=== PATIENT | female | born 1945 | race Caucasian/White ===

== ENCOUNTER 2023-02-26 10:02 | Outpatient (OUT) | payer MEDICARE, SELFPAY ==
--- NOTE | 2023-02-26 10:16 | US_ITS ---
The [address] [address] Patient Name: MEERA XIONG MRN: [id number] date: 1945 Sex: F Assigned Patient Location: US Current Patient Location: US Accession/Order Number: [id number] Exam Date: 02/26/2023 10:16 Report Date: 02/26/2023 14:31 At the request of: LAURA KIMBALL Procedure: US abdomen complete EXAM: US abdomen complete HISTORY: Periumbilical abdominal pain R10.33 COMPARISON: None. TECHNIQUE: Ultrasound of the abdomen was performed. FINDINGS: Normal contour and echotexture of the liver. No discrete hepatic mass. No intrahepatic or extrahepatic biliary ductal dilatation. Common bile duct within normal limits. Patent and normal direction color flow of the portal vein. Gallbladder is not well-visualized. Normal visualized spleen. Normal visualized pancreas. Normal echogenicity of the right kidney, which measures 10.8. cm in length. No hydronephrosis. Cortical thinning. Simple cyst, 3.0 cm, interpolar region. Normal echogenicity of the left kidney, which measures 9.2 cm in length. No hydronephrosis. Cortical thinning. Simple cyst, 0.8 cm within the upper pole. No free fluid. Normal visualized aortic diameters. IMPRESSION: 1. Gallbladder is not well-visualized. 2. No definitive findings to explain the patient's periumbilical pain although the umbilicus was not focally interrogated. 3. Bilateral renal cortical thinning/atrophy. Electronically authenticated by: HILARIO OGLESBY Date: 02/26/2023 14:31
== END 2023-02-26 10:03 ==
LOC: US 10:06
PROVIDERS: PCP Family Medicine; Visit Provider Family Medicine
DX: R10.33 Periumbilical pain (principal); Z80.0 Family history of malignant neoplasm of digestive organs; N26.1 Atrophy of kidney (terminal)
CPT/HCPCS: 76700

== ENCOUNTER 2023-03-28 09:26 | Outpatient (OUT) | payer MEDICARE, SELFPAY ==
[2023-03-28 10:14] LABS: Hematocrit 38.9 % (36.0-48.0); Hemoglobin 12.9 g/dL (12.0-16.0); Mean Corpuscular HGB Conc 33.2 g/dL (29.9-35.2); Mean Corpuscular Hemoglobin 32.3 pg (26.7-34.0); Mean Corpuscular Volume 97.5 fL (81.0-99.0); Mean Platelet Volume 10.2 fL (9.5-13.5); Platelet Count 273 10^3/uL (150-450); Red Blood Count 3.99 10^6/uL (4.20-5.40); Red Cell Distribution Width 12.5 % (11.0-15.0); White Blood Count 6.8 10^3/uL (4.0-11.0)
[2023-03-28 11:35] LABS: Sodium 142 mmol/L (136-145)
[2023-03-28 11:36] LABS: Alanine Aminotransferase 29 U/L (14-59); Albumin Level 4.1 g/dL (3.4-5.0); Alkaline Phosphatase 78 U/L (46-116); Anion Gap 14.9; Aspartate Amino Transferase 20 U/L (15-37); BUN Creatinine Ratio 16.5; Bilirubin Total 0.6 mg/dL (0.2-1.0); Carbon Dioxide 27.4 mmol/L (21.0-32.0); Chloride 104 mmol/L (98-107); Estimated GFR (African America 52 (>=60); Estimated GFR (Non-African Ame 43 (>=60); Glucose 128 mg/dL (74-106); Potassium 4.3 mmol/L (3.5-5.1); Total Protein 8.1 g/dL (6.4-8.2)
[2023-03-28 11:37] LABS: Chol HDL Ratio 2.2; Cholesterol 134 mg/dL (<=200); HDL Cholesterol 60 mg/dL (40-60); Thyroid Stimulating Hormone 0.571 uIU/mL (0.358-3.740); Triglycerides 66 mg/dL (<=150); VLDL CHOLESTEROL 13.2 mg/dL
[2023-03-28 12:41] LABS: Microalbumin Urine Random <1.3 mg/dL (<=30.0)
[2023-03-28 13:54] LABS: Estimated Average Glucose 131 mg/dL; Glycohemoglobin A1C 6.2 % (4.5-6.2)
== END 2023-03-28 09:27 | disposition home or self-care (01) ==
PROVIDERS: PCP Family Medicine
DX: E11.9 Type 2 diabetes mellitus without complications (principal); R41.3 Other amnesia; I10 Essential (primary) hypertension; E03.9 Hypothyroidism, unspecified
CPT/HCPCS: 36415; 80053; 80061; 82043; 82306; 82607; 82746; 83036; 84443; 85027

== ENCOUNTER 2023-12-11 15:39 | Emergency (ER) | payer MEDICARE, SELFPAY ==
[2023-12-11 15:46] VITALS: BP 146/59; PULSE 98; TEMP 37; O2SAT 100
--- NOTE | 2023-12-11 15:49 | XR_ITS ---
The [address] [address] Patient Name: MEERA XIONG MRN: [id number] date: 1945 Sex: F Assigned Patient Location: ER Current Patient Location: ER Accession/Order Number: [id number] Exam Date: 12/11/2023 15:58 Report Date: 12/11/2023 16:12 At the request of: ZAHRA PINA Procedure: XR elbow RT min 3V PROCEDURE: XR elbow RT min 3V HISTORY: fall ; acute right elbow pain COMPARISON: None. FINDINGS: BONES:No acute fracture or dislocation. Degenerative osteophyte projecting from coronoid process. Separate corticated ossifications adjacent the olecranon at insertion of the triceps tendon; heterotopic bone formation from remote injury versus remote fracture of large enthesophytes. SOFT TISSUES:No visible soft tissue swelling. EFFUSION:None visible. OTHER: Negative. XR/XR elbow RT min 3V IMPRESSION: 1. No appreciable acute abnormality. 2. Degenerative joint disease of the elbow. Electronically authenticated by: NUBIA CORREA Date: 12/11/2023 16:12
--- NOTE | 2023-12-11 15:49 | XR_ITS ---
The [address] [address] Patient Name: MEERA XIONG MRN: [id number] date: 1945 Sex: F Assigned Patient Location: ER Current Patient Location: ER Accession/Order Number: [id number] Exam Date: 12/11/2023 15:58 Report Date: 12/11/2023 16:18 At the request of: ZAHRA PINA Procedure: XR ribs RT min 3V w CXR1V EXAMINATION: XR ribs RT min 3V w CXR1V HISTORY: fall ; acute right rib pain COMPARISON: No relevant comparison available. FINDINGS: LUNGS: No significant pulmonary parenchymal abnormalities. PLEURA: No pneumothorax, effusion, or pleural thickening. MEDIASTINUM: No visible mass or adenopathy. CARDIAC: No cardiomegaly or cardiac silhouette abnormality. RIBS: Question of fractures of the lateral left fourth and 5th ribs. OTHER: Negative. XR/XR ribs RT min 3V w CXR1V IMPRESSION: 1. No acute cardiopulmonary process. 2. No appreciable right rib fractures. 3. Questionable fractures of the lateral left fourth and 5th ribs. (Patient history states right rib pain.) Electronically authenticated by: NUBIA CORREA Date: 12/11/2023 16:18
--- NOTE | 2023-12-11 15:50 | ED.GENADUL1 ---
HPI HPI - General Adult General Chief complaint: Upper Respiratory Infection Stated complaint: Hip Pain from Fall at home Time Seen by Provider: 12/11/23 15:47 Source: patient Mode of arrival: walk-in Limitations: no limitations History of Present Illness HPI narrative: 78-year-old female presents for pain to her right ribs and right elbow. 3 days ago she fell and landed on this area. She did not hit her head and her hip does not hurt at all. She has been able to ambulate. No abdominal pain. The pain is moderate and worse if she pushes on it. Related Data Home Medications ?Medication ?Instructions ?Recorded ?Confirmed amlodipine 10 mg tablet 10 mg PO DAILY 12/11/23 12/11/23 aspirin 81 mg chewable tablet 81 mg PO DAILY 12/11/23 12/11/23 (Juanita Chewable Low Dose Aspirin) cholecalciferol (vitamin D3) 25 25 mcg PO DAILY 12/11/23 12/11/23 mcg (1,000 unit) capsule (Vitamin D3) glimepiride 2 mg tablet 2 mg PO BID 12/11/23 12/11/23 liothyronine 5 mcg tablet 5 mcg PO .three times a week 12/11/23 12/11/23 lisinopril 40 mg tablet 40 mg PO DAILY 12/11/23 12/11/23 loratadine 10 mg tablet (Allergy 10 mg PO DAILY 12/11/23 12/11/23 Relief (loratadine)) lovastatin 40 mg tablet 40 mg PO DAILY 12/11/23 12/11/23 magnesium 250 mg tablet 250 mg PO DAILY 12/11/23 12/11/23 metformin 500 mg tablet 500 mg PO BID 12/11/23 12/11/23 Allergies Allergy/AdvReac Type Severity Reaction Status Date / Time No Known Drug Allergies Allergy Verified 12/11/23 15:46 Opioid HPI Opioid Management Most Recent Opioid Data: No Data to Display Review of Systems ROS Narrative A ten point review of systems is negative except as noted above. Exam Narrative Exam Narrative: Nurses note and vital signs reviewed and patient is not hypoxic. General: The patient appears well and in no apparent distress. Patient is resting comfortably on cart. Skin: Warm, dry, no pallor noted. There is no rash noted. Head: Normocephalic, atraumatic Eye: Normal conjunctiva, no drainage Ears, Nose, Mouth, and Throat: oral mucosa is moist. Nares patent. Cardiovascular: Regular Rate and Rhythm; she has some tenderness on the right anterior inferior rib region without crepitus bruise or abrasion Respiratory: Patient is in no distress, no accessory muscle use, lungs are clear to auscultation, no wheezing, rales or rhonchi Back: non-tender GI: Normal bowel sounds, no tenderness to palpation, no masses appreciated. No rebound, guarding, or rigidity noted. Musculoskeletal: Right elbow has some yellow bruising but has full range of motion, she is fully able to extend it. No break in the skin. Neurological: Awake and alert Psychiatric: Cooperative Constitutional Vital Signs, click to edit/add: Last Vital Signs Temp 98.6 F 12/11/23 15:46 Pulse 98 H 12/11/23 15:46 Resp 17 12/11/23 15:46 BP 146/59 H 12/11/23 15:46 Pulse Ox 100 12/11/23 15:46 O2 Del Method Room Air 12/11/23 15:46 Course Vital Signs Vital signs: Vital Signs Temperature 98.6 F 12/11/23 15:46 Pulse Rate 98 H 12/11/23 15:46 Respiratory Rate 17 12/11/23 15:46 Blood Pressure 146/59 H 12/11/23 15:46 Pulse Oximetry 100 12/11/23 15:46 Oxygen Delivery Method Room Air 12/11/23 15:46 Temperature 98.6 F 12/11/23 15:46 Pulse Rate 98 H 12/11/23 15:46 Respiratory Rate 17 12/11/23 15:46 Blood Pressure 146/59 H 12/11/23 15:46 Pulse Oximetry 100 12/11/23 15:46 Oxygen Delivery Method Room Air 12/11/23 15:46 Medical Decision Making MDM Narrative Medical decision making narrative: X-rays of elbow and ribs show no fracture. Findings are discussed with the patient and her family and she is discharged home. She is recommended Tylenol and ice. Treatment diagnosis and follow-up were discussed with the patient. The patient has no symptoms on the left side of her chest and the findings on the rib x-rays do not correlate with any symptoms on the left side. Differential Diagnosis Differential Diagnosis: Rib fracture, rib contusion, pneumothorax, elbow fracture, elbow contusion Imaging Data Rib x-rays: Radiologist's impression: ITS Impressions Elbow X-Ray 12/11/23 15:49 IMPRESSION: 1. No appreciable acute abnormality. 2. Degenerative joint disease of the elbow. Electronically authenticated by: NUBIA CORREA Date: 12/11/2023 16:12 Ribs X-Ray 12/11/23 15:49 IMPRESSION: 1. No acute cardiopulmonary process. 2. No appreciable right rib fractures. 3. Questionable fractures of the lateral left fourth and 5th ribs. (Patient history states right rib pain.) Electronically authenticated by: NUBIA CORREA Date: 12/11/2023 16:18 Discharge Plan Discharge Stand Alone Forms: Portal Instructions Chief Complaint: Upper Respiratory Infection Clinical Impression: Chest wall contusion Patient Disposition: Home, Self-Care Time of Disposition Decision: 16:31 Condition: Good Mode of Transportation: Private Vehicle Prescriptions / Home Meds: No Action amlodipine 10 mg tablet 10 mg PO DAILY liothyronine 5 mcg tablet 5 mcg PO .three times a week lovastatin 40 mg tablet 40 mg PO DAILY metformin 500 mg tablet 500 mg PO BID lisinopril 40 mg tablet 40 mg PO DAILY glimepiride 2 mg tablet 2 mg PO BID loratadine [Allergy Relief (loratadine)] 10 mg tablet 10 mg PO DAILY aspirin [Juanita Chewable Aspirin] 81 mg tablet,chewable 81 mg PO DAILY magnesium 250 mg tablet 250 mg PO DAILY cholecalciferol (vitamin D3) [Vitamin D3] 25 mcg (1,000 unit) capsule 25 mcg PO DAILY Print Language: Nepalese Instructions: Rib Contusion (ED) Referrals: Paty Dyer DO [Primary Care Provider] - 1 week
== END 2023-12-11 16:37 | disposition home or self-care (01) ==
PROVIDERS: Emergency Provider Emergency Medicine; PCP Family Medicine
DX: S20.219A Contusion of unspecified front wall of thorax, initial encounter (principal); W19.XXXA Unspecified fall, initial encounter; Z79.82 Long term (current) use of aspirin; Z79.899 Other long term (current) drug therapy; Z79.890 Hormone replacement therapy; Z79.84 Long term (current) use of oral hypoglycemic drugs
CPT/HCPCS: 71101; 73080; 99284

== ENCOUNTER 2024-02-08 08:40 | Outpatient (OUT) | payer MEDICARE, OTHER, SELFPAY ==
--- NOTE | 2024-02-08 08:45 | MM_ITS ---
Patient Name: MEERA XIONG MR#: [id number] : 1945 Exam Date: 02/08/2024 Ordering Doctor: Paty Dyer RADIOLOGY REPORT PROCEDURE: MM TOMOSYNTHESIS SCREENING BI COMPARISON: MG MAMM SCREEN 3D KARSTEN CAD, 02/06/2023. MG MAMM SCREEN 3D KARSTEN CAD, 02/02/2022. MG MAMM SCREEN 3D KARSTEN CAD, 01/31/2021. MG MAMM KARSTEN SCRN W CAD DIG, 09/12/2013. INDICATIONS: Screening Calculator Name NCI Breast Cancer Risk Assessment Tool 5 Year Breast Cancer Risk 1.80% Lifetime Breast Cancer Risk 3.00% Personal Breast Cancer No Personal Ovarian Cancer No Treatments None Family Cancers Aunt-maternal with breast cancer at age 83; Mother with pancreatic cancer at age 84. LOCATION: [facility] BREAST COMPOSITION: There are scattered areas of fibroglandular density. FINDINGS: DIAGNOSTIC CATEGORY 2--BENIGN FINDING: RIGHT BREAST: No significant suspicious finding. Scattered benign-appearing calcifications are present. Stable, chronic lower-outer quadrant lymph node. No significant change has occurred. LEFT BREAST: No significant suspicious finding. Scattered benign-appearing calcifications are present. No significant change has occurred. RECOMMENDATIONS: ROUTINE MAMMOGRAM AND CLINICAL EVALUATION IN 12 MONTHS. PLEASE NOTE: A NORMAL MAMMOGRAM DOES NOT EXCLUDE THE POSSIBILITY OF BREAST CANCER. A CLINICALLY SUSPICIOUS PALPABLE LUMP SHOULD BE BIOPSIED. Dictated by: Billy Pace M.D. on 02/08/2024 at 14:09 Approved by: Billy Pace M.D. on 02/08/2024 at 14:12
--- NOTE | 2024-02-08 08:46 | XR_ITS ---
[address] [address] Patient Name: MEERA XIONG MRN: [id number] date: 1945 Sex: F Assigned Patient Location: [facility] Current Patient Location: [facility] Accession/Order Number: [id number] Exam Date: 02/08/2024 09:30 Report Date: 02/08/2024 11:55 At the request of: FERNANDO KAPADIA Procedure: XR DEXA axial skeleton EXAMINATION: XR DEXA axial skeleton HISTORY: Postmenopausal Status COMPARISON: DEXA bone densitometry 02/02/2022 TECHNIQUE: Dual-energy X-ray absorptiometry (DXA) was performed. FINDINGS: SPINE ANALYSIS: Average bone mineral density is 1.663 g/cm2. T-score (standard deviation relative to young adult mean): 4.0 . +0.9% change is prior study. HIP ANALYSIS: Lowest bone mineral density is within the right femoral neck, 0.963 g/cm2. T-score (standard deviation relative to young adult mean): -0.5 . -4.6% change since prior study. XR/XR DEXA axial skeleton IMPRESSION: [employer] Classification: Normal - Low Fracture Risk FRAX: Cannot be calculated. Electronically authenticated by: NUBIA CORREA Date: 02/08/2024 11:55
== END 2024-02-08 08:41 | disposition home or self-care (01) ==
LOC: MAMMO 08:40
PROVIDERS: PCP Family Medicine; Visit Provider Family Medicine
DX: Z12.31 Encounter for screening mammogram for malignant neoplasm of breast (principal); Z78.0 Asymptomatic menopausal state; Z80.3 Family history of malignant neoplasm of breast; Z80.8 Family history of malignant neoplasm of other organs or systems
CPT/HCPCS: 77063; 77067; 77080

== ENCOUNTER 2024-05-21 16:11 | Emergency (ER) | payer MEDICARE, SELFPAY ==
[2024-05-21 16:19] VITALS: BP 145/59; PULSE 88; TEMP 36.5; O2SAT 100; BMI 22.9
--- NOTE | 2024-05-21 16:39 | CT_ITS ---
The [address] [address] Patient Name: MEERA XIONG MRN: [id number] date: 1945 Sex: F Assigned Patient Location: ER Current Patient Location: Accession/Order Number: [id number] Exam Date: 05/21/2024 17:50 Report Date: 05/21/2024 18:52 At the request of: AMILCAR SANCHEZ Procedure: CT abdomen pelvis w con EXAM: CT abdomen pelvis w con HISTORY: R abd pain COMPARISON: None. TECHNIQUE: Axial CT imaging was performed through the abdomen and pelvis with intravenous contrast. Multiplanar reformats were performed. Dose reduction techniques were achieved by using automated exposure control and/or adjustment of mA and/or kV according to patient size and/or use of iterative reconstruction technique. FINDINGS: Lung bases: There is a 0.2 cm right middle lobe pulmonary nodule. GI upper: Unremarkable. Liver: Hepatic steatosis. Normal size and contour. Gallbladder: Cholecystectomy. Biliary system: No intra or extrahepatic biliary ductal dilatation. Spleen: Normal size. Pancreas: Unremarkable. Adrenal glands: Normal adrenal glands. Kidneys/ureters: Normal contours. No hydronephrosis. There is a 0.3 cm right renal stone. There is a 3.4 cm right renal simple cyst Vessels: No aneurysm. Lymph Nodes: No lymphadenopathy. Small bowel: No wall thickening or dilatation. Colon: No wall thickening or dilatation. Moderate volume stool burden. Appendix: No findings of appendicitis. Peritoneal cavity: No free fluid or pneumoperitoneum. Lower : Unremarkable. Bones: No acute bony abnormality. Soft tissues: No acute finding. Additional findings: None. CT/CT abdomen pelvis w con IMPRESSION: a 0.3 cm right renal stone. Constipation. Electronically authenticated by: ELVIRA MALIK Date: 05/21/2024 18:52
--- NOTE | 2024-05-21 16:43 | ED_ITS ---
HPI HPI - General Adult General Chief complaint: Abdominal Pain Stated complaint: FLANK PAIN Time Seen by Provider: 05/21/24 16:22 Source: patient Mode of arrival: walk-in Limitations: no limitations History of Present Illness HPI narrative: Patient presents to ED complaining of right sided abdominal pain and flank pain. She said this was going on about a month but maybe a little bit more than a month. About a month ago she saw her doctor for this and they did a KUB and a urine test. They said her urine looked slightly infected but not enough to put her on antibiotics. They have not heard anything back about the KUB so they are assuming that they did not find anything abnormal. Patient continues to have pain with bending twisting sitting up. She has decreased appetite and planes of constipation. They have had her on some stool softeners but it does not seem to work. Patient's family reports a weight loss and the patient reports that food just does not taste good. No chest pain no vomiting no fevers. She denies any UTI symptoms. Related Data Home Medications ?Medication ?Instructions ?Recorded ?Confirmed amlodipine 10 mg tablet 10 mg PO DAILY 12/11/23 12/11/23 aspirin 81 mg chewable tablet 81 mg PO DAILY 12/11/23 12/11/23 (Juanita Chewable Low Dose Aspirin) cholecalciferol (vitamin D3) 25 25 mcg PO DAILY 12/11/23 12/11/23 mcg (1,000 unit) capsule (Vitamin D3) glimepiride 2 mg tablet 2 mg PO BID 12/11/23 12/11/23 liothyronine 5 mcg tablet 5 mcg PO .three times a week 12/11/23 12/11/23 lisinopril 40 mg tablet 40 mg PO DAILY 12/11/23 12/11/23 loratadine 10 mg tablet (Allergy 10 mg PO DAILY 12/11/23 12/11/23 Relief (loratadine)) lovastatin 40 mg tablet 40 mg PO DAILY 12/11/23 12/11/23 magnesium 250 mg tablet 250 mg PO DAILY 12/11/23 12/11/23 metformin 500 mg tablet 500 mg PO BID 12/11/23 12/11/23 Allergies Allergy/AdvReac Type Severity Reaction Status Date / Time No Known Drug Allergies Allergy Verified 05/21/24 16:23 Opioid HPI Opioid Management Most Recent Opioid Data: Last Pain Scale 10 05/21/24 16:48 Review of Systems ROS Status of ROS 10 or more systems reviewed and unremark able except as noted in history and below Exam Narrative Exam Narrative: Time Seen: [] Vital Signs: [Per nurse's notes.] General: [Alert] Skin: [Warm, dry, no rash.] Head: [Normocephalic, atraumatic.] Neck: [Supple, trachea midline.] Eye: [Pupils are equal, round and reactive to light, extraocular movements are intact, normal conjunctiva.] Ears, nose, mouth and throat: oral mucosa moist. Cardiovascular: [Regular rate and rhythm, no murmur.] Respiratory: [Lungs are clear to auscultation, respirations are non-labored, breath sounds are equal.] Chest wall: [No tenderness, no deformity.] Gastrointestinal: [Soft, Tenderness and mild firmness to the right side of the abdomen and right CVA tenderness non distended, normal bowel sounds.] MSK: 5 out of 5 muscle strength x 4 extremities no calf pain or edema Lymphatics: [No lymphadenopathy.] Psychiatric: [Cooperative, appropriate mood & affect.] Neurological: [Alert and oriented to person, place, time, and situation, no focal neurological deficit observed.] Constitutional Vital Signs, click to edit/add: Last Vital Signs Temp 97.7 F 05/21/24 16:19 Pulse 88 05/21/24 16:19 Resp 18 05/21/24 16:19 BP 145/59 H 05/21/24 16:19 Pulse Ox 99 05/21/24 16:50 O2 Del Method Room Air 05/21/24 16:50 Course Vital Signs Vital signs: Vital Signs Temperature 97.7 F 05/21/24 16:19 Pulse Rate 88 05/21/24 16:19 Respiratory Rate 18 05/21/24 16:19 Blood Pressure 145/59 H 05/21/24 16:19 Pulse Oximetry 100 05/21/24 16:19 Oxygen Delivery Method Room Air 05/21/24 16:19 Temperature 97.7 F 05/21/24 16:19 Pulse Rate 88 05/21/24 16:19 Respiratory Rate 18 05/21/24 16:19 Blood Pressure 145/59 H 05/21/24 16:19 Pulse Oximetry 99 05/21/24 16:50 Oxygen Delivery Method Room Air 05/21/24 16:50 Medical Decision Making MDM Narrative Medical decision making narrative: Patient CT scan shows constipation. A right renal stone but no obstructive uropathy. Patient's labs are nonacute. Patient was counseled on taking MiraLAX twice a day until she has regular bowel movements and also using fleets enema at home. Follow-up with family doctor. Return to ER if worsening symptoms. Patient and family are comfortable with care plan for home. Differential Diagnosis Differential Diagnosis: Kidney stone UTI constipation mass Lab Data Lab results reviewed: Yes I reviewed the patient's lab results Labs: Lab Results 05/21/24 05/21/24 Range/Units 16:56 16:59 WBC 8.5 (4.0-11.0) 10^3/uL RBC 3.91 L (4.20-5.40) 10^6/uL Hgb 12.7 (12.0-16.0) g/dL Hct 37.3 (36.0-48.0) % MCV 95.4 (81.0-99.0) fL MCH 32.5 (26.7-34.0) pg MCHC 34.0 (29.9-35.2) g/dL RDW 12.4 (11.0-15.0) % Plt Count 260 (150-450) 10^3/uL MPV 10.2 (9.5-13.5) fL Neut % (Auto) 48.9 (43.0-75.0) % Lymph % (Auto) 35.1 (20.5-60.0) % [place] % (Auto) 13.1 H (1.7-12.0) % Eos % (Auto) 1.8 (0.9-7.0) % Baso % (Auto) 0.7 (0.2-2.0) % Neut # (Auto) 4.1 (1.4-6.5) 10^3/uL Lymph # (Auto) 3.0 (1.2-3.8) 10^3/uL [place] # (Auto) 1.1 H (0.3-0.8) 10^3/uL Eos # (Auto) 0.2 (0.0-0.7) 10^3/uL Baso # (Auto) 0.1 (0.0-0.1) 10^3/uL Abs Immat Gran (auto) 0.03 (0.00-0.03) 10^3/uL Imm/Tot Granulo (auto) 0.4 (0.0-0.5) % Sodium 138 (136-145) mmol/L Potassium 4.5 (3.5-5.1) mmol/L Chloride 101 (98-107) mmol/L Carbon Dioxide 28.7 (21.0-32.0) mmol/L Anion Gap 12.8 BUN 19.0 H (7.0-18.0) mg/dL Creatinine 1.25 H (0.55-1.02) mg/dL Est GFR ( Amer) 50 L (>=60) Est GFR (Non-Af Amer) 41 L (>=60) BUN/Creatinine Ratio 15.2 Glucose 124 H (74-106) mg/dL Calcium 9.5 (8.5-10.1) mg/dL Total Bilirubin 0.4 (0.2-1.0) mg/dL AST 19 (15-37) U/L ALT 19 (14-59) U/L Alkaline Phosphatase 74 (46-116) U/L Total Protein 7.6 (6.4-8.2) g/dL Albumin 3.9 (3.4-5.0) g/dL Globulin 3.7 g/dL Albumin/Globulin Ratio 1.1 Urine Color Yellow (YELLOW) Urine Clarity Clear (CLEAR) Urine pH 6.0 (5.0-9.0) Ur Specific [place] 1.020 (1.005-1.025) Urine Protein Trace (NEG/TRACE) mg/dL Urine Glucose (UA) Negative (NEGATIVE) mg/dL Urine Ketones 15 A (NEGATIVE) mg/dL Urine Occult Blood Negative (NEGATIVE) Urine Nitrite Negative (NEGATIVE) Urine Bilirubin Negative (NEGATIVE) Urine Urobilinogen 1.0 (0.2-1.0) EU/dL Ur Leukocyte Esterase Negative (NEGATIVE) Imaging Data CT scan - abdomen: Radiologist's impression: ITS Impressions Abdomen/Pelvis CT 05/21/24 16:39 IMPRESSION: a 0.3 cm right renal stone. Constipation. Electronically authenticated by: ELVIRA MALIK Date: 05/21/2024 18:52 Discharge Plan Discharge Chief Complaint: Abdominal Pain Clinical Impression: Constipation Patient Disposition: Home, Self-Care Time of Disposition Decision: 18:59 Condition: Good Prescriptions / Home Meds: No Action amlodipine 10 mg tablet 10 mg PO DAILY liothyronine 5 mcg tablet 5 mcg PO .three times a week lovastatin 40 mg tablet 40 mg PO DAILY metformin 500 mg tablet 500 mg PO BID lisinopril 40 mg tablet 40 mg PO DAILY glimepiride 2 mg tablet 2 mg PO BID loratadine [Allergy Relief (loratadine)] 10 mg tablet 10 mg PO DAILY aspirin [Juanita Chewable Aspirin] 81 mg tablet,chewable 81 mg PO DAILY magnesium 250 mg tablet 250 mg PO DAILY cholecalciferol (vitamin D3) [Vitamin D3] 25 mcg (1,000 unit) capsule 25 mcg PO DAILY Print Language: Montenegrin Instructions: Constipation (ED) Referrals: Paty Dyer DO [Primary Care Provider] - 1 week
[2024-05-21 16:50] VITALS: O2SAT 99
[2024-05-21 17:05] LABS: Basophils Absolute Auto 0.1 10^3/uL (0.0-0.1); Basophils Percent Auto 0.7 % (0.2-2.0); Eosinophils Absolute Auto 0.2 10^3/uL (0.0-0.7); Eosinophils Percent Auto 1.8 % (0.9-7.0); Hematocrit 37.3 % (36.0-48.0); Hemoglobin 12.7 g/dL (12.0-16.0); Immature Granulocytes Abs Auto 0.03 10^3/uL (0.00-0.03); Immature Granulocytes Pct Auto 0.4 % (0.0-0.5); Lymphocytes Percent Auto 35.1 % (20.5-60.0); Mean Corpuscular Hemoglobin 32.5 pg (26.7-34.0); Mean Corpuscular Volume 95.4 fL (81.0-99.0); Mean Platelet Volume 10.2 fL (9.5-13.5); Monocytes Absolute Auto 1.1 10^3/uL (0.3-0.8); Monocytes Percent Auto 13.1 % (1.7-12.0); Neutrophils Absolute Auto 4.1 10^3/uL (1.4-6.5); Neutrophils Percent Auto 48.9 % (43.0-75.0); Platelet Count 260 10^3/uL (150-450); Red Blood Count 3.91 10^6/uL (4.20-5.40); Red Cell Distribution Width 12.4 % (11.0-15.0); White Blood Count 8.5 10^3/uL (4.0-11.0)
[2024-05-21 17:05] LABS: Bilirubin Urine NEGATIVE (NEGATIVE); Blood Urine NEGATIVE (NEGATIVE); Clarity Urine CLEAR (CLEAR); Color Urine YELLOW (YELLOW); Glucose Urine UA NEGATIVE (NEGATIVE); Ketones Urine 15 mg/dL (NEGATIVE); Leukocyte Esterase Urine NEGATIVE (NEGATIVE); Nitrite Urine NEGATIVE (NEGATIVE); Protein Urine TRACE mg/dL (NEG/TRACE)
[2024-05-21 17:06] LABS: Urine Microscopic Indicated NO
--- OUTSIDE RECORDS SUMMARY | 2024-05-21 17:13 | XMS_ITS | CCD ---
Author Organization [facility] Care Team Providers Care Discharge Rn Name Role Phone ANYALONG, DR JORDAN Mcnair Admitting Unavailable FURLONG, DR JORDAN Mcnair Attending Unavailable FURLONG, DR JORDAN Mcnair Consulting Unavailable FURLONG, DR JORDAN Mcnair Primary Care Unavailable FURLONG, DR JORDAN Mcnair Primary Care Unavailable NATAPRAWI, MARIN Admitting Unavailable ONECO, DR GUSTAVO Coleman Consulting Unavailable NATAPRAWIRA, MARIN Attending Unavailable NATAPRAWIRA, MARIN Consulting Unavailable FURLONG, DR JORDAN Mcnair Admitting Unavailable FURLONG, DR JORDAN Mcnair Attending Unavailable FURLONG, DR JORDAN Mcnair Consulting Unavailable FURLONG, DR JORDAN Mcnair Primary Care Unavailable LAURA ., DESHAUN Admitting Unavailable LAURA ., DESHAUN Attending Unavailable LAURA ., DESHAUN Consulting Unavailable FURLONG, DR JORDAN Mcnair Primary Care Unavailable BECKY CLIFTON Consulting Unavailable Dyer, Paty Unavailable MARIN RASHID Attending Unavailable Dyer, DO Paty A Primary Care Provider Dyer, DO Paty A Attending Provider Dyer, DO Paty A Primary Care Provider [phone] SAMANTHA Burns Attending Provider Henry Burns Attending Unavailable Henry Burns Admitting Unavailable Dyer, Paty A Primary Care Unavailable Dyer, Paty A Primary Care Unavailable Henry Burns Attending Unavailable Henry Burns Admitting Unavailable Dyer, Paty A Attending Unavailable Dyer, Paty A Primary Care Unavailable Dyer, Paty A Admitting Unavailable Dyer, Paty A Attending Unavailable Dyer, Paty A Primary Care Unavailable Dyer, Paty A Admitting Unavailable Dyer, Paty A Primary Care Unavailable Paty Dyer Admitting Unavailable Paty Dyer Attending Unavailable Medications Current Medications Medication Drug Class(es) Dates Sig (Normalized) Sig (Original) amLODIPine 10 mg oral tablet (20 sources) Dihydropyridine Calcium Channel Luís Start: 11-05-2023 End: 12-26-2023 take 10 mg by mouth once daily Amlodipine Active 10 MG PO Daily December 26, 2023 12:00am take 1 tablet by ollie every twenty-four hours amLODIPine Besylate 10 MG 1 tablet Orall y Once a day Active cholecalciferol 0.025 mg oral capsule (11 sources) Vitamin D Start: 11-05-2023 take 25 ug by mouth once daily Cholecalciferol (Vitamin D3) Active 25 MCG PO Daily November 05, 2023 1:00am take 1 capsule by mo [facility] every twenty-four hours Vitamin D3 25 MCG (1000 UT) 1 capsule Orally Once a day Not-Taking/PRN docusate sodium 100 mg oral capsule (20 sources) Start: 11-05-2023 End: 12-14-2023 take 100 mg by mouth once daily Docusate Sodium Active 100 MG PO Daily December 14, 2023 10:54am take 1 capsule by mo [facility] every twenty-four hours Stool Softener 100 MG 1 capsule as needed Orally Once a day Active levothyroxine sodium 0.075 mg oral tablet (14 sources) l-Thyroxine Start: 11-05-2023 take 1 tablet by mouth once daily in the morning Levothyroxine Active 1 TAB PO Daily November 05, 2023 1:00am FreeTextSi tablet in the morning on an empty stomach Orally Once a day; Note: Source Status: Refill; Refills: 3; Qty: 90 Tablet; Provider: Katherin Ortega take 1 tablet by ollie th once daily in the morning Levothyroxine Sodium 75 MCG 1 tablet in the morning on an empty stomach Orally Once a day for 90 days Active take 1 tablet by ollie th once daily in the morning Levothyroxine Sodium 75 MCG 1 tablet in the morning on an empty stomach Orally Once a day for 90 days Active liothyronine sodium 0.005 mg oral tablet (18 sources) l-Triiodothyronine Start: 11-05-2023 End: 03-26-2024 take 5 ug by mouth three times weekly Liothyronine Active 5 MCG PO 3 Times a week 39 90 March 26, 2024 7:54am take 1 tablet by ollie th three times weekly Liothyronine Sodium 5 MCG 1 tablet Orall y three times a week Active take 1 tablet by ollie th three times weekly Liothyronine Sodium 5 MCG 1 tablet Orall y three times a week Active lovastatin 40 mg oral tablet (14 sources) HMG-CoA Reductase Inhibitor Start: 11-05-2023 take 1 tablet by mouth once daily Lovastatin Active 1 TAB PO Daily November 05, 2023 1:00am FreeTextSi Tablet Orally Once a day; Note: Source Status: Taking; Provider: Katherin Ortega take 1 tablet by ollie th every twenty-four hours Lovastatin 40 MG 1 Tablet Orally Once a day Active meclizine hydrochloride 12.5 mg oral tablet (20 sources) Antiemetic Start: 11-05-2023 End: 12-26-2023 take 1 tablet by mouth three times daily as needed Meclizine Active 12.5 MG PO Three times daily December 26, 2023 8:51am 1 tablet as needed Orally three times a day take 1 tablet by mouth every eig ht hours Meclizine HCl 12.5 MG 1 tablet as needed Orally three times a day Active metFORMIN hydrochloride 500 mg oral tablet (20 sources) Biguanide Start: 12-26-2023 take 500 mg by mouth twice daily Metformin Active 500 MG PO Twice daily December 26, 2023 12:00am Start: 11-05-2023 End: 12-26-2023 take 0.5 tablet by mouth twice daily Metformin Discontinued 0.5 TAB PO Twice daily November 05, 2023 1:00am December 26, 2023 8:55am FreeTextSi/2 tablet Orally twice a day; Note: Source Status: Taking; Provider: Katherin Ortega take 0.5 tablet by m outh twice daily metFORMIN HCl 1000 MG 1/2 tablet Orally twice a day Active 24 hr mirabegron 25 mg extended release oral tablet (14 sources) beta3-Adrenergic Agonist Start: 11-05-2023 take 1 tablet by mouth once daily Mirabegron (Myrbetriq) 25 mg tablet extended release 24 hr Active 1 TAB PO Daily November 05, 2023 1:00am FreeTextSi tablet Orally Once a day; Note: Source Status: Refill; Refills: 3; Qty: 90 Tablet; Provider: Katherin Ortega take 1 tablet by ollie th every twenty-four hours Myrbetriq 25 MG 1 tablet Orally Once a day for 90 days Active klauibhucyzg-iurqlelm-gebypm (Centrum Silver) (9 sources) Start: 11-05-2023 epxphxsyhskt-cjxxekxk-uykmte (Centrum Silver) Active PO November 05, 2023 1:00am omega-3 fatty acids (Fish Oi l) (9 sources) Start: 11-05-2023 omega-3 fatty acids (Fish Oi l) Active PO November 05, 2023 1:00am Potassium (6 sources) Start: 12-26-2023 take 1 mg by mouth once daily Potassium Active MG PO Daily December 26, 2023 12:00am Completed/Discontinued Medications Medication Drug Class(es) Dates Sig (Normalized) Sig (Original) aspirin 81 mg delayed release oral tablet (14 sources) Platelet Aggregation Inhibitor, Nonsteroidal Anti-inflammatory Drug Start: 11-05-2023 End: 12-14-2023 take 81 mg by mouth once daily Aspirin Discontinued 81 MG PO Daily November 05, 2023 1:00am December 14, 2023 10:56am take 1 tablet by ollie th every twenty-four hours Aspirin 81 81 MG 1 tablet Orally Once a day Active take 1 tablet by mouth once luis angel y Aspirin 81 81 MG 1 tablet Orally Once a day Active cefTRIAXone (5 sources) Cephalosporin Antibacterial Start: 08-01-2016 Ro cephin 500 mg Jul, 250 mg Centrum Silver (5 sources) Centrum Silver Not-Taking/PRN Centrum Silver N ot-Taking Centrum Silver A ctive DHEA 50 MG (3 sources) DHEA 50 MG as di rected Orally Not-Taking DHEA 50 MG as di rected Orally Active Fish Oils (5 sources) Fish Oil Not-Colby ing/PRN Fish Oil Not-Colby ing Fish Oil Active hydroCHLOROthiazide 50 mg oral tablet (14 sources) Thiazide Diuretic Start: 11-05-2023 End: 12-14-2023 take 1 tablet by mouth once daily Hydrochlorothiazide Discontinued 1 TAB PO Daily November 05, 2023 1:00am December 14, 2023 1:40pm FreeTextSi Tablet Orally Once a day; Note: Source Status: Not-Taking\PRN; Provider: Manisha Newman ( ) take 1 tablet by ollie th every twenty-four hours hydroCHLOROthiazide 50 MG 1 Tablet Orall y Once a day Not-Taking/PRN lisinopril 20 mg oral tablet (20 sources) Angiotensin Converting Enzyme Inhibitor Start: 12-26-2023 End: 12-26-2023 take 20 mg by mouth once daily Lisinopril Discontinued 20 MG PO Daily December 26, 2023 12:00am December 26, 2023 9:19am Start: 11-05-2023 End: 12-26-2023 take 0.5 tablet by mouth once daily Lisinopril Discontinued 0.5 TAB PO Daily November 05, 2023 1:00am December 26, 2023 9:17am FreeTextSi/2 tablet Orally Once a day; Note: Source Status: Refill; Refills: 3; Qty: 45 tablet; Provider: Manisha Cooper take 0.5 tablet by m out once daily Lisinopril 40 MG 1/2 tablet Orally Once a day for 90 days Active losartan potassium 100 mg oral tablet (14 sources) Angiotensin 2 Receptor Luís Start: 11-05-2023 End: 12-14-2023 take 100 mg by mouth once daily Losartan Discontinued 100 MG PO Daily November 05, 2023 1:00am December 14, 2023 1:40pm take 1 tablet by ollie th every twenty-four hours Losartan Potassium 100 MG 1 tablet Orall y Once a day Not-Taking/PRN Potassium gluconate (14 sources) Start: 11-05-2023 End: 12-26-2023 potassium gluconate Disconti nued PO November 05, 2023 1:00am December 26, 2023 8:58am Start: 11-05-2023 potassium gluc brianna Active PO November 05, 2023 1:00am Potassium Glucon ate Not-Taking/PRN Potassium Glucon ate Not-Taking Potassium Glucon ate Active prasterone 50 mg oral capsul e (11 sources) Start: 11-05-2023 End: 12-14-2023 Prasterone (Dhea) Discontinu ed MG PO As Directed November 05, 2023 1:00am December 14, 2023 10:58am FreeTextSig: as directed Orally; Note: Source Status: Not-Taking\PRN; Provider: OTC DHEA 50 MG as di rected Orally Not-Taking/PRN Vitamin D3 25 MCG (1000 UT) (3 sources) take 1 capsule by mo uth once daily Vitamin D3 25 MCG (1000 UT) 1 capsule Orally Once a day Not-Taking take 1 capsule by mouth once pina ly Vitamin D3 25 MCG (1000 UT) 1 capsule Orally Once a day Active Problems Active Problems Problem Classification Problem Date Documented Da te Episodic/Chronic Abdominal pain (4 sources) Unspecified abdominal pain; Translations: [Abdominal pain, other specified site] Onset: 05-06-2024 05-05-2024 Episodic Chronic kidney disease (5 sources) Chronic kidney disease; Translations: [CHRONIC KIDNEY DISEASE STAGE 3A] Onset: 07-20-2022 Conditions associated with dizziness or vertigo (1 source) Dizziness and giddiness Episodic Diabetes mellitus with complications (5 sources) Type 2 diabetes mellitus with diabetic chronic kidney disease; Translations: [TYPE 2 DM W/DIABETIC CKD] Onset: 07-24-2022 Chronic Diabetes mellitus without complication (20 sources) Type 2 diabetes mellitus; Translations: [Type 2 diabetes mellitus without complications] Onset: 12-26-2023 Chronic Disorders of lipid metabolism (1 source) Mixed hyperlipidemia; Translations: [MIXED HYPERLIPIDEMIA] Onset: 11-13-2022 Chronic Essential hypertension (20 sources) Essential (primary) hypertension; Translations: [Essential hypertension] Onset: 11-13-2022 Chronic Headache; including migraine (3 sources) Headache; including migraine; Translations: [HEADACHE UNSPECIFIED] Onset: 07-15-2022 Other diseases of bladder and urethra (13 sources) Overactive bladder; Translations: [Overactive bladder] 11-05-2023 Chronic Other diseases of bladder and urethra (4 sources) Overactive bladder; Translations: [Overactive bladder] Onset: 12-14-2023 Chronic Other gastrointestinal disorders (12 sources) Constipation; Translations: [Constipation, unspecified] 11-05-2023 Episodic Other gastrointestinal disorders (1 source) Constipation, unspecified Episodic Other screening for suspected conditions (not mental disorders or infectious disease) (4 sources) Encounter for screening mammogram for malignant neoplasm of breast; Translations: [ENC SCR MAMMO MALIG NEOPLASM BREAST] Onset: 02-06-2023 Episodic Residual codes; unclassified (1 source) Family history of malignant neoplasm of breast; Translations: [FAMILY HX MALIG NEOPLASM OF BREAST] Onset: 02-07-2023 Episodic Residual codes; unclassified (1 source) Family history of malignant neoplasm of other organs or systems; Translations: [FAM HX MALIG NEOPLASM OTH ORGN/SYS] Onset: 02-07-2023 Episodic Residual codes; unclassified (14 sources) Memory impairment; Translations: [Other amnesia] 11-05-2023 Episodic Residual codes; unclassified (9 sources) Age-associated memory impairment; Translations: [Other amnesia] 11-05-2023 Episodic Thyroid disorders (20 sources) Hypothyroidism, unspecified; Translations: [Hypothyroidism] Onset: 07-24-2022 Chronic Past or Other Problems Problem Classification Problem Date Documented Da te Episodic/Chronic E Codes: Fall (1 source) Unspecified fall, initial encounter; Translations: [UNSPECIFIED FALL INITIAL ENCOUNTER] Onset: 07-18-2022 Episodic Nausea and vomiting (1 source) Nausea with vomiting, unspecified; Translations: [NAUSEA WITH VOMITING UNSPECIFIED] Onset: 07-24-2022 Episodic Other injuries and conditions due to external causes (1 source) Other specified injuries of head, initial encounter; Translations: [OTH SPEC INJURIES HEAD INITIAL ENC] Onset: 07-18-2022 Episodic Other non-traumatic joint disorders (1 source) Pain in left shoulder; Translations: [PAIN IN LEFT SHOULDER] Onset: 07-18-2022 Episodic Other non-traumatic joint disorders (1 source) Pain in right shoulder; Translations: [PAIN IN RIGHT SHOULDER] Onset: 07-18-2022 Episodic Residual codes; unclassified (12 sources) Other amnesia; Translations: [Memory loss] Onset: 11-23-2023 Episodic Spondylosis; intervertebral disc disorders; other back problems (1 source) Spinal stenosis, cervical region; Translations: [SPINAL STENOSIS CERVICAL REGION] Onset: 07-18-2022 Episodic Superficial injury; contusion (1 source) Contusion of scalp, initial encounter; Translations: [CONTUSION SCALP INITIAL ENCOUNTER] Onset: 07-18-2022 Episodic Results Test Name Value Interpretation Reference Range Facility Bacteria [Presence] in Urine by AutomatedOrdered By: Henry Burns on 05-05-2024 Bacteria Auto Ql (U) 1+ [HPF] High None Seen [facility] Bilirubin Test strip Ql (U)O rdered By: Henry Grant on 05-05-2024 Bilirubin Ql (U) Negative Negative [facility] Color of Urine by AutoOrdere d By: Henry Grant on 05-05-2024 Color (U) Yellow Normal Yellow [facility] Comment on above: Order Comment: Name Collection Type:: Voided Performed By: #### A DDONUAPLUS, CUU #### [place] [address] [place] Dipstick and Microscopicon 0 05-05-2024 Bacteria,Urine 1+ High None Seen [facility] Comment on above: Order Comment: Name Collection Type:: Voided Performed By: #### A DDONUAPLUS, CUU #### [place] [address] [place] Bilirubin,Urine Negative Normal Negative [facility] Comment on above: Order Comment: Name Collection Type:: Voided Performed By: #### A DDONUAPLUS, CUU #### [place] [address] [place] Budding Yeast,Urine 1+ High None Seen [facility] Comment on above: Order Comment: Name Collection Type:: Voided Result Comment: PERF ORMED BY: [place] [address] PATHOLOGIST ONLINE MEDIA DIRECTOR JOEY ANAND M.D. Performed By: #### A DDONUAPLUS, CUU #### [place] [address] [place] Glucose Ql (U) Normal Normal Normal [facility] Comment on above: Order Comment: Name Collection Type:: Voided Performed By: #### A DDONUAPLUS, CUU #### [place] [id number] [place] Hyaline Casts,Urine 50-100 High 0-8 [facility] Comment on above: Order Comment: Name Collection Type:: Voided Performed By: #### A DDONUAPLUS, CUU #### [place] [address] [place] Mucus,Urine Rare Normal [facility] Comment on above: Order Comment: Name Collection Type:: Voided Performed By: #### A DDONUAPLUS, CUU #### [place] [address] [place] Nitrite,Urine Negative Normal Negative [facility] Comment on above: Order Comment: Name Collection Type:: Voided Performed By: #### A DDONUAPLUS, CUU #### [address] Occult Blood,Urine Negative Normal Negative [facility] Comment on above: Order Comment: Name Collection Type:: Voided Result Comment: PERF ORMED BY: [place] [address] PATHOLOGIST ONLINE MEDIA DIRECTOR JOEY ANAND M.D. Performed By: #### A DDONUAPLUS, CUU #### [address] Protein,Urine Negative Normal Negative [facility] Comment on above: Order Comment: Name Collection Type:: Voided Performed By: #### A DDONUAPLUS, CUU #### [address] RBC,Urine 1-2 Normal 0-4 [facility] Comment on above: Order Comment: Name Collection Type:: Voided Performed By: #### A DDONUAPLUS, CUU #### [place] [address] [place] Specificy [place],Urine 1.015 Normal 1.001-1.030 [facility] Comment on above: Order Comment: Name Collection Type:: Voided Performed By: #### A DDONUAPLUS, CUU #### [address] Squamous Epithelial Cell,Urine 10-19 High 0-2 [facility] Comment on above: Order Comment: Name Collection Type:: Voided Performed By: #### A DDONUAPLUS, CUU #### [address] [place] [address] [place] Urobilinogen,Urine Normal Normal Normal [facility] Comment on above: Order Comment: Name Collection Type:: Voided Performed By: #### A DDONUAPLUS, CUU #### [facility] [address] [place] [address] [place] WBC,Urine 5-9 High 0-4 [facility] Comment on above: Order Comment: Name Collection Type:: Voided Performed By: #### A DDONUAPLUS, CUU #### [facility] [address] Epithelial cells.squamous [# /area] in Urine sediment by Automated countOrdered By: Henry Burns on 05-05-2024 Epithelial cells.squamous Auto (Urine sed) [#/Area] 10-19 [HPF] High 0-2 [facility] Erythrocytes [#/area] in Uri ne sediment by Automated countOrdered By: Henry Burns on 05-05-2024 RBC Auto (Urine sed) [#/Area] 1-2 [HPF] 0-4 [facility] Glucose [Mass/volume] in Uri ne by Test stripOrdered By: Henry Burns on 05-05-2024 Glucose Test strip (U) [Mass/Vol] Normal mg/dL Normal [facility] Hemoglobin Test strip Ql (U) Ordered By: Henry Burns on 05-05-2024 Hemoglobin Ql (U) Negative Negative [facility] Hyaline casts [#/area] in Ur ine sediment by Automated countOrdered By: Henry Burns on 05-05-2024 Hyaline casts Auto (Urine sed) [#/Area] 50-100 [LPF] High 0-8 [facility] Ketones [Presence] in Urine by Test stripOrdered By: Henry Burns on 05-05-2024 Ketones Ql (U) Negative Normal Negative [facility] Comment on above: Order Comment: Name Collection Type:: Voided Performed By: #### A DDONUAPLUS, CUU #### [facility] [address] [place] [id number] [facility] Leukocyte esterase [Presence ] in Urine by Test stripOrdered By: Henry Burns on 05-05-2024 Leukocyte esterase Test strip Ql (U) 1+ High Negative [facility] Comment on above: Order Comment: Name Collection Type:: Voided Performed By: #### A FRAN, CUU #### [facility] [address] [place] [address] Leukocytes [#/area] in Urine sediment by Automated countOrdered By: Henry Burns on 05-05-2024 WBC Auto (Urine sed) [#/Area] 5-9 [HPF] High 0-4 [facility] Mucus [Presence] in Urine by AutomatedOrdered By: Henry Burns on 05-05-2024 Mucus Auto Ql (U) Rare [LPF] [facility] Nitrite Test strip Ql (U)Ord ered By: Henry Burns on 05-05-2024 Nitrite Ql (U) Negative Negative [facility] Protein Test strip (U) [Mass /Vol]Ordered By: Henry Burns on 05-05-2024 Protein (U) [Mass/Vol] Negative Negative [facility] Specific gravity Test strip (U) [Rel density]Ordered By: Henry Burns on 05-05-2024 Specific gravity (U) [Rel density] 1.015 1.001-1.030 [facility] Urine Cultureon 05-05-2024 Bacteria identified Cx Nom (U) 20,000 colonies/ml mixed bacterial skin contaminants 2 Days PERFORMED BY: [place] [address] PATHOLOGIST ONLINE MEDIA DIRECTOR JOEY ANAND M.D. Normal [facility] Comment on above: Performed By: #### A FRAN, CUU #### [facility] [address] [place] [address] Urine appearanceOrdered By: Henry Burns on 05-05-2024 Appearance (U) Cloudy Critically abnormal Clear [facility] Comment on above: Order Comment: Name Collection Type:: Voided Performed By: #### A FRAN, CUU #### [facility] [address] [place] [address] Urobilinogen Test strip (U) [Mass/Vol]Ordered By: Henry Burns on 05-05-2024 Urobilinogen (U) [Mass/Vol] Normal mg/dL Normal [facility] XR KUBon 05-05-2024 XR KUB [facility] [place] [address] [place] [address] XRay Report Signed Patient: Nilsa Xiong MR#: [id number] : 1945 Acct:[id number] Age/Sex: 78 / F ADM Date: 05/05/24 [facility] 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 COMPARISON: None. FINDINGS: Post cholecystectomy clips. Vascular calcifications. No suspicious urinary tract calcifications are noted. No free air. No bowel obstruction. Osseous structures demonstrate degenerative change. XR/XR KUB IMPRESSION: NO SUSPICIOUS URINARY TRACT CALCIFICATIONS. Impression dictated by: Moisés Campos Jr., DMaxineOMaxine05/05/2024 3:45 PM Dictation Location: [place] [address] Transcribed By: [facility] 05/05/24 1545 Dictated By: Moisés Campos Jr, DO 05/05/24 1544 Signed By: 05/05/24 1545 Normal [facility] Yeast.budding [Presence] in Urine by Computer assisted methodOrdered By: Henry Burns on 05-05-2024 Yeast.budding Computer assisted Ql (U) 1+ [HPF] High None Seen [facility] pH of Urine by Test stripOrd ered By: Henry Burns on 05-05-2024 pH (U) 5.0 [pH] Normal 5.0-9.0 [facility] Comment on above: Order Comment: Name Collection Type:: Voided Performed By: #### A DDJASENUACHADD CUU #### [place] [address] [place] HbA1c HPLC (Bld) [Mass fract ion]on 04-18-2024 HbA1c (Bld) [Mass fraction] 6.4 % [facility] Creatinine [Mass/volume] in UrineOrdered By: Paty Dyer on 12-26-2023 Creatinine (U) [Mass/Vol] 121.0 mg/dL [facility] Comment on above: No reference range e stablished MicroAlb Creat Ratio,Uon Creatinine, Urine (Random) 121.0 mg/dL Normal [facility] Comment on above: Result Comment: No r eference range established Performed By: #### U RMACRERAT #### [address] Microalbumin/Creatinine Ratio Not performed Normal 0.0-30.0 [facility] Comment on above: Result Comment: PERF ORMED BY: [place] [address] PATHOLOGIST ONLINE MEDIA DIRECTOR JOEY ANAND M.D. Performed By: #### U RMACRERAT #### [address] Microalbumin [Mass/volume] i n UrineOrdered By: Paty Dyer on 12-26-2023 Albumin DL <= 20 mg/L (U) [Mass/Vol] mg/dL Normal 0.0-1.8 [facility] Comment on above: Performed By: #### U RMACRERAT #### [facility] [address] [place] [address] [place] Urine microalbumin/creatinin e mass ratioOrdered By: Ptay Dyer on 12-26-2023 Albumin/Creatinine DL <= 20 mg/L (U) [Mass ratio] TNP [facility] Comment on above: Test not performed A1C with Estimated Average G luon 12-14-2023 Glucose [Mass/Vol] 126 mg/dL Normal [facility] Comment on above: Result Comment: PERF ORMED BY: [place] [address] PATHOLOGIST ONLINE MEDIA DIRECTOR JOEY ANAND M.D. Performed By: #### A 1C WTH eA, CBCNO, CMP, TSH3 wRFLX #### [facility] [address] [place] [address] [place] Alanine aminotransferase [En zymatic activity/volume] in Serum or PlasmaOrdered By: Paty Dyer on 12-14-2023 ALT [Catalytic activity/Vol] 16 U/L Normal 7-52 [facility] Comment on above: Order Comment: NONFA STING. JKW Performed By: #### A 1C [facility] Jose Daniel, CBCNO, CMP, TSH3 wRFLX #### [facility] [address] [place] [address] [place] Albumin [Mass/volume] in Ser um or Plasma by Bromocresol green (BCG) dye binding methoOrdered By: Paty Dyer on 12-14-2023 Albumin BCG dye [Mass/Vol] 4.8 g/dL 3.5-5.7 [facility] Alkaline phosphatase [Enzyma tic activity/volume] in Serum or PlasmaOrdered By: Paty Dyer on 12-14-2023 ALP [Catalytic activity/Vol] 52 U/L Normal 34-104 [facility] Comment on above: Order Comment: NONFA STING. JKW Performed By: #### A 1C [facility] Jose Daniel, CBCNO, CMP, TSH3 wRFLX #### [place] [address] [place] Aspartate aminotransferase [ Enzymatic activity/volume] in Serum or PlasmaOrdered By: Paty Dyer on 12-14-2023 AST [Catalytic activity/Vol] 23 U/L Normal 13-39 [facility] Comment on above: Order Comment: NONFA STING. JKW Performed By: #### A 1C [facility] Jose Daniel, CBCNO, CMP, TSH3 wRFLX #### [facility] [address] [place] [address] [place] Bilirubin.total [Mass/volume ] in Serum or PlasmaOrdered By: Paty Dyer on 12-14-2023 Bilirubin [Mass/Vol] 0.6 mg/dL Normal 0.3-1.0 [facility] Comment on above: Order Comment: NONFA STING. JKW Performed By: #### A 1C [facility] Jose Daniel, CBCNO, CMP, TSH3 wRFLX #### [facility] [address] Calcium [Mass/volume] in Ser um or PlasmaOrdered By: Paty Dyer on 12-14-2023 Calcium [Mass/Vol] 10.0 mg/dL Normal 8.6-10.3 [facility] Comment on above: Order Comment: NONFA STING. JKW Performed By: #### A 1C WT eA, CBCNO, CMP, TSH3 wRFLX #### [facility] [address] Carbon dioxide, total [Moles /volume] in Serum or PlasmaOrdered By: Paty Dyer on 12-14-2023 CO2 [Moles/Vol] 25.3 mmol/L Normal 21.0-31.0 [facility] Comment on above: Order Comment: NONFA STING. JKW Performed By: #### A 1C [facility] eA, CBCNO, CMP, TSH3 wRFLX #### [facility] [address] [place] [address] [place] Chloride [Moles/volume] in S areli or PlasmaOrdered By: Paty Dyer on 12-14-2023 Chloride [Moles/Vol] 102 mmol/L Normal 98-107 [facility] Comment on above: Order Comment: NONFA STING. JKW Performed By: #### A 1C [facility] eA, CBCNO, CMP, TSH3 wRFLX #### [facility] [address] Comprehensive Metabolic Pane chaitanya 12-14-2023 Albumin [Mass/Vol] 4.8 g/dL Normal 3.5-5.7 [facility] Comment on above: Order Comment: NONFA STING. JKW Performed By: #### A 1C [facility] eA, CBCNO, CMP, TSH3 wRFLX #### [facility] [address] [place] [address] [place] GFR/1.73 sq M.predicted MDRD (S/P/Bld) [Vol rate/Area] 36.692 mL/min/{1.73_m2} Normal [facility] Comment on above: Order Comment: NONFA STING. JKW Performed By: #### A 1C [facility] eA, CBCNO, CMP, TSH3 wRFLX #### [facility] [address] [place] [address] [place] Creatinine [Mass/volume] in Serum or PlasmaOrdered By: Paty Dyer on 12-14-2023 Creatinine [Mass/Vol] 1.45 mg/dL High 0.60-1.20 [facility] Comment on above: Order Comment: NONFA STING. JKW Performed By: #### A 1C [facility] eA, CBCNO, CMP, TSH3 wRFLX #### [facility] [address] Erythrocyte distribution wid th [Ratio] by Automated countOrdered By: Paty Dyer on 12-14-2023 Erythrocyte distribution width (RBC) [Ratio] 12.2 % Normal 11.9-15.3 [facility] Comment on above: Performed By: #### A 1C [facility] eA, CBCNO, CMP, TSH3 wRFLX #### [facility] [address] Erythrocytes [#/volume] in B lood by Automated countOrdered By: Paty Dyer on 12-14-2023 RBC (Bld) [#/Vol] 3.80 10*6/uL Normal 3.60-5.00 [facility] Comment on above: Performed By: #### A 1C [facility] eA, CBCNO, CMP, TSH3 wRFLX #### [facility] [address] [place] [address] [place] Glucose [Mass/volume] in Ser um or PlasmaOrdered By: Paty Dyer on 12-14-2023 Glucose [Mass/Vol] 177 mg/dL High 70-100 [facility] Comment on above: ADA recommended refe rence rangeRandom Glucose Reference Range is dependent on time and content of last meal. Glucose of more than 200 mg/dL in a nonstressed, ambulatory subject supports the diagnosis of Diabetes Mellitus. Order Comment: NONFA STING. JKW Result Comment: Milfay om Glucose Reference Range is dependent on time and content of last meal. Glucose of more than 200 mg/dL in a nonstressed, ambulatory subject supports the diagnosis of Diabetes Mellitus. ADA recommended reference range Performed By: #### A 1C WTPurnima Sky, CBCMARYELLEN, CMP, TSH3 wRFLX #### [address] Glucose mean value [Mass/vol ume] in Blood Estimated from glycated hemoglobinOrdered By: Paty Dyer on 12-14-2023 Average glucose Estimated from glycated hemoglobin (Bld) [Mass/Vol] 126 mg/dL [facility] Hematocrit [Volume Fraction] of Blood by Automated countOrdered By: Paty Dyer on 12-14-2023 Hematocrit (Bld) [Volume fraction] 37.3 % Normal 34.0-46.4 [facility] Comment on above: Performed By: #### A 1C [facility] Jose Daniel, CBCMARYELLEN, CMP, TSH3 wRFLX #### [address] Hemoglobin A1c percentageOrd ered By: Paty Dyer on 12-14-2023 HbA1c (Bld) [Mass fraction] 6.0 % High 4.3-5.6 [facility] Comment on above: Increased risk for d iabetes: 5.7 - 6.4diabetes: >6.4glycemic control for adults with diabetes: <7.0 Result Comment: Incr eased risk for diabetes: 5.7 - 6.4 diabetes: >6.4 glycemic control for adults with diabetes: <7.0 Performed By: #### A 1C [facility] Jose Daniel, CBCNO, CMP, TSH3 wRFLX #### [address] Hemoglobin [Mass/volume] in BloodOrdered By: Paty Dyer on 12-14-2023 Hemoglobin (Bld) [Mass/Vol] 12.5 g/dL Normal 11.8-15.4 [facility] Comment on above: Performed By: #### A 1C [facility] Jose Daniel, CBCNO, CMP, TSH3 wRFLX #### [address] Hemogram CBC Without Diffon 12-14-2023 Mean Corpuscular HGB Conc 33.7 g/dL Normal 32.0-35.0 [facility] Comment on above: Performed By: #### A 1C [facility] Jose Daniel, CBCMARYELLEN, CMP, TSH3 wRFLX #### [facility] [address] [place] [address] WBC (Bld) [#/Vol] 9.1 10*3/uL Normal 3.8-11.6 [facility] Comment on above: Performed By: #### A 1C [facility] Jose Daniel, CBCMARYELLEN, CMP, TSH3 wRFLX #### [facility] [address] [place] [address] Leukocytes [#/volume] correc rosmery for nucleated erythrocytes in Blood by Automated counOrdered By: Paty Dyer on 12-14-2023 WBC corrected for nucl RBC Auto (Bld) [#/Vol] 9.1 10*3/uL 3.8-11.6 [facility] MCH [Entitic mass] by Automa rosmery countOrdered By: Paty Dyer on 12-14-2023 MCH (RBC) [Entitic mass] 33.0 pg Normal 24.7-34.3 [facility] Comment on above: Performed By: #### A 1C [facility] Jose Daniel, CBCMARYELLEN, CMP, TSH3 wRFLX #### [facility] [address] [place] [address] MCHC Auto (RBC) [Mass/Vol]Or dered By: Paty Dyer on 12-14-2023 MCHC (RBC) [Mass/Vol] 33.7 g/dL 32.0-35.0 [facility] MCV [Entitic volume] by Auto mated countOrdered By: Paty Dyer on 12-14-2023 MCV (RBC) [Entitic vol] 98.1 fL Normal 80-100 [facility] Comment on above: Performed By: #### A 1C [facility] Jose Daniel, CBCMARYELLEN, CMP, TSH3 wRFLX #### [address] No Panel InformationOrdered By: Paty Dyer on 12-14-2023 Estimated GFR (CKD-EPI) 36.692 mL/Min [facility] Creatinine Clearance (Chem N/A [facility] Platelet mean volume [Entiti c volume] in Blood by Automated countOrdered By: Paty Dyer on 12-14-2023 Platelet mean volume (Bld) [Entitic vol] 8.7 fL Normal 6.3-10.7 [facility] Comment on above: Result Comment: PERF ORMED BY: [place] [address] PATHOLOGIST ONLINE MEDIA DIRECTOR JOEY ANAND M.D. Performed By: #### A 1C [facility] eA, CBCNO, CMP, TSH3 wRFLX #### [facility] [address] [place] [address] [place] Platelets [#/volume] in Bloo d by Automated countOrdered By: Paty Dyer on 12-14-2023 Platelets (Bld) [#/Vol] 290 10*3/uL Normal 150-450 [facility] Comment on above: Performed By: #### A 1C [facility] eA, CBCNO, CMP, TSH3 wRFLX #### [facility] [address] [place] [address] [place] Potassium [Moles/volume] in Serum or PlasmaOrdered By: Paty Dyer on 12-14-2023 Potassium [Moles/Vol] 4.3 mmol/L Normal 3.5-5.1 [facility] Comment on above: Order Comment: NONFA STING. JKW Performed By: #### A 1C WT eA, CBCNO, CMP, TSH3 wRFLX #### [facility] [address] [place] [id number] [place] Protein [Mass/volume] in Ser um or PlasmaOrdered By: Paty Dyer on 12-14-2023 Protein [Mass/Vol] 7.3 g/dL Normal 6.4-8.9 [facility] Comment on above: Order Comment: NONFA STING. JKW Performed By: #### A 1C [facility] eA, CBCNO, CMP, TSH3 wRFLX #### [facility] [address] [place], [place] [id number] [place] Serum globulin measurement b y calculation (mass/volume)Ordered By: Paty Dyer on 12-14-2023 Globulin (S) [Mass/Vol] 2.5 g/dL Normal [facility] Comment on above: Order Comment: NONFA STING. JKW Performed By: #### A 1C [facility] Jose Daniel, CBCNO, CMP, TSH3 wRFLX #### [facility] [address] Serum or plasma albumin/glob ulin mass ratioOrdered By: Paty Dyer on 12-14-2023 Albumin/Globulin [Mass ratio] 1.9 {ratio} Normal [facility] Comment on above: Order Comment: NONFA STING. JKW Performed By: #### A 1C [facility] Jose Daniel, CBCMARYELLEN, CMP, TSH3 wRFLX #### [address] Serum or plasma anion gap de terminationOrdered By: Paty Dyer on 12-14-2023 Anion gap [Moles/Vol] 16.0 mmol/L High 6.0-15.0 [facility] Comment on above: Order Comment: NONFA STING. JKW Performed By: #### A 1C [facility] Jose Daniel, CBCMARYELLEN, CMP, TSH3 wRFLX #### [facility] [address] [place] [address] Sodium [Moles/volume] in Ser um or PlasmaOrdered By: Paty Dyer on 12-14-2023 Sodium [Moles/Vol] 139 mmol/L Normal 136-145 [facility] Comment on above: Order Comment: NONFA STING. JKW Performed By: #### A 1C [facility] Jose Daniel, CBCMARYELLEN, CMP, TSH3 wRFLX #### [facility] [address] Thyroid Stim Hormone w/Rflxo n 12-14-2023 Thyroid Stim Hormone w/Rflx 0.85 u[iU]/mL Normal 0.45-5.33 [facility] Comment on above: Order Comment: NONFA STING. JKW Result Comment: PERF ORMED BY: [place] [address] PATHOLOGIST ONLINE MEDIA DIRECTOR JOEY ANAND M.D. Performed By: #### A 1C [facility] eA, CBCNO, CMP, TSH3 wRFLX #### [address] Thyrotropin [Units/volume] i n Serum or PlasmaOrdered By: Paty Dyer on 12-14-2023 TSH Qn 0.85 m[IU]/L 0.45-5.33 [facility] Urea nitrogen [Mass/volume] in Serum or PlasmaOrdered By: Paty Dyer on 12-14-2023 Urea nitrogen [Mass/Vol] 21 mg/dL Normal 7-25 [facility] Comment on above: Order Comment: NONFA STING. JKW Performed By: #### A 1C [facility] eA, CBCNO, CMP, TSH3 wRFLX #### [address] A1C HEMOGLOBINon 08-14-2023 HbA1c (Bld) [Mass fraction] 6.2 % [employer] Other HbA1c (Bld) [Mass fraction]o n 08-14-2023 A1C HEMOGLOBIN [email or web address] Other MG MAMM SCREEN 3D KARSTEN CADon 02-06-2023 MG MAMM SCREEN 3D KARSTEN CAD Patient: NILSA XIONG Exam Date: 02/06/2023 : 1945 Gender:F Ordering : DR. MARIN RASHID D.O. Admission #: [id number] Family : Order #: [id number] CLICK HERE TO VIEW EXAM RADIOLOGY REPORT PROCEDURE: MAMMOGRAM SCREENING 3D BILATERAL CAD COMPARISON: MG MAMM SCREEN 3D KARSTEN CAD, 01/31/2021. MG MAMM SCREEN 3D KARSTEN CAD, 02/02/2022. INDICATIONS: Screening mammography Calculator Name NCI Breast Cancer Risk Assessment Tool 5 Year Breast Cancer Risk 1.80% Lifetime Breast Cancer Risk 3.30% Personal Breast Cancer No Personal Ovarian Cancer No Treatments None Family Cancers Aunt-maternal with breast cancer at age 83; Mother with pancreatic cancer at age 84. LOCATION: [facility] BREAST COMPOSITION: Scattered areas fibroglandular density. FINDINGS: DIAGNOSTIC CATEGORY 2--BENIGN FINDING. NO CHANGE FROM COMPARISON. Scattered benign-appearing nodules are present. Scattered benign-appearing calcifications are present. Scattered benign-appearing lymph nodes are present. RIGHT BREAST: No significant suspicious finding. LEFT BREAST: No significant suspicious finding. RECOMMENDATIONS: ROUTINE MAMMOGRAM AND CLINICAL EVALUATION IN 12 MONTHS. PLEASE NOTE: A NORMAL MAMMOGRAM DOES NOT EXCLUDE THE POSSIBILITY OF BREAST CANCER. A CLINICALLY SUSPICIOUS PALPABLE LUMP SHOULD BE BIOPSIED. Dictated by: Gustavo Connell MD on 02/06/2023 at 12:59 Approved by: Gustavo Connell MD on 02/06/2023 at 13:00 Normal [facility] GLYCOHEMOGLOBIN A1Con 2022 ADA RECOMMENDATION SEE BELOW Normal [facility] Comment on above: Result Comment: ADA RECOMMENDED LIMIT 4.0 - 6.0 ADA THERAPEUTIC TARGET < 7.0 ACTION SUGGESTED > 7.0 Performed By: #### V ITAD, FT4 #### [facility] [address] [place] [address] Dr. Demarcus Leija Glucose [Mass/Vol] 137 mg/dL Normal [facility] Comment on above: Performed By: #### V ITAD, FT4 #### [facility] [address] [place] [address] Dr. Demarcus Leija HbA1c (Bld) [Mass fraction] 6.4 % Critically high 4.5-6.2 [facility] Comment on above: Performed By: #### V ITAD, FT4 #### [facility] [address] [place] [address] Dr. Demarcus Leija LIPID PROFILEon 11-10-2022 CHOL-HDL RATIO NORM SEE BELOW Normal [facility] Comment on above: Result Comment: 3.3 - 4.4 LOW RISK 4.4 - 7.1 AVERAGE RISK 7.1 - 11.0 MODERATE RISK >11.0 HIGH RISK Performed By: #### C MP, LIPID #### [facility] [address] [place] [address] Dr. Demarcus Leija Cholesterol [Mass/Vol] 140 mg/dL Normal <=200 Th [facility] Comment on above: Performed By: #### C MP, LIPID #### [facility] [address] [place] [address] Dr. Demarcus Leija Cholesterol in HDL [Mass/Vol] 53 mg/dL Normal 40-60 [facility] Comment on above: Performed By: #### C MP, LIPID #### [facility] [address] [address] [address] Demarcus Leija Cholesterol in LDL [Mass/Vol] 72.8 mg/dL Normal [facility] Comment on above: Performed By: #### C MP, LIPID #### [facility] [address] [place] [address] [address] Demarcus Leija Cholesterol.total/Jennifer sterol in HDL [Mass ratio] 2.6 {ratio} Normal [facility] Comment on above: Performed By: #### C MP, LIPID #### [facility] [address] [address] [address] Demarcus Leija HDL NORMAL > or = 60 mg/dl - LOW CARDIOVASCULAR RISK <40 mg/dl - HIGH CARDIOVASCULAR RISK Normal [facility] Comment on above: Performed By: #### C MP, LIPID #### [facility] [address] [address] [address] Demarcus Leija LDL CALC NORMAL SEE BELOW Normal [facility] Comment on above: Result Comment: <100 mg/dl OPTIMAL 100 - 129 mg/dl NEAR OR ABOVE OPTIMAL 130 - 159 mg/dl BORDERLINE HIGH 160 - 189 mg/dl HIGH >190 mg/dl VERY HIGH Performed By: #### C MP, LIPID #### [facility] [address] [address] [address] Demarcus Leija Triglyceride [Mass/Vol] 71 mg/dL Normal <=150 T [facility] Comment on above: Performed By: #### C MP, LIPID #### [facility] [address] [address] [address] Demarcus Leija VLDL CALC 14.2 mg/dL Normal [facility] Comment on above: Performed By: #### C MP, LIPID #### [facility] [address] [place] [address] [address] Demarcus Leija MICROALB CREAT RATIO RANDOMo n 11-10-2022 mALB 1.3 mg/L Normal <=30.0 [facility] Comment on above: Performed By: #### M CRR #### [facility] [address] [address] [address] Demarcus RAMEYB CR RATIO 12.1 mg/g Normal 0.0-29.9 [facility] Comment on above: Performed By: #### M CRR #### [facility] [address] [address] [address] Demarcus Leija MALB CR RATIO RANGE SEE BELOW Normal [facility] Comment on above: Result Comment: NO M ICROALBUMINURIA 0-29 MG/G CLINICAL MICROALBUMINURIA 30-300 MG/G MACROALBUMINURIA >300 MG/G Performed By: #### M CRR #### [facility] [address] [place] [address] Dr. Demarcus Leija URINE CREAT 107.52 mg/dL Normal 20.00-300.00 [facility] Comment on above: Performed By: #### M CRR #### [facility] [address] [place] [address] Dr. Demarcus Leija PROF 14(COMP METB)on 023 Albumin [Mass/Vol] 4.1 g/dL Normal 3.4-5.0 [facility] Comment on above: Performed By: #### V IGLESIA, FT4 #### [facility] [address] [place] [address] Dr. Demarcus Leija Albumin/Globulin [Mass ratio] 1.2 {ratio} Normal [facility] Comment on above: Performed By: #### V IGLESIA, FT4 #### [facility] [address] [place] [address] Dr. Demarcus Leija ALP [Catalytic activity/Vol] 75 U/L Normal 46-116 [facility] Comment on above: Performed By: #### V IGLESIA, FT4 #### [facility] [address] [place] [address] Dr. Demarcus Leija ALT [Catalytic activity/Vol] 24 U/L Normal 14-59 [facility] Comment on above: Performed By: #### V IGLESIA, FT4 #### [facility] [address] [place] [address] [address] Demarcus Leija Anion gap [Moles/Vol] 14.1 mmol/L Normal Th [facility] Comment on above: Performed By: #### V ITAD, FT4 #### [facility] [address] [place] [address] [address] Demarcus Leija AST [Catalytic activity/Vol] 22 U/L Normal 15-37 [facility] Comment on above: Performed By: #### V ITAD, FT4 #### [facility] [address] [place] [address] [address] Demarcus Leija Bilirubin [Mass/Vol] 0.5 mg/dL Normal 0.2-1.0 [facility] Comment on above: Performed By: #### V ITAD, FT4 #### [facility] [address] [place] [address] Dr. Demarcus Leija Calcium [Mass/Vol] 9.7 mg/dL Normal 8.5-10.1 [facility] Comment on above: Performed By: #### V ITAD, FT4 #### [facility] [address] [address] [address] Demarucs Leija Chloride [Moles/Vol] 101 mmol/L Normal 98-107 [facility] Comment on above: Performed By: #### V ITAD, FT4 #### [facility] [address] [address] [address] Demarcus Leija CO2 [Moles/Vol] 27.3 mmol/L Normal 21.0-32.0 [facility] Comment on above: Performed By: #### V ITAD, FT4 #### [facility] [address] [address] [address] Demarcus Leija Creatinine [Mass/Vol] 1.08 mg/dL Critically high 0.55-1.02 [facility] Comment on above: Performed By: #### V ITAD, FT4 #### [facility] [address] [address] [address] Demarcus Leija EGFR-AF CHADIAN 59 mL/min/1.73m2 Critically low >=60 [facility] Comment on above: Performed By: #### V ITAD, FT4 #### [facility] [address] [address] [address] Demarcus Leija EGFR-NON AF CHADIAN 49 mL/min/1.73m2 Critically low >=60 [facility] Comment on above: Performed By: #### V ITAD, FT4 #### [facility] [address] [place] [address] Dr. Demarcus Leija Globulin (S) [Mass/Vol] 3.4 g/dL Normal [facility] Comment on above: Performed By: #### V ITAD, FT4 #### [facility] [address] [place] [address] Dr. Demarcus Leija Glucose [Mass/Vol] 189 mg/dL Critically high 74-106 [facility] Comment on above: Performed By: #### V ITAD, FT4 #### [facility] [address] [place] [address] Dr. Demarcus Leija Potassium [Moles/Vol] 4.4 mmol/L Normal 3.5-5.1 [facility] Comment on above: Performed By: #### V ITAD, FT4 #### [facility] [address] [place] [address] Dr. Demarcus Leija Protein [Mass/Vol] 7.5 g/dL Normal 6.4-8.2 [facility] Comment on above: Performed By: #### V ITAD, FT4 #### [facility] [address] [place] [address] Dr. Demarcus Leija Sodium [Moles/Vol] 138 mmol/L Normal 136-145 [facility] Comment on above: Performed By: #### V ITAD, FT4 #### [facility] [address] [place] [address] Dr. Demarcus Leija Urea nitrogen [Mass/Vol] 18.0 mg/dL Normal 7.0-18.0 [facility] Comment on above: Performed By: #### V ITAD, FT4 #### [facility] [address] [place] [address] Dr. Demarcus Leija Urea nitrogen/Creatinine [Mass ratio] 16.7 mg/mg Normal [facility] Comment on above: Performed By: #### V IGLESIA FT4 #### [facility] [address] [place] [address] Dr. Demarcus Leija PTH INTACTon 07-21-2022 PTH, Intact 14 pg/mL Critically low 15-65 [facility] Comment on above: Performed By: #### P THINT #### [facility] [address] [place] [address] Dr. Demarcus Leija AMYLASEon 07-20-2022 Amylase [Catalytic activity/Vol] 53 U/L Normal 25-115 [facility] Comment on above: Performed By: #### V MAURICIO PAREKH4 #### [facility] [address] [place] [address] Dr. Demarcus Leija CBC AUTO DIFFon 07-20-2022 BASO # 0.0 103/ul Normal 0.0-0.1 [facility] Comment on above: Performed By: #### C BC #### [facility] [address] [place] [address] Dr. Demarcus Leija Basophils/100 WBC (Bld) 0.7 % Normal 0.2-2.0 [facility] Comment on above: Performed By: #### C BC #### [facility] [address] [place] [address] Dr. Demarcus Leija EO # 0.1 103/ul Normal 0.0-0.7 [facility] Comment on above: Performed By: #### C BC #### [facility] [address] [place] [address] Dr. Demarcus Leija Eosinophils/100 WBC (Bld) 0.8 % Critically low 0.9-7.0 [facility] Comment on above: Performed By: #### C BC #### [facility] [address] [place] [address] Dr. Demarcus Leija Erythrocyte distribution width (RBC) [Ratio] 12.3 % Normal 11.0-15.0 [facility] Comment on above: Performed By: #### C BC #### [facility] [address] [place] [address] Dr. Demarcus Leija Hematocrit (Bld) [Volume fraction] 38.4 % Normal 36.0-48.0 [facility] Comment on above: Performed By: #### C BC #### [facility] [address] [place] [address] Dr. Demarcus Leija Hemoglobin (Bld) [Mass/Vol] 13.2 g/dL Normal 12.0-16.0 [facility] Comment on above: Performed By: #### C BC #### [facility] [address] [place] [address] Dr. Demarcus Leija IG # 0.01 10e3/ul Normal 0.00-0.03 [facility] Comment on above: Performed By: #### C BC #### [facility] [address] [place] [address] Dr. Demarcus Leija IG % 0.2 % Normal 0.0-0.5 [facility] Comment on above: Performed By: #### C BC #### [facility] [address] [place] [address] Dr. Demarcus Leija LYMPH # 2.1 103/ul Normal 1.2-3.8 [facility] Comment on above: Performed By: #### C BC #### [facility] [address] [place] [address] Dr. Demarcus Leija Lymphocytes/100 WBC (Bld) 36.0 % Normal 20.5-60.0 [facility] Comment on above: Performed By: #### C BC #### [facility] [address] [place] [address] Dr. Demarcus Leija MANUAL DIFF REQ NO Normal [facility] Comment on above: Performed By: #### C BC #### [facility] [address] [place] [address] Dr. Demarcus Leija MCH (RBC) [Entitic mass] 32.7 pg Normal 26.7-34.0 [facility] Comment on above: Performed By: #### C BC #### [facility] [address] [place] [address] Dr. Demarcus Leija MCHC (RBC) [Mass/Vol] 34.4 g/dL Normal 29.9-35.2 [facility] Comment on above: Performed By: #### C BC #### [facility] [address] [place] [address] Dr. Demarcus Leija MCV (RBC) [Entitic vol] 95.0 fL Normal 81.0-99.0 [facility] Comment on above: Performed By: #### C BC #### [facility] [address] [place] [address] Dr. Demarcus Leija MONO # 0.7 103/ul Normal 0.3-0.8 [facility] Comment on above: Performed By: #### C BC #### [facility] [address] [place] [address] Dr. Demarcus Leija Monocytes/100 WBC (Bld) 11.2 % Normal 1.7-12.0 [facility] Comment on above: Performed By: #### C BC #### [facility] [address] [place] [address] Dr. Demarcus Leija NEUT # 3.0 103/ul Normal 1.4-6.5 [facility] Comment on above: Performed By: #### C BC #### [facility] [address] [place] [address] Dr. Demarcus Leija Neutrophils/100 WBC (Bld) 51.1 % Normal 43.0-75.0 [facility] Comment on above: Performed By: #### C BC #### [facility] [address] [place] [address] Dr. Demarcus Leija Platelet mean volume (Bld) [Entitic vol] 10.3 fL Normal 9.5-13.5 [facility] Comment on above: Performed By: #### C BC #### [facility] [address] [place] [address] Dr. Demarcus Leija PLT 284 103/ul Normal 150-450 [facility] Comment on above: Performed By: #### C BC #### [facility] [address] [place] [address] Dr. Demarcus Leija RBC 4.04 106/ul Critically low 4.20-5.40 [facility] Comment on above: Performed By: #### C BC #### [facility] [address] [place] [address] Dr. Demarcus Leija WBC 5.9 103/ul Normal 4.0-11.0 [facility] Comment on above: Performed By: #### C BC #### [facility] [address] [place] [address] Dr. Demarcus Leija FREE T4on 07-20-2022 Free T4 [Mass/Vol] 1.43 ng/dL Normal 0.76-1.46 [facility] Comment on above: Performed By: #### V ITAD, FT4 #### [facility] [address] [place] [address] Dr. Demarcus Leija GLYCOHEMOGLOBIN A1Con 2021 ADA RECOMMENDATION SEE BELOW Normal [facility] Comment on above: Result Comment: ADA RECOMMENDED LIMIT 4.0 - 6.0 ADA THERAPEUTIC TARGET < 7.0 ACTION SUGGESTED > 7.0 Performed By: #### V ITAD, FT4 #### [facility] [address] [place] [address] Dr. Demarcus Leija Glucose [Mass/Vol] 114 mg/dL Normal [facility] Comment on above: Performed By: #### V ITAD, FT4 #### [facility] [address] [place] [address] Dr. Demarcus Leija HbA1c (Bld) [Mass fraction] 5.6 % Normal 4.5-6.2 [facility] Comment on above: Performed By: #### V ITAD, FT4 #### [facility] [address] [place] [address] Dr. Demarcus Leija LIPASEon 07-20-2022 Lipase [Catalytic activity/Vol] 109.0 U/L Normal 73.0-393.0 [facility] Comment on above: Performed By: #### V ITAD, FT4 #### [facility] [address] [place] [address] Dr. Demarcus Leija MAGNESIUMon 07-20-2022 Magnesium [Mass/Vol] 1.6 mg/dL Critically low 1.8-2.4 [facility] Comment on above: Performed By: #### V ITAD, FT4 #### [facility] [address] [address] [address] Demarcus Leija PHOSPHORUSon 07-20-2022 Phosphate [Mass/Vol] 4.5 mg/dL Normal 2.6-4.7 [facility] Comment on above: Performed By: #### V ITAD, FT4 #### [facility] [address] [place] [address] Dr. Demarcus Leija PROF CHEM 8 (BAS METB)on Anion gap [Moles/Vol] 14.0 mmol/L Normal [facility] Comment on above: Performed By: #### V ITAD, FT4 #### [facility] [address] [place] [address] Dr. Demarcus Leija Calcium [Mass/Vol] 9.9 mg/dL Normal 8.5-10.1 [facility] Comment on above: Performed By: #### V ITAD, FT4 #### [facility] [address] [address] [address] Demarcus Leija Chloride [Moles/Vol] 99 mmol/L Normal 98-107 [facility] Comment on above: Performed By: #### V ITAD, FT4 #### [facility] [address] [address] [address] Demarcus Leija CO2 [Moles/Vol] 26.5 mmol/L Normal 21.0-32.0 [facility] Comment on above: Performed By: #### V ITAD, FT4 #### [facility] [address] [address] [address] Demarcus Leija Creatinine [Mass/Vol] 1.06 mg/dL Critically high 0.55-1.02 [facility] Comment on above: Performed By: #### V ITAD, FT4 #### [facility] [address] [address] [address] Demarcus Leija EGFR-AF CHADIAN >60 Normal >=60 [facility] Comment on above: Performed By: #### V ITAD, FT4 #### [facility] [address] [place] [address] Dr. Demarcus Leija EGFR-NON AF CHADIAN 50 mL/min/1.73m2 Critically low >=60 [facility] Comment on above: Performed By: #### V ITAD, FT4 #### [facility] [address] [place] [address] Dr. Demarcus Leija Glucose [Mass/Vol] 128 mg/dL Critically high 74-106 [facility] Comment on above: Performed By: #### V ITAD, FT4 #### [facility] [address] [place] [address] Dr. Demarcus Leija Potassium [Moles/Vol] 4.5 mmol/L Normal 3.5-5.1 [facility] Comment on above: Performed By: #### V ITAD, FT4 #### [facility] [address] [place] [address] Dr. Demarcus Leija Sodium [Moles/Vol] 135 mmol/L Critically low 136-145 [facility] Comment on above: Performed By: #### V ITAD, FT4 #### [facility] [address] [place] [address] Dr. Demarcus Leija Urea nitrogen [Mass/Vol] 26.0 mg/dL Critically high 7.0-18.0 [facility] Comment on above: Performed By: #### V ITAD, FT4 #### [facility] [address] [place] [address] Dr. Demarcus Leija Urea nitrogen/Creatinine [Mass ratio] 24.5 mg/mg Normal [facility] Comment on above: Performed By: #### V ITAD, FT4 #### [facility] [address] [place] [address] Dr. Demarcus Leija TSHon 07-20-2022 TSH 0.748 uIU/mL Normal 0.358-3.740 [facility] Comment on above: Performed By: #### V ITAD, FT4 #### [facility] [address] [place] [address] Dr. Demarcus Leija URIC ACID SERUMon 07-20-2022 Urate [Mass/Vol] 4.9 mg/dL Normal 2.6-6.0 [facility] Comment on above: Performed By: #### V ITAD, FT4 #### [facility] [address] [address] [address] Demarcus Leija VITAMIN D 25 OHon 07-20-2022 VIT D 25-OH 67.4 ng/mL Normal [facility] Comment on above: Performed By: #### V ITAD, FT4 #### [facility] [address] [address] [address] Demarcus Leija VIT D RANGES SEE BELOW Normal [facility] Comment on above: Result Comment: <20 ng/mL Vit D deficient 20 - <30 ng/mL Vit D insufficient 30 - 100 ng/mL Vit D sufficient >100 ng/mL Potential Toxicity Performed By: #### V ITAD, FT4 #### [facility] [address] CSPINE WO CONon 2 CT CSPINE WO CON CT CERVICAL SPINE WITHOUT IV CONTRAST. INDICATION: Pain status post injury COMPARISON: There are no prior studies available for comparison. TECHNIQUE: CT of the cervical spine without contrast. Orthogonal sagittal and coronal multiplanar reformatted images were created. . FINDINGS: BONY ALIGNMENT: There is normal cervical lordosis. No spondylolisthesis. VERTEBRAL BODY: No acute fracture of the cervical spine. Mild to moderate multilevel degenerative spondylosis CENTRAL CANAL/NEURAL FORAMINA: There is severe C3-C4 and at least moderate C4-C5 central canal stenosis secondary to disc osteophyte complex.. There is moderate to severe bilateral C3-C4, severe left C4-C5 neural foraminal stenosis. SOFT TISSUE: No mass or inflammation. UPPER LUNGS: No acute findings. IMPRESSION: 1. No acute cervical spinal fracture. 2. Severe C3-C4 central canal stenosis. Electronically authenticated by: BECKY CLIFTON Date: 2022-07-15 14:42 Normal [facility] CT HEAD WO CONon 07-15-2022 CT HEAD WO CON CT HEAD WITHOUT CONTRAST. INDICATION: Pain status post fall COMPARISON: 03/26/2018 TECHNIQUE: Axial CT head images from the skull base to the vertex without IV contrast were acquired. Coronal and sagittal reformats were also obtained. FINDINGS: EXTRA-AXIAL SPACE: Age-appropriate ventricles. No acute extra-axial collection. No extra-axial mass. No midline shift. CEREBRUM: There are areas of periventricular and deep white matter low-attenuation, which is nonspecific but likely reflective of chronic microvascular ischemic disease.. No CT evidence of acute large territorial cortical infarct, hemorrhage or mass effect. CEREBELLUM: No focal abnormality. No CT evidence of acute infarct, hemorrhage or mass effect. BRAINSTEM: No focal abnormality. No CT evidence of acute infarct, hemorrhage or mass effect. EXTRACRANIAL STRUCTURES. The paranasal sinuses are clear. Mastoid air cells are clear. Orbits are unremarkable. No discrete pituitary mass. Intact calvarium. There is a left forehead scalp contusion. IMPRESSION: 1. No acute intracranial abnormality. 2. Left forehead scalp contusion. Electronically authenticated by: BECKY CLIFTON Date: 2022-07-15 14:36 Normal [facility] CT TSPINE WO CONon [address] [facility] CON CT THORACIC SPINE WITHOUT CONTRAST. HISTORY: UNSPECIFIED INJURY OF HEAD, INITIAL ENCOUNTER COMPARISON: None. TECHNIQUE: CT of the thoracic spine without contrast. Sagittal and coronal reformatted images created. FINDINGS: BONY ALIGNMENT: There is normal thoracic kyphosis. No spondylolisthesis. VERTEBRAL BODY: No acute fracture of the thoracic vertebral bodies. Mild multilevel degenerative spondylosis. CENTRAL CANAL/NEURAL FORAMINA: No high-grade central canal or neuroforaminal stenosis. SOFT TISSUE: No mass or inflammation. VISUALIZED THORAX: No acute findings. IMPRESSION: No acute osseous abnormality of the thoracic spine.. Electronically authenticated by: BECKY CLIFTON Date: 2022-07-15 14:44 Normal [facility] XR SHOULDER KARSTEN 2V or >on XR SHOULDER KARSTEN 2V or > X-RAY OF THE bilateral shoulder HISTORY: C/O: a pain COMPARISON: There are no previous studies available for comparison. TECHNIQUE: 3 views of the bilateral shoulders. FINDINGS: BONE DENSITY: Normal. JOINTS: No acute abnormality. Postoperative changes of the left clavicle. FRACTURE: No acute fracture. DISLOCATION: None. SOFT TISSUES: No radiopaque foreign body. IMPRESSION: No acute osseous or joint abnormality. Electronically authenticated by: BECKY CLIFTON Date: 2022-07-15 14:47 Normal [facility] COMPREHENSIVE METABOLIC PANE Chaitanya 01-26-2022 Albumin [Mass/Vol] 4.4 g/dL Normal 3.6-5.1 [facility] Comment on above: Performed By: #### 1 0231, 7600, 496 #### [facility] of [address], [address] [place] [address] Counter Roller: Keven Shukla MD Albumin/Globulin [Mass ratio] 1.9 {ratio} Normal 1.0-2.5 [facility] Comment on above: Performed By: #### 1 0231, 7600, 496 #### [facility] of [address] [address] Counter Roller: Keven Shukla MD ALP [Catalytic activity/Vol] 50 U/L Normal 37-153 [facility] Comment on above: Performed By: #### 1 0231, 7600, 496 #### [facility] of [place] [address] Counter Roller: Keven Shukla MD ALT [Catalytic activity/Vol] 20 U/L Normal 6-29 [facility] Comment on above: Performed By: #### 1 0231, 7600, 496 #### [facility] of [place] [address] Counter Roller: Kveen Shukla MD AST [Catalytic activity/Vol] 21 U/L Normal 10-35 [facility] Comment on above: Performed By: #### 1 0231, 7600, 496 #### [facility] of [place] [address] Counter Roller: Keven Shukla MD Bilirubin [Mass/Vol] 0.5 mg/dL Normal 0.2-1.2 [facility] Comment on above: Performed By: #### 1 0231, 7600, 496 #### [facility] [place] [address] Counter Roller: Keven Shukla MD Calcium [Mass/Vol] 10.3 mg/dL Normal 8.6-10.4 [facility] Comment on above: Performed By: #### 1 023, 0, 496 #### [facility] [address], [address] [place] [address] Counter Roller: Keven Shukla MD Chloride [Moles/Vol] 106 mmol/L Normal 98-110 [facility] Comment on above: Performed By: #### 1 023, 0, 496 #### [facility] [address], [address] [place] [address] Counter Roller: Keven Shukla MD CO2 [Moles/Vol] 24 mmol/L Normal 20-32 [facility] Comment on above: Performed By: #### 1 023, 7599, 496 #### [facility] [address], [address] [place] [address] Counter Roller: Keven Shukla MD Creatinine [Mass/Vol] 1.06 mg/dL High 0.60-0.[address] [facility] Comment on above: Result Comment: For patients >49 years of age, the reference limit for Creatinine is approximately 13% higher for people identified as -Paragu[place]. Performed By: #### 1 230, 7599, 496 #### [facility] [address], [address] [place] [address] Counter Roller: Keven Shukla MD eGFR NON-AFR. CHADIAN 51 mL/min/1.73m2 Low > OR = 60 [facility] Comment on above: Performed By: #### 1 230, 7599, 496 #### [facility] [place] [address] Counter Roller: Keven Shukla MD GFR/1.73 sq M.predicted among blacks MDRD (S/P/Bld) [Vol rate/Area] 59 mL/min/{1.73_m2} Low > OR = 60 [facility] Comment on above: Performed By: #### 1 023, 7599, 496 #### [facility] of [address], [address] [place] [address] Counter Roller: Keven Shukla MD Globulin (S) [Mass/Vol] 2.3 g/dL Normal 1.9-3.7 [facility] Comment on above: Performed By: #### 1 0231, 7600, 496 #### [facility] [address], [address] [place] [address] Counter Roller: Keven Shukla MD Glucose [Mass/Vol] 56 mg/dL Low 65-99 [facility] Comment on above: Result Comment: Fasting reference interval Performed By: #### 1 0231, 7600, 496 #### [facility] of [address], [address] [place] [address] Counter Roller: Keven Shukal MD Potassium [Moles/Vol] 4.4 mmol/L Normal 3.5-5.[address] [facility] Comment on above: Performed By: #### 1 0231, 7600, 496 #### [facility] [address], [address] [place] [address] Counter Roller: Keven Shukla MD Protein [Mass/Vol] 6.7 g/dL Normal 6.1-8.1 [facility] Comment on above: Performed By: #### 1 0231, 7600, 496 #### [facility] of [address], [address] [place] [address] Counter Roller: Keven Shukla MD Sodium [Moles/Vol] 142 mmol/L Normal 135-146 [facility] Comment on above: Performed By: #### 1 0231, 7600, 496 #### [facility] [address], [address] [place] [address] Counter Roller: Keven Shukla MD Urea nitrogen [Mass/Vol] 25 mg/dL Normal 7-25 [facility] Comment on above: Performed By: #### 1 0231, 7600, 496 #### [facility] of [place] [address] Counter Roller: Keven Shukla MD Urea nitrogen/Creatinine [Mass ratio] 24 mg/mg High 03-01 [facility] Comment on above: Performed By: #### 1 0231, 7600, 496 #### [facility] [address], [address] [place] [address] Counter Roller: Keven Shukla MD HEMOGLOBIN A1con 01-26-2022 HEMOGLOBIN A1c 5.7 % of total Hgb High <5.7 [facility] Comment on above: Result Comment: For someone without known diabetes, a hemoglobin A1c value between 5.7% and 6.4% is consistent with prediabetes and should be confirmed with a follow-up test. For someone with known diabetes, a value <7% indicates that their diabetes is well controlled. A1c targets should be individualized based on duration of diabetes, age, comorbid conditions, and other considerations. This assay result is consistent with an increased risk of diabetes. Currently, no consensus exists regarding use of hemoglobin A1c for diagnosis of diabetes for children. Performed By: #### 7 18, 6399, 622, 86636, 73520, 905, 20339, 79451 #### [facility] [address], [address] [place] [address] Counter Roller: Keven Shukla MD LIPID PANEL, STANDARDon 01-08 Cholesterol [Mass/Vol] 109 mg/dL Normal <200 [facility] Comment on above: Order Comment: FASTI NG:YES FASTING: YES Performed By: #### 1 0231, 7600, 496 #### [facility] [address], [address] [place] [address] Counter Roller: Keven Shukla MD Cholesterol in HDL [Mass/Vol] 36 mg/dL Low > OR = 50 [facility] Comment on above: Order Comment: FASTI NG:YES FASTING: YES Performed By: #### 1 0231, 7600, 496 #### [facility] [address], [address] [place] [address] Counter Roller: Keven Shukla MD Cholesterol in LDL [Mass/Vol] 55 mg/dL Normal [facility] Comment on above: Order Comment: FASTI NG:YES FASTING: YES Result Comment: Refe rence range: <100 Desirable range <100 mg/dL for primary prevention; <70 mg/dL for patients with CHD or diabetic patients with > or = 2 CHD risk factors. LDL-C is now calculated using the Jeramie calculation, which is a validated novel method providing better accuracy than the Friedewald equation in the estimation of LDL-C. Srinivas SS et al. TEJ. 2013;310(19): 1556-5040 (http://education.[employer]/faq/AHC101) Performed By: #### 1 0231, 7600, 496 #### [facility] [address], [address] [place] [address] Counter Roller: Keven Shukla MD Cholesterol.total/Jennifer sterol in HDL [Mass ratio] 3.0 {ratio} Normal <5.0 [facility] Comment on above: Order Comment: FASTI NG:YES FASTING: YES Performed By: #### 1 0231, 7600, 496 #### [facility] [address], [address] [place] [address] Counter Roller: Keven Shukla MD NON HDL CHOLESTEROL 73 mg/dL (calc) Normal <130 [facility] Comment on above: Order Comment: FASTI NG:YES FASTING: YES Result Comment: For patients with diabetes plus 1 major ASCVD risk factor, treating to a non-HDL-C goal of <100 mg/dL (LDL-C of <70 mg/dL) is considered a therapeutic option. Performed By: #### 1 0231, 7600, 496 #### [facility] [address], [address] [place] [address] Counter Roller: Keven Shukla MD Triglyceride [Mass/Vol] 94 mg/dL Normal <150 [facility] Comment on above: Order Comment: FASTI NG:YES FASTING: YES Performed By: #### 1 0231, 7600, 496 #### [facility] [address], [address] [place] [address] Counter Roller: Keven Shukla MD BASIC METABOLIC PANELon 11- Calcium [Mass/Vol] 10.2 mg/dL Normal 8.6-10.4 [facility] Comment on above: Performed By: #### 7 18, 6399, 622, 33090, 15917, 905, 76226, 46950 #### [facility] [address], [address] [place] [address] Counter Roller: Keven Shukla MD Chloride [Moles/Vol] 102 mmol/L Normal 98-110 [facility] Comment on above: Performed By: #### 7 18, 6399, 622, 38317, 36249, 905, 84449, 05587 #### [facility] [address], [address] [place] [address] Counter Roller: Keven Shukla MD CO2 [Moles/Vol] 27 mmol/L Normal 20-32 [facility] Comment on above: Performed By: #### 7 18, 6399, 622, 26167, 28848, 905, 13945, 77089 #### [facility] [address], [address] [place] [address] Counter Roller: Keven Shukla MD Creatinine [Mass/Vol] 1.02 mg/dL High 0.60-0.[address] [facility] Comment on above: Result Comment: For patients >49 years of age, the reference limit for Creatinine is approximately 13% higher for people identified as -[place]agu[place]. Performed By: #### 7 18, 6399, 622, 94622, 05631, 905, 25474, 58164 #### [facility] [address], [address] [place] [address] Counter Roller: Keven Shukla MD eGFR NON-AFR. CHADIAN 53 mL/min/1.73m2 Low > OR = 60 [facility] Comment on above: Performed By: #### 7 18, 6399, 622, 83173, 97045, 905, 11677, 76995 #### [facility] [address], [address] [place] [address] Counter Roller: Keven Shukla MD GFR/1.73 sq M.predicted among blacks MDRD (S/P/Bld) [Vol rate/Area] 61 mL/min/{1.73_m2} Normal > OR = 60 [facility] Comment on above: Performed By: #### 7 18, 6399, 622, 49686, 46916, 905, 38599, 58459 #### [facility] [place] [address] Counter Roller: Keven Shukla MD Glucose [Mass/Vol] 108 mg/dL High 65-99 [facility] Comment on above: Result Comment: Fasting reference interval For someone without known diabetes, a glucose value between 100 and 125 mg/dL is consistent with prediabetes and should be confirmed with a follow-up test. Performed By: #### 7 18, 6399, 622, 90483, 49625, 905, 05069, 49568 #### [facility] [place] [address] Counter Roller: Keven Shukla MD Potassium [Moles/Vol] 4.6 mmol/L Normal 3.5-5.[address] [facility] [address] [facility] Comment on above: Performed By: #### 7 18, 6399, 622, 90577, 28632, 905, 20542, 03749 #### [facility] [place] [address] Counter Roller: Keven Shukla MD Sodium [Moles/Vol] 139 mmol/L Normal 135-146 [facility] Comment on above: Performed By: #### 7 18, 6399, 622, 07073, 75120, 905, 97250, 23151 #### [facility] [place] [address] Counter Roller: Keven Shukla MD Urea nitrogen [Mass/Vol] 16 mg/dL Normal 7-25 [facility] Comment on above: Performed By: #### 7 18, 6399, 622, 10735, 25987, 905, 17100, 69690 #### [facility] [address] [place] [address] Counter Roller: Keven Shukla MD Urea nitrogen/Creatinine [Mass ratio] 16 mg/mg Normal 6-22 [facility] Comment on above: Performed By: #### 7 18, 6399, 622, 80626, 41706, 905, 58841, 29818 #### [facility] of [address], [address] [place] [address] Counter Roller: Keven Shukla MD CBC (INCLUDES DIFF/PLT)on Basophils (Bld) [#/Vol] 0.038 10*3/uL Normal 0-200 [facility] Comment on above: Performed By: #### 7 18, 6399, 622, 20123, 53245, 905, 53759, 09466 #### [facility] of [address], [address] [place] [address] Counter Roller: Keven Shukla MD Basophils/100 WBC (Bld) 0.5 % Normal [facility] Comment on above: Performed By: #### 7 18, 6399, 622, 74748, 79784, 905, 78589, 84354 #### [facility] of [place] [address] Counter Roller: Keven Shukla MD Eosinophils (Bld) [#/Vol] 0.106 10*3/uL Normal 15-500 [facility] Comment on above: Performed By: #### 7 18, 6399, 622, 02173, 79476, 905, 98450, 23002 #### [facility] of [address], [address] [place] [address] Counter Roller: Keven Shukla MD Eosinophils/100 WBC (Bld) 1.4 % Normal [facility] Comment on above: Performed By: #### 7 18, 6399, 622, 22773, 17056, 905, 04925, 88229 #### [facility] of [place] [address] Counter Roller: Keven Shukla MD Erythrocyte distribution width (RBC) [Ratio] 12.0 % Normal 11.0-15.0 [facility] Comment on above: Performed By: #### 7 18, 6399, 622, 19106, 13106, 905, 03507, 83433 #### [facility] of [place] [address] Counter Roller: Keven Shukla MD Hematocrit (Bld) [Volume fraction] 38.5 % Normal 35.0-45.0 [facility] Comment on above: Performed By: #### 7 18, 6399, 622, 18533, 55937, 905, 28051, 14640 #### [facility] of [place] [address] Counter Roller: Keven Shukla MD Hemoglobin (Bld) [Mass/Vol] 13.3 g/dL Normal 11.7-15.5 [facility] Comment on above: Performed By: #### 7 18, 6399, 622, 08983, 19505, 905, 97955, 24714 #### [facility] [place] [address] Counter Roller: Keven Shukla MD Lymphocytes (Bld) [#/Vol] 1.87 10*3/uL Normal 850-3900 [facility] Comment on above: Performed By: #### 7 18, 6399, 622, 47210, 10419, 905, 68010, 76279 #### [facility] [place] [address] Counter Roller: Keven Shukla MD Lymphocytes/100 WBC (Bld) 24.6 % Normal [facility] Comment on above: Performed By: #### 7 18, 6399, 622, 23171, 94648, 905, 46528, 74248 #### [facility] [place] [address] Counter Roller: Keven Shukla MD MCH (RBC) [Entitic mass] 33.7 pg High 27.0-33.0 [facility] Comment on above: Performed By: #### 7 18, 6399, 622, 13596, 93519, 905, 78876, 66454 #### [facility] [place] [address] Counter Roller: Keven Shukla MD MCHC (RBC) [Mass/Vol] 34.5 g/dL Normal 32.0-36.[address] [facility] Comment on above: Performed By: #### 7 18, 6399, 622, 17734, 52758, 905, 63709, 22585 #### [facility] [place] [address] Counter Roller: Keven Shukla MD MCV (RBC) [Entitic vol] 97.5 fL Normal 80.0-100.0 [facility] Comment on above: Performed By: #### 7 18, 6399, 622, 20691, 67278, 905, 61317, 21153 #### [facility] [place] [address] Counter Roller: Keven Shukla MD Monocytes (Bld) [#/Vol] 0.768 10*3/uL Normal 200-950 [facility] Comment on above: Performed By: #### 7 18, 6399, 622, 81134, 21769, 905, 06959, 93808 #### [facility] [place] [address] Counter Roller: Keven Shukla MD Monocytes/100 WBC (Bld) 10.1 % Normal [facility] Comment on above: Performed By: #### 7 18, 6399, 622, 46162, 45966, 905, 45416, 57721 #### [facility] [place] [address] Counter Roller: Keven Shukla MD Neutrophils (Bld) [#/Vol] 4.818 10*3/uL Normal 8451-6483 [facility] Comment on above: Performed By: #### 7 18, 6399, 622, 70196, 20043, 905, 70177, 13084 #### [facility] [place] [address] Counter Roller: Keven Shukla MD Neutrophils/100 WBC (Bld) 63.4 % Normal [facility] Comment on above: Performed By: #### 7 18, 6399, 622, 36129, 70795, 905, 86116, 93540 #### [facility] [place] [address] Counter Roller: Keven Shukla MD Platelet mean volume (Bld) [Entitic vol] 11.2 fL Normal 7.5-12.5 [facility] Comment on above: Performed By: #### 7 18, 6399, 622, 07282, 23843, 905, 71553, 85897 #### [facility] [place] [address] Counter Roller: Keven Shukla MD Platelets (Bld) [#/Vol] 285 10*3/uL Normal 140-400 [facility] Comment on above: Performed By: #### 7 18, 6399, 622, 60600, 48822, 905, 97301, 60928 #### [facility] [place] [address] Counter Roller: Keven Shukla MD RBC (Bld) [#/Vol] 3.95 10*6/uL Normal 3.80-5.10 [facility] Comment on above: Performed By: #### 7 18, 6399, 622, 38922, 96291, 905, 30028, 07739 #### [facility] [place] [address] Counter Roller: Keven Shukla MD WBC (Bld) [#/Vol] 7.6 10*3/uL Normal 3.8-10.8 [facility] Comment on above: Performed By: #### 7 18, 6399, 622, 42108, 42979, 905, 37779, 02718 #### [facility] [address], [address] [place] [address] Counter Roller: Keven Shukla MD MAGNESIUMon 07-26-2021 Magnesium [Mass/Vol] 1.4 mg/dL Low 1.5-2.5 [facility] Comment on above: Performed By: #### 7 18, 6399, 622, 00127, 76152, 905, 41925, 47822 #### [facility] [address], [address] [place] [address] Counter Roller: Keven Shukla MD PHOSPHATE ( PHOSPHORUS)on 07-26-2021 Phosphate [Mass/Vol] 4.2 mg/dL Normal 2.1-4.3 [facility] Comment on above: Performed By: #### 7 18, 6399, 622, 27772, 09017, 905, 82155, 11954 #### [facility] [address], [address] [place] [address] Counter Roller: Keven Shukla MD PTH, INTACT WITHOUT CALCIUMo n 07-26-2021 PARATHYROID HORMONE, INTACT 14 pg/mL Normal 14-64 [facility] Comment on above: Result Comment: Interpretive Guide Intact PTH Calcium ------- Normal Parathyroid Normal Normal Hypoparathyroidism Low or Low Normal Low Hyperparathyroidism Primary Normal or High High Secondary High Normal or Low Tertiary High High Non-Parathyroid Hypercalcemia Low or Low Normal High Performed By: #### 7 18, 6399, 622, 00934, 88237, 905, 97663, 75963 #### [facility] [address], [address] [place] [address] Counter Roller: Keven Shukla MD TSH+FREE T4on 07-26-2021 Free T4 [Mass/Vol] 1.4 ng/dL Normal 0.8-1.8 [facility] Comment on above: Order Comment: FASTI NG:UNKNOWN FASTING: UNKNOWN Performed By: #### 7 18, 6399, 622, 51985, 21450, 905, 07310, 99062 #### [facility] [address] [facility], [address] [place] [address] Counter Roller: Keven Shukla MD TSH Qn 1.43 m[IU]/L Normal 0.40-4.50 [facility] Comment on above: Order Comment: FASTI NG:UNKNOWN FASTING: UNKNOWN Performed By: #### 7 18, 6399, 622, 09113, 69184, 905, 19955, 29440 #### [facility] [address] [facility], [address] [place] [address] Counter Roller: Keven Shukla MD URIC ACIDon 07-26-2021 Urate [Mass/Vol] 4.5 mg/dL Normal 2.5-7.0 [facility] Comment on above: Result Comment: Ther apeutic target for gout patients: <6.0 mg/dL Performed By: #### 7 18, 6399, 622, 51453, 56278, 905, 52703, 42025 #### [facility] [address] [place] [address], [address] [place] [address] Counter Roller: Keven Shukla MD VITAMIN D,25-OH,TOTAL,IAon 1 09-25-2020 VITAMIN D,25-OH,TOTAL,IA 48 ng/mL Normal 30-100 [facility] Comment on above: Result Comment: Renee min D Status 25-OH Vitamin D: Deficiency: <20 ng/mL Insufficiency: 20 - 29 ng/mL Optimal: > or = 30 ng/mL For 25-OH Vitamin D testing on patients on D2-supplementation and patients for whom quantitation of D2 and D3 fractions is required, the QuestAssureD(TM) 25-OH VIT D, (D2,D3), LC/MS/MS is recommended: order code 42866 (patients >2yrs). See Note 1 Note 1 For additional information, please refer to [email or web address]/faq/NLL482 (This link is being provided for informational/ educational purposes only.) Performed By: #### 7 18, 6399, 622, 11656, 33765, 905, 79089, 24550 #### [facility] [address] [facility], [address] [place] [address] Counter Roller: Keven Shukla MD Vital Signs Date Time Vital Sign Value Performing Clinician Facility 05-05-2024 13:42-0400 Body height 160.02 cm [facility] 05-05-2024 13:42-0400 Body mass index (BMI) [Ratio] 21.6 kg/m2 [facility] 05-05-2024 13:42-0400 Body weight 55.33 kg [facility] 05-05-2024 13:42-0400 Diastolic blood pressure 78 mm[Hg] [facility] 05-05-2024 13:42-0400 Heart rate 72 /min [facility] 05-05-2024 13:42-0400 Systolic blood pressure 128 mm[Hg] [facility] 04-18-2024 11:06-0400 Body height 160.02 cm [facility] 04-18-2024 11:06-0400 Body mass index (BMI) [Ratio] 20.9 kg/m2 [facility] 04-18-2024 11:06-0400 Body weight 53.52 kg [facility] 04-18-2024 11:06-0400 Diastolic blood pressure 58 mm[Hg] [facility] 04-18-2024 11:06-0400 Heart rate 80 /min [facility] 04-18-2024 11:06-0400 Respiratory rate 18 /min [facility] 04-18-2024 11:06-0400 SaO2% (BldA) [Mass fraction] 98 % [facility] 04-18-2024 11:06-0400 Systolic blood pressure 126 mm[Hg] [facility] 12-26-2023 08:40-0400 Body height 160.02 cm DO Paty Dyer Work Phone: [facility] 12-26-2023 08:40-0400 Body mass index (BMI) [Ratio] 21.2 kg/m2 DO Paty Dyer Work Phone: [facility] 12-26-2023 08:40-0400 Body weight 54.43 kg DO Paty Dyer Work Phone: [facility] 12-26-2023 08:40-0400 Diastolic blood pressure 56 mm[Hg] DO Paty Dyer Work Phone: [facility] 12-26-2023 08:40-0400 Heart rate 83 /min DO Paty Dyer Work Phone: [facility] 12-26-2023 08:40-0400 Respiratory rate 18 /min DO Paty Dyer Work Phone: [facility] 12-26-2023 08:40-0400 SaO2% (BldA) [Mass fraction] 99 % DO Paty Dyer Work Phone: [facility] 12-26-2023 08:40-0400 Systolic blood pressure 128 mm[Hg] DO Paty Dyer Work Phone: [facility] 12-14-2023 10:45-0400 Body height 160.02 cm DO Paty Dyer Work Phone: [facility] 12-14-2023 10:45-0400 Body mass index (BMI) [Ratio] 20.8 kg/m2 DO Paty Dyer Work Phone: [facility] 12-14-2023 10:45-0400 Body weight 53.32 kg DO Paty Dyer Work Phone: [facility] 12-14-2023 10:45-0400 Diastolic blood pressure 70 mm[Hg] DO Paty Dyer Work Phone: [facility] 12-14-2023 10:45-0400 Heart rate 80 /min DO Paty Dyer Work Phone: [facility] 12-14-2023 10:45-0400 Respiratory rate 18 /min DO Paty Dyer Work Phone: [facility] 12-14-2023 10:45-0400 SaO2% (BldA) [Mass fraction] 99 % DO Paty Manisha Work Phone: [facility] 12-14-2023 10:45-0400 Systolic blood pressure 104 mm[Hg] DO Paty Manisha Work Phone: [facility] 11-05-2023 11:46-0500 Body height 160.02 cm DO Paty Manisha Work Phone: [facility] 11-05-2023 11:46-0500 Body mass index (BMI) [Ratio] 21.4 kg/m2 DO Paty Manisha Work Phone: [facility] 11-05-2023 11:46-0500 Body weight 55.05 kg DO Paty Manisha Work Phone: [facility] 11-05-2023 11:46-0500 Respiratory rate 18 /min DO Paty Dyer Work Phone: [facility] 08-14-2023 11:45-0500 Body height 160.02 cm Paty Dyer Other [employer] Other 08-14-2023 11:45-0500 Body mass index (BMI) [Ratio] 21.45 kg/m2 Patydamaris Dyer Other [employer] Other 08-14-2023 11:45-0500 Body weight 54.93 kg Patydamaris Dyer Other [employer] Other 08-14-2023 11:45-0500 Diastolic blood pressure 62 mm[Hg] Paty Manisha Other [employer] Other 08-14-2023 11:45-0500 Respiratory rate 18 /min Paty Dyer Other [employer] Other 08-14-2023 11:45-0500 SaO2% (BldA) [Mass fraction] 99 % Paty Dyer Other [employer] Other 08-14-2023 11:45-0500 Systolic blood pressure 118 mm[Hg] Paty Dyer Other [employer] Other 05-15-2023 10:30-0400 Body height 160.02 cm Paty Dyer Other [employer] Other 05-15-2023 10:30-0400 Body mass index (BMI) [Ratio] 21.01 kg/m2 Patydamaris Dyer Other [employer] Other 05-15-2023 10:30-0400 Body weight 53.8 kg Paty Dyer Other [employer] Other 05-15-2023 10:30-0400 Diastolic blood pressure 72 mm[Hg] Paty Dyer Other [employer] Other 05-15-2023 10:30-0400 Respiratory rate 18 /min Paty Dyer Other [employer] Other 05-15-2023 10:30-0400 SaO2% (BldA) [Mass fraction] 98 % Paty Dyer Other [employer] Other 05-15-2023 10:30-0400 Systolic blood pressure 118 mm[Hg] Paty Dyer Other [employer] Other 03-14-2023 11:00-0400 Body height 160.02 cm Paty Dyer Other [employer] Other 03-14-2023 11:00-0400 Body mass index (BMI) [Ratio] 20.42 kg/m2 Paty Dyer Other [employer] Other 03-14-2023 11:00-0400 Body weight 52.3 kg Paty Dyer Other [employer] Other 03-14-2023 11:00-0400 Diastolic blood pressure 58 mm[Hg] Paty Dyer Other [employer] Other 03-14-2023 11:00-0400 Respiratory rate 18 /min Paty Dyer Other [employer] Other 03-14-2023 11:00-0400 SaO2% (BldA) [Mass fraction] 98 % Paty Dyer Other [employer] Other 03-14-2023 11:00-0400 Systolic blood pressure 122 mm[Hg] Paty Dyer Other [employer] Other Encounters Encounter Date Encounter Type Care Provider Facility Start: 05-06-2024 End: 05-06-2024 ambulatory DO Paty Dyer Work Phone: [facility] Work Phone: Start: 05-06-2024 End: 05-06-2024 Patient encounter procedure DO Paty Dyer Work Phone: [facility] Start: 05-05-2024 End: 05-05-2024 ambulatory DO Paty A Dyer Work Phone: [facility] Work Phone: Start: 05-05-2024 End: 05-05-2024 Patient encounter procedure [facility] Work Phone: Start: 04-18-2024 End: 04-18-[address] [facility] Work Phone: Start: 04-18-2024 End: 04-18-2024 Patient encounter procedure [facility] Work Phone: Start: 12-26-2023 End: 12-26-2023 Patient encounter procedure DO Paty Dyer Work Phone: [facility] Work Phone: Start: 12-26-2023 End: 12-26-2023 ambulatory DO Paty A Dyer Work Phone: [facility] Work Phone: Start: 12-19-2023 Non-patient / Non-visit DO Paty Dyer Work Phone: [facility] Work Phone: Start: 12-14-2023 End: 12-14-2023 Patient encounter procedure DO Paty Dyer Work Phone: [facility] Start: 12-14-2023 End: 12-14-2023 ambulatory DO Paty A Dyer Work Phone: [facility] Work Phone: Start: 12-14-2023 End: 12-14-2023 ambulatory DO Paty A Dyer Work Phone: [facility] Work Phone: Start: 12-14-2023 End: 12-14-2023 Patient encounter procedure DO Paty Manisha Work Phone: [facility]ician [facility] [place] Work Phone: Start: 11-23-2023 End: 11-23-2023 Patient encounter procedure DO Paty Manisha Work Phone: [facility] [facility] Start: 11-23-2023 End: 11-23-2023 ambulatory DO Paty A Manisha Work Phone: [facility] Work Phone: Start: 11-05-2023 End: 11-05-2023 Patient encounter procedure DO Paty Manisha Work Phone: [facility] [place] Work Phone: Start: 10-22-2023 End: 10-22-2023 ambulatory Patydamaris Dyer Other [employer] Other Start: 10-22-2023 Telephone encounter Patydamaris Dyer [facility] [place] Start: 09-11-2023 End: 09-11-2023 ambulatory Paty Manisha Other [employer] Other Start: 09-11-2023 Telephone encounter Patyvanita Dyer [facility] Start: 09-05-2023 End: 09-05-2023 ambulatory MARIN PAREDESAWI Not Available Start: 08-14-2023 End: 08-14-2023 ambulatory Paty Manisha Other [employer] Other Start: 08-14-2023 Office outpatient visit 25 minutes Paty Dyer [facility] [place] Start: 05-15-2023 End: 05-15-2023 ambulatory Paty Dyer Other [employer] Other Start: 05-15-2023 Office outpatient visit 25 minutes Paty Dyer [facility] [place] Start: 03-14-2023 End: 03-14-2023 ambulatory Paty Dyer Other [facility] [employer] Other Start: 03-14-2023 Office outpatient ne w 45 minutes Paty Dyer [facility] Start: 02-06-2023 End: 02-07-[address] JORDAN PANDEY Facility: Start: 11-10-2022 End: 11-11-[address] JORDAN PANDEY Facility:[facility] Start: 07-20-2022 End: 07-21-[address] JORDAN PANDEY Facility:[facility] Start: 07-15-2022 End: 07-15-2022 ambulatory DESHAUN SANCHEZ . Facility: Procedures Date Procedure Procedure Detail Performing Clinician Start: 05-05-2024 Diagnostic radiograp hy of abdomen DO Paty Dyer Work Phone: Plan of Treatment Date Care Activity Detail Author Start: 05-05-2024 Bacteria identified in Urine by Culture [facility] Start: 12-26-2023 [facility] Start: 12-14-2023 [facility] Start: 11-05-2023 Patient referral [facility] Work Phone: Comprehensive metabo lic 2000 panel - Serum or Plasma [facility] Diagnostic radiograp hy of abdomen [facility] DXA Skeletal system. axial Views for bone density [facility] Glucose measurement estimated from glycated hemoglobin [facility] MG Breast - bilateral Screening [facility] Microalbumin [Mass/v olume] in Urine [facility] Microalbumin/Creatin ine [Mass Ratio] in Urine [facility] Patient referral [facility] Work Phone: [facility] Immunizations Immunization Date Immunization Notes Care Provider Fa cility 08-21-2023 RSV, preF3, adj, pf DO Shaye Dyer Work Phone: [facility] 06-17-2023 COVID-19 Vaccine Pfi zer - Documentation Purposes Only Paty Dyer Other [facility] 06-17-2023 Flu Shot - Documenta tion Purposes Only Paty Dyer Other [facility] 06-22-2022 influenza, seasonal, injectable Paty Dyer Other [facility] 06-22-2022 COVID-19 Pfizer (bivalent) Paty Dyer Other [facility] 06-22-2022 Fluzone QIV High-Dos e 65YR+ DO Paty Dyer Work Phone: [facility] 12-21-2021 COVID-19 Pfizer Paty Dyer Other [facility] 07-20-2021 COVID-19 Vaccine Mod marlo - Documentation Purposes Only Paty Dyer Other [facility] 06-20-2021 Fluzone QIV High-Dos e 65YR+ DO Paty Dyer Work Phone: [facility] 05-19-2021 zoster vaccine recombinant Paty Dyer Other [facility] 12-13-2020 zoster vaccine recombinant Paty Dyer Other [facility] 11-10-2020 COVID-19 Vaccine Mod marlo - Documentation Purposes Only Paty Dyer Other [facility] 10-13-2020 COVID-19 Vaccine Mod marlo - Documentation Purposes Only Paty Dyer Other [facility] 06-22-2020 Seasonal, quadrivale nt, recombinant, injectable influenza vaccine, preservative free DO Paty Dyer Work Phone: [facility] 07-09-2018 influenza, high dose seasonal, preservative-free DO Paty Dyer Work Phone: [facility] 06-11-2018 influenza, high dose seasonal, preservative-free DO Paty Dyer Work Phone: [facility] 08-13-2017 influenza, injectabl e, quadrivalent, contains preservative DO Paty Dyer Work Phone: [facility] 06-13-2016 influenza, seasonal, injectable, preservative free DO Paty [facility] Work Phone: [facility] Payers Date Payer Category Payer Self-pay [id number] 1960 Medicare [id number] 1960 Unknown [id number] 1945 Unknown [id number] 2.16.84 [id number] 1945 Unknown [id number] 2.16.84 [id number] 1944 Unknown [id number] 2.16.84 [id number] 1944 Unknown [id number] 2.16.84 [id number] 1944 Unknown [id number] [id number] Unknown [facility] [id number] Unknown [facility] [id number] Unknown [id number] 2.16.8 [id number] Unknown [id number] 2.16.8 [id number] Unknown [id number] 2.16.8 [id number] Unknown [id number] 2.16.8 [id number] Unknown [id number] 2.16.8 [id number] Social History Date Type Detail Facility Unknown if ever smoked [employer] Other Sex Assigned At Sex Assigned At Bir th [employer] Other Start: 10-22-2023 End: 12-14-2023 Tobacco smoking status NHIS Never smoked tobacco (finding) [facility] Start: 1945 Sex Assigned At Female F [facility] Clinical Notes 03-14-2023 to 09-11-2023 Note Date & Type Note Facility 09-11-2023 Evaluation note Encounter Date Diagnosis Assessment Notes Sep, Essential hypertension (ICD-10 - I10) [employer] Other 12-05-2023 Evaluation note* Encounter Date Diagnosis Assessment Notes Treatment Notes Treatment Clinical Notes Aug, Essential hypertension (ICD-10 - I10) Controlled on current dose of amlodipine and lisinopril, will continue Aug, Memory impairment (ICD-10 - R41.3) Referral to neuropsych for cognitive evaluation Aug, Type 2 diabetes mellitus (ICD-10 - E11.9) Well controlled on current dose of metformin, will continue Aug, Overactive bladder (ICD-10 - N32.81) Aug, Hypothyroidism (ICD-10 - E03.9) Recent TFTs in normal range 03/2023Aug, Constipation (ICD-10 - K59.00) Encouraged to increase water intake, she is compliant with daily stool softener. Will f/u if no improvement or worsening symptoms. [employer] Other 09-05-2023 Evaluation note* Encounter Date Diagnosis Assessment Notes Treatment Notes Treatment Clinical Notes May, Type 2 diabetes mellitus (ICD-10 - E11.9) Recent a1c 6.2% and blood sugars in good range overall. To continue current dose of metformin, will f/u in 3 months for recheck of a1c May, Essential hypertension (ICD-10 - I10) Well controlled on current antihypertensives, will continue May, Memory impairment (ICD-10 - R41.3) Recent check of TSH, B12, folate normal. Can consider cognitive eval if no improvement or worsening symptoms. [employer] Other 07-05-2023 Evaluation note* Encounter Date Diagnosis Assessment Notes Treatment Notes Treatment Clinical Notes Mar, Type 2 diabetes mellitus (ICD-10 - E11.9) Due for a1c, tolerating metformin without side effect Mar, Memory impairment (ICD-10 - R41.3) Will check lab work including vitamin levels and TSH. Consider cognitive evaluation, will discuss further at next appt Mar, Essential hypertension (ICD-10 - I10) Well controlled on current meds amlodipine and losartan, will continue Mar, Hypothyroidism (ICD-10 - E03.9) Due for TFTs Mar, Overactive bladder (ICD-10 - N32.81) Per patient Mybetriq working well to control symptoms Mar, Vertigo (ICD-10 - R42) [employer] Other evaluation noteNo [employer] Other evaluation note* Diagnosis Onset Date Resolution Status Age-related memory disorder acute [facility] Work Phone: Evaluation note* Diagnosis Onset Date Resolution Status Age-related memory disorder acute Essential hypertension acute Hypothyroidism acute Medicare annual wellness visit, subsequent acute Type 2 diabetes mellitus acu [facility] Work Phone: Evaluation note* Diagnosis Onset Date Resolution Status Age-related memory disorder acute Age-related memory disorder acute Essential hypertension acute Hypothyroidism acute Medicare annual wellness visit, subsequent acute Type 2 diabetes mellitus acu [facility] Work Phone: Evaluation note* Diagnosis Onset Date Resolution Status Age-related memory disorder acute Age-related memory disorder acute Essential hypertension acute Hypothyroidism acute Medicare annual wellness visit, subsequent acute Type 2 diabetes mellitus acu te Essential hypertension acute [facility] Work Phone: Evaluation noteNo assessment information available [facility] Work Phone: Evaluation note* Diagnosis Onset Date Resolution Status Essential hypertension acute Type 2 diabetes mellitus acu te Flank pain noneactive [facility] [employer] Work Phone: History general Narrative - Reported* Type Description Date Medical History type 2 diabetic Medical History hypertension Medical History hypothyroidism Surgical History T&A Surgical History Appendectomy Surgical History D&C Surgical History Cholecystectomy Surgical History Nephrolithiasis Surgical History left clavicle sx Hospitalization History see above Hospitalization History child [employer] Other Reason for referral (narrative)* Reason cognitive evaluation for memory change pt phone# [phone] Diagnosis 1 Memory impairment (R 41.3) Referral Organization [facility] Max Combs Referring Provider First Name Paty Referring Provider Last Name Manisha Referring Provider Specialty Family [facility] cine Referred Organization [facility] Referred Address [address] [place] [id number] Referred Provider Specialty Neuropsychia try Referral Priority Routine General Notes Alisha Cortez 01/2023 02:13:24 PM >referral received, please call [phone] to schedule appt [employer] Other Summary Purpose Family History No Family History Records Found Relationship Condition Age at Onset Recorded Date/T margy brother Heart disease Unknown Diabetes mellitus Unknown father Diabetes mellitus Unknown Unknown History of stroke Unknown family member Unknown Not Specified Unknown Malignant neoplasm Unknown sister Diabetes mellitus Unknown Relationship Condition Age at Onset Recorded Date/T margy brother Heart disease Unknown Diabetes mellitus Unknown father Diabetes mellitus Unknown Unknown History of stroke Unknown family member Unknown mother Unknown Malignant neoplasm Unknown sister Diabetes mellitus Unknown Advance Directives No Advanced Directives Records Found Advance Directive Response Recorded Date/ Time Advance Directives No October 5:32pm Chief Complaint and Reason for Visit Chief Complaint Discuss cognitive ev al results driving eval Reason for Visit Age-related memory d isorder Chief Complaint Discuss cognitive ev al results driving eval [id number] Reason for Visit Age-related memory d isorder Essential hypertension Hypothyroidism Medicare annual wellness visit, subsequent Type 2 diabetes mellitus Chief Complaint Discuss cognitive ev al results driving eval [id number] E11.9 Reason for Visit Age-related memory d isorder Age-related memory disorder Essential hypertension Hypothyroidism Medicare annual wellness visit, subsequent Type 2 diabetes mellitus Chief Complaint Discuss cognitive ev al results driving eval [id number] E11.9 Amb Documentation E11.9 go over medications Reason for Visit Age-related memory d isorder Age-related memory disorder Essential hypertension Hypothyroidism Medicare annual wellness visit, subsequent Type 2 diabetes mellitus Chief Complaint Discuss cognitive ev al results driving eval [id number] E11.9 Amb Documentation E11.9 go over medications Reason for Visit Age-related memory d isorder Age-related memory disorder Essential hypertension Hypothyroidism Medicare annual wellness visit, subsequent Type 2 diabetes mellitus Essential hypertension Chief Complaint 4 month follow up a1 c Chief Complaint 4 month follow up a1 c possible kidney infection Reason for Visit Essential hypertensi on Type 2 diabetes mellitus Flank pain Chief Complaint 4 month follow up a1 c possible kidney infection R10.9 Reason for Visit Essential hypertensi on Type 2 diabetes mellitus Flank pain Chief Complaint 4 month follow up a1 c possible kidney infection R10.9 R10.9 Reason for Visit Essential hypertensi on Type 2 diabetes mellitus Flank pain Additional Source Comments INFORMATION SOURCE (unrecogn ized section and content) DATE CREATED AUTHOR 01/28/2022 [facility] DATE CREATED AUTHOR AUTHOR'S ORGANIZ ATION 02/16/2023 [facility] DATE CREATED AUTHOR AUTHOR'S ORGANIZ ATION 09/07/2023 [facility] EPIC DATE CREATED AUTHOR AUTHOR'S ORGANIZ ATION 05/18/2024 [facility] REASON FOR VISIT (unrecogniz ed section and content) EST CARE2 month Follow up3 m [facility] Follow up, [id number] eval results Care Teams (unrecognized sec tion and content) Team Status: Active Member Role Status Dates Paty Dyer DO Primary Care Provider Active Team Status: Inactive Member Role Status Dates Jordan Pandey DO Primary Care Provider Active Start: November 05, 2023 End: November 05, 2023 Paty Dyer DO Attending Provider Active St art: November 05, 2023 End: November 05, 2023 Team Status: Inactive Member Role Status Dates Paty Dyer DO Primary Care Provide r, Attending Provider Active Start: November 23, 2023 End: November 23, 2023 Team Status: Inactive Member Role Status Dates Paty A Dyer , DO Primary Care Provide r, Attending Provider Active Start: December 14, 2023 End: December 14, 2023 Team Status: Active Member Role Status Dates Paty Dyer , DO Primary Care Provider Active Start: December 19, 2023 NATALI Jacobs Attending Provider Active S tart: December 19, 2023 Team Status: Active Member Role Status Dates Paty Dyer , DO Primary Care Provide r, Attending Provider Active Start: December 26, 2023 Team Status: Inactive Member Role Status Dates Paty Dyer , DO Primary Care Provide r, Attending Provider Active Start: December 26, 2023 End: December 26, 2023 Team Status: Inactive Member Role Status Dates Paty Dyer , DO Primary Care Provide r, Attending Provider Active Start: April 18, 2024 End: April 18, 2024 Team Status: Inactive Member Role Status Dates Paty Dyer , DO Primary Care Provider Active Start: May 05, 2024 End: May 05, 2024 Henry Burns APRN Attending Provider Active Start: May 05, 2024 End: May 05, 2024 Team Status: Inactive Member Role Status Dates Paty Dyer , DO Primary Care Provider Active Start: May 06, 2024 End: May 06, 2024 Henry Burns APRN Attending Provider Active Start: May 06, 2024 End: May 06, 2024 Goals (unrecognized section and content) Goals may be documented in a n alternate section FOR RECORDS PERTAINING TO PATIENTS WHO ARE OR HAVE BEEN ENROLLED IN A CHEMICAL DEPENDENCY/SUBSTANCEABUSE PROGRAM, SOME INFORMATION MAY BE OMITTED. This clinical summary was aggregated from multiple sources. Caution should be exercised in using it in the provision of clinical care. This summary normalizes information from multiple sources, and as a consequence, information in this document may materially change the coding, format and clinical context of patient data. In addition, data may be omitted in some cases. CLINICAL DECISIONS SHOULD BE BASED ON THE PRIMARY CLINICAL RECORDS. [employer] provides no warranty or guarantee of the accuracy or completeness of information in this document.
[2024-05-21 17:25] LABS: Alanine Aminotransferase 19 U/L (14-59); Albumin Globulin Ratio 1.1; Albumin Level 3.9 g/dL (3.4-5.0); Alkaline Phosphatase 74 U/L (46-116); Anion Gap 12.8; Aspartate Amino Transferase 19 U/L (15-37); BUN Creatinine Ratio 15.2; Bilirubin Total 0.4 mg/dL (0.2-1.0); Calcium 9.5 mg/dL (8.5-10.1); Carbon Dioxide 28.7 mmol/L (21.0-32.0); Chloride 101 mmol/L (98-107); Estimated GFR (African America 50 (>=60); Estimated GFR (Non-African Ame 41 (>=60); Globulin 3.7 g/dL; Glucose 124 mg/dL (74-106); Potassium 4.5 mmol/L (3.5-5.1); Sodium 138 mmol/L (136-145); Total Protein 7.6 g/dL (6.4-8.2)
== END 2024-05-21 19:40 | disposition home or self-care (01) ==
PROVIDERS: Emergency Provider Emergency Medicine; PCP Family Medicine
DX: K59.00 Constipation, unspecified (principal); N20.0 Calculus of kidney
CPT/HCPCS: 36415; 74177; 80053; 81003; 85025; 99285; Q9967

== ENCOUNTER 2025-02-09 12:29 | Outpatient (OUT) | payer MEDICARE, SELFPAY ==
--- NOTE | 2025-02-09 12:32 | MM_ITS ---
Patient Name: MEERA XIONG MR#: [id number] : 1945 Exam Date: 02/09/2025 Ordering Doctor: FERNANDO KAPADIA RADIOLOG[facility] REPORT PROCEDURE: MM TOMOSYNTHESIS SCREENING BI COMPARISON: MM TOMOSYNTHESIS SCREENING BI, 02/08/2024. MG MAMM SCREEN 3D KARSTEN CAD, 02/06/2023. MG MAMM SCREEN 3D KARSTEN CAD, 02/02/2022. MG MAMM KARSTEN SCRN W CAD DIG, 09/12/2013. INDICATIONS: Screening for malignant neoplasm Calculator Name NCI Breast Cancer Risk Assessment Tool 5 Year Breast Cancer Risk 1.70% Lifetime Breast Cancer Risk 2.70% Personal Breast Cancer No Personal Ovarian Cancer No Treatments None Family Cancers Aunt-maternal with breast cancer at age 83; Mother with pancreatic cancer at age 84. LOCATION: [facility] BREAST COMPOSITION: There are scattered areas of fibroglandular density. FINDINGS: DIAGNOSTIC CATEGORY 2--BENIGN FINDING: RIGHT BREAST: No significant suspicious finding. Benign-appearing calcifications are present. There is a similar focal asymmetry. LEFT BREAST: No significant suspicious finding. Benign-appearing calcifications are present. There is a biopsy clip on the left. RECOMMENDATIONS: ROUTINE MAMMOGRAM AND CLINICAL EVALUATION IN 12 MONTHS. PLEASE NOTE: A NORMAL MAMMOGRAM DOES NOT EXCLUDE THE POSSIBILITY OF BREAST CANCER. A CLINICALLY SUSPICIOUS PALPABLE LUMP SHOULD BE BIOPSIED. Dictated by: Vishal Scales MD on 02/09/2025 at 16:13 Approved by: Vishal Scales MD on 02/09/2025 at 16:16
--- OUTSIDE RECORDS SUMMARY | 2025-02-09 12:51 | XMS_ITS | CCD ---
Author Organization [facility] Care Team Providers Care Management Nurse Rn Name Role Phone JIGAR, DR JORDAN Mcnair Admitting Unavailable FURLONG, DR JORDAN Mcnair Attending Unavailable FURLONG, DR JORDAN Mcnair Consulting Unavailable FURLONG, DR JORDAN Mcnair Primary Care Unavailable FURLONG, DR JORDAN Mcnair Primary Care Unavailable NATAPRAWIRA, MARIN Admitting Unavailable [place], DR GUSTAVO Coleman Consulting Unavailable NATAPRAWIRA, MARIN [...] BECKY CLIFTON Consulting Unavailable Dyer, Paty Unavailable Dyer, DO Paty A Primary Care Provider [phone] Dyer, DO Apty A Attending Provider Dyer, DO Paty A Primary Care Provider [phone] SAMANTHA Burns Attending Provider Dyer, Paty A Admitting Unavailable Dyer, Paty A Primary Care Unavailable Dyer, Paty A Attending Unavailable Manisha, Paty A Primary Care Unavailable Henry Burns Admitting Unavailable Henry Burns Attending Unavailable Dyer, Paty A Primary Care Unavailable Henry Burns Admitting Unavailable Henry Burns Attending Unavailable Dyer, Paty A Admitting Unavailable Dyer, Paty A Primary Care Unavailable Dyer, Paty A Attending Unavailable Deyr, Paty A Attending Unavailable Dyer, Paty A Admitting Unavailable Dyer, Paty A Primary Care Unavailable Paty Dyer Admitting Unavailable Paty Dyer Primary Care Unavailable Paty Dyer Attending Unavailable Paty Dyer DO Primary Care Provider Henry Burns APRN Attending Provider Paty Dyer DO Attending Provider Paty Dyer MD Primary Care Provider ZEB LUZ Attending Unavailable Paty Dyer DO Primary Care Provider PATY DYER Primary Care Physician [phone] Sherry Roth Attending Unavailable PATY DYER Primary Care Unavailable Sherry Roth Attending Unavailable PATY DYER Primary Care Unavailable ZEB LUZ Unavailable Medications Current Medications Medication Drug Class(es) Dates Sig (Normalized) Sig (Original) amLODIPine 10 mg oral tablet (20 sources) Dihydropyridine Calcium Channel Luís Start: 02-03-2025 take 1 tablet by mouth once daily amLODIPine 10 mg Tab 10 mg = 1 tab(s), Oral, Daily, # 90 tab(s), Refills(s) 0 Start Date: 02/03/25 Status: Ordered Quantity: 90.0 Unit: tab(s) Repeat number: 1 Start: 07-12-2023 End: 12-26-2023 take 1 tablet by mouth once daily Amlodipine 10 mg tablet Discontinued 1 TAB PO Daily November 05, 2023 1:00am December 26, 2023 9:17am FreeTextSi tablet Orally Once a day; Note: Source Status: Taking; Provider: Jigar Ortega biotin 2.5 mg oral capsule (1 source) Start: 01-19-2025 take 1 capsule by mouth once daily Biotin 2,500 mcg capsule Active 2500 MCG PO Daily January 19, 2025 12:00am cinnamon bark 500 mg oral capsule (4 sources) Start: 02-03-2025 take 2 capsules by mouth twice daily cinnamon 500 mg oral capsule 1,000 mg = 2 cap(s), Oral, BID, # 100 cap(s), Refills(s) 0 Start Date: 02/03/25 Status: Ordered Quantity: 100.0 Unit: cap(s) Repeat number: 1 Start: 01-19-2025 cinnamon bark (Cinnamon) Active PO January 19, 2025 12:00am cinnamon 500 MG capsule as directed Orally Active clindamycin 10 mg/ml topical solution (3 sources) Lincosamide Antibacterial Start: 07-21-2024 Clindamycin Phosphate 1 % solution Active 1 APPLIC TOPICAL Daily as needed July 21, 2024 1:00am apply to itchy bumps multiple times per day, as needed docosahexaenoic acid 120 mg / eicosapentaenoic acid 180 mg oral capsule (2 sources) omega-3 (Fish Oil) 1000 MG capsule 1 capsule 1 (one) time each day at the same time Active docusate sodium 100 mg oral capsule (20 sources) Start: 02-03-2025 take 1 capsule by mouth twice daily as needed for constipation docusate sodium 100 mg Cap 100 mg = 1 cap(s), Oral, BID, PRN for constipation, # 20 cap(s), Refills(s) 0 Start Date: 02/03/25 Status: Ordered Quantity: 20.0 Unit: cap(s) Repeat number: 1 Start: 02-23-2023 End: 12-14-2023 take 1 capsule by mouth once daily as needed Docusate Sodium 100 mg capsule Discontinued 1 CAP PO Daily November 05, 2023 1:00am December 14, 2023 10:58am FreeTextSi capsule as needed Orally Once a day; Note: Source Status: Taking; Provider: OTC Fish Oils (6 sources) Start: 02-03-2025 [place]-3 Fish O il Oral, TID, Refills(s) 0 Start Date: 02/03/25 Status: Ordered Repeat number: 1 Fish Oil Not-[place] ing/PRN Fish Oil Not-Col[place] ing Fish Oil Active glimepiride 4 mg oral tablet (2 sources) Sulfonylurea glimepiride ([place] ryl) 4 MG tablet every 12 (twelve) hours Active levothyroxine sodium 0.075 mg oral tablet (20 sources) l-Thyroxine Start: 02-03-2025 take 1 tablet by mouth once daily Synthroid 75 mcg Tab 75 mcg = 1 tab(s), Oral, Daily, # 90 tab(s), Refills(s) 0 Start Date: 02/03/25 Status: Ordered Quantity: 90.0 Unit: tab(s) Repeat number: 1 Start: 07-30-2023 take 1 tablet by ollie th once daily in the morning Levothyroxine 75 mcg tablet Active 1 TAB PO Daily November 05, 2023 1:00am FreeTextSi tablet in the morning on an empty stomach Orally Once a day; Note: Source Status: Refill; Refills: 3; Qty: 90 Tablet; Provider: Jigar Ortega take 1 tablet by ollie th once daily in the morning Levothyroxine Sodium 75 MCG 1 tablet in the morning on an empty stomach Orally Once a day for 90 days Active liothyronine sodium 0.005 mg oral tablet (20 sources) l-Triiodothyronine Start: 02-03-2025 take 1 tablet by mouth once daily liothyronine 5 mcg Tab 5 mcg = 1 tab(s), Oral, Daily, # 90 tab(s), Refills(s) 0 Start Date: 02/03/25 Status: Ordered Quantity: 90.0 Unit: tab(s) Repeat number: 1 Start: 09-24-2024 take 1 tablet by ollie th three times weekly Liothyronine 5 mcg tablet Active 0 .ROUTE .COMPLEX 39 September 24, 2024 9:49am TAKE 1 TABLET BY MOUTH 3 TIMES A WEEK Start: 07-30-2023 End: 09-24-2024 take 1 tablet by mouth three times weekly Liothyronine 5 mcg tablet Discontinued 5 MCG PO 3 Times a week November 05, 2023 1:00am March 26, 2024 7:54am take 1 tablet by ollie th three times weekly Liothyronine Sodium 5 MCG 1 tablet Orally three times a week Active lovastatin 40 mg oral tablet (20 sources) HMG-CoA Reductase Inhibitor Start: 02-03-2025 take 1 tablet by mouth once daily lovastatin 40 mg Tab 40 mg = 1 tab(s), Oral, Daily, # 90 tab(s), Refills(s) 0 Start Date: 02/03/25 Status: Ordered Quantity: 90.0 Unit: tab(s) Repeat number: 1 Start: 07-12-2023 End: 09-19-2024 take 1 tablet by mouth once daily Lovastatin 40 mg tablet Discontinued 1 TAB PO Daily November 05, 2023 1:00am September 19, 2024 9:24am FreeTextSi Tablet Orally Once a day; Note: Source Status: Taking; Provider: Jigar Ortega Magnesium (1 source) Start: 01-19-2025 magnesium Acti ve PO January 19, 2025 12:00am meclizine hydrochloride 12.5 mg oral tablet (20 sources) Antiemetic Start: 02-03-2025 take 1 tablet by mouth three times daily as needed for dizziness meclizine 12.5 mg Tab 12.5 mg = 1 tab(s), Oral, TID, PRN for dizziness, # 60 tab(s), Refills(s) 0 Start Date: 02/03/25 Status: Ordered Quantity: 60.0 Unit: tab(s) Repeat number: 1 Start: 05-22-2024 Meclizine 12.5 mg tablet Active 0 .ROUTE .COMPLEX May 22, 2024 2:25pm TAKE 1 TABLET THREE TIMES A DAY NEEDED FOR DIZZINESS Start: 05-22-2024 Meclizine 12.5 mg tablet Active 0 .ROUTE .COMPLEX May 22, 2024 1:25pm TAKE 1 TABLET THREE TIMES A DAY NEEDED FOR DIZZINESS Start: 06-19-2023 End: 05-22-2024 take 1 tablet by mouth three times daily as needed Meclizine 12.5 mg tablet Discontinued 12.5 MG PO Three times daily as needed December 26, 2023 8:51am May 22, 2024 2:25pm 1 tablet as needed Orally three times a day metFORMIN hydrochloride 500 mg oral tablet (20 sources) Biguanide Start: 02-03-2025 take 1 tablet by mouth twice daily metformin 500 mg Tab 500 mg = 1 tab(s), Oral, BID, # 60 tab(s), Refills(s) 0 Start Date: 02/03/25 Status: Ordered Quantity: 60.0 Unit: tab(s) Repeat number: 1 Start: 11-05-2023 End: 12-26-2023 take 0.5 tablet by mouth twice daily Metformin 1,000 mg tablet Discontinued 0.5 TAB PO Twice daily November 05, 2023 1:00am December 26, 2023 8:55am FreeTextSi/2 tablet Orally twice a day; Note: Source Status: Taking; Provider: Jigar Ortega Start: 07-12-2023 End: 07-21-2024 take 1 tablet by mouth twice daily Metformin 500 mg tablet Discontinued 500 MG PO Twice daily December 26, 2023 12:00am July 21, 2024 4:51pm metFORMIN (Gluco phage) 1000 MG tablet every 12 (twelve) hours Active take 0.5 tablet by m outh twice daily metFORMIN HCl 1000 MG 1/2 tablet Orally twice a day Active 24 hr mirabegron 50 mg extended release oral tablet (20 sources) beta3-Adrenergic Agonist Start: 02-03-2025 End: 05-04-2025 take 1 tablet by mouth once daily Myrbetriq 50 mg oral tablet, extended release 50 mg = 1 tab(s), Oral, Daily, X 30 day(s), # 30 tab(s), Refills(s) 2, Pharmacy: [facility]/pharmacy #[id number], 160.9, cm, 02/03/25 13:47:00 EDT, Height/Length Dosing, 54.4, kg, 02/03/25 13:47:00 EDT, Weight Dosing Start Date: 02/03/25 Stop Date: 05/04/25 Status: Ordered Quantity: 30.0 Unit: tab(s) Repeat number: 3 Indications: Urge incontinence; Start: 06-25-2024 Mirabegron (My rbetriq) 25 mg tablet extended release 24 hr Active 0 .ROUTE .COMPLEX 90 June 25, 2024 1:27pm TAKE 1 TABLET DAILY Start: 11-05-2023 End: 06-25-2024 take 1 tablet by mouth once daily Mirabegron (Myrbetriq) 25 mg tablet extended release 24 hr Discontinued 1 TAB PO Daily November 05, 2023 1:00am June 25, 2024 1:27pm FreeTextSi tablet Orally Once a day; Note: Source Status: Refill; Refills: 3; Qty: 90 Tablet; Provider: Jigar Ortega Start: 02-23-2023 take 1 tablet by ollie th every twenty-four hours in the morning mirabegron (MYRBETRIQ) 25 mg tablet extended release 24 hr Indications: Urinary incontinence, unspecified type Take 1 tablet (25 mg total) by mouth in the morning. 90 tablet 1 02/23/2023 Active take 1 tablet by ollie th every twenty-four hours Myrbetriq 25 MG 1 tablet Orally Once a day for 90 days Active multivitamin with minerals (1 source) Start: 02-03-2025 multivitamin w ith minerals mL, Refill(s) 0 Start Date: 02/03/25 Status: Ordered Repeat number: 1 [id number] (Centrum Silver) (12 sources) Start: 11-05-2023 multivitamin-m inerals-lutein (Centrum Silver) Active PO November 05, 2023 12:00am Start: 11-05-2023 multivitamin-m inerals-lutein (Centrum Silver) Active PO November 05, 2023 1:00am omega-3 fatty acids (Fish Oi l) (12 sources) Start: 11-05-2023 omega-3 fatty acids (Fish Oil) Active PO November 05, 2023 12:00am Start: 11-05-2023 omega-3 fatty acids (Fish Oil) Active PO November 05, 2023 1:00am potassium 99 mg extended release oral tablet (11 sources) Start: 12-26-2023 take 1 mg by mouth once daily Potassium 99 mg tablet Active MG PO Daily December 26, 2023 12:00am Start: 12-26-2023 take 1 mg by mouth once daily Potassium Active MG PO Daily December 26, 2023 12:00am Potassium 99 MG tablet 1 (one) time each day at the same time Active potassium chloride 1.33 meq oral tablet (1 source) Start: 02-03-2025 take 1 tablet by mouth once daily potassium chloride 99 mg oral tablet 99 mg = 1 tab(s), Oral, Daily, # 100 tab(s), Refills(s) 0 Start Date: 02/03/25 Status: Ordered Quantity: 100.0 Unit: tab(s) Repeat number: 1 terbinafine 250 mg oral tablet (3 sources) Allylamine Antifungal terbinafine (LamISIL) 250 MG tablet 1 (one) time each day at the same time Active 24 hr verapamil hydrochloride 180 mg extended release oral capsule (2 sources) Calcium Channel Luís verapamil ER (Verelan) 180 MG 24 hr capsule 1 capsule 1 (one) time each day at the same time Active Completed/Discontinued Medications Medication Drug Class(es) Dates Sig (Normalized) Sig (Original) aspirin 81 mg delayed release oral tablet (18 sources) Platelet Aggregation Inhibitor, Nonsteroidal Anti-inflammatory Drug Start: 02-02-2023 End: 12-14-2023 take 1 tablet by mouth once daily Aspirin 81 mg tablet,delayed release (DR/EC) Discontinued 81 MG PO Daily November 05, 2023 1:00am December 14, 2023 10:56am take 1 tablet by mouth once luis angel y Aspirin 81 81 MG 1 tablet Orally Once a day Active cefTRIAXone (5 sources) Cephalosporin Antibacterial Start: 08-01-2016 Ro cephin 500 mg Jul, 250 mg Centrum Silver (5 sources) Centrum Silver Not-Taking/PRN Centrum Silver N ot-Taking Centrum Silver A ctive cholecalciferol 0.025 mg oral capsule (15 sources) Vitamin D Start: 11-05-2023 End: 01-19-2025 take 1 capsule by mouth once daily Cholecalciferol (Vitamin D3) 25 mcg (1,000 unit) capsule Discontinued 25 MCG PO Daily November 05, 2023 1:00am January 19, 2025 1:38pm Start: 02-02-2023 take 1 capsule by mo ut in the morning cholecalciferol, vitamin D3, 25 mcg (1,000 unit) capsule Take 1 capsule (1,000 Units total) by mouth in the morning. 90 capsule 3 02/02/2023 Active take 1 capsule by [facility] every twenty-four hours Vitamin D3 25 MCG (1000 UT) 1 capsule Orally Once a day Not-Taking/PRN DHEA 50 MG (3 sources) DHEA 50 MG as di rected Orally Not-Taking DHEA 50 MG as di rected Orally Active hydroCHLOROthiazide 50 mg oral tablet (19 sources) Thiazide Diuretic Start: 11-05-2023 End: 12-14-2023 take 1 tablet by mouth once daily Hydrochlorothiazide 50 mg tablet Discontinued 1 TAB PO Daily November 05, 2023 1:00am December 14, 2023 1:40pm FreeTextSi Tablet Orally Once a day; Note: Source Status: Not-TakingundefinedPRN; Provider: Manisha Newman ( ) lisinopril 20 mg oral tablet (20 sources) Angiotensin Converting Enzyme Inhibitor Start: 12-26-2023 End: 12-26-2023 take 1 tablet by mouth once daily Lisinopril 20 mg tablet Discontinued 20 MG PO Daily December 26, 2023 12:00am December 26, 2023 9:19am Start: 11-05-2023 End: 12-26-2023 take 0.5 tablet by mouth once daily Lisinopril 40 mg tablet Discontinued 0.5 TAB PO Daily November 05, 2023 1:00am December 26, 2023 9:17am FreeTextSi/2 tablet Orally Once a day; Note: Source Status: Refill; Refills: 3; Qty: 45 tablet; Provider: Manisha Cooper lisinopril 40 MG tablet 1 (one) time each day at the same time Active take 0.5 tablet by m outh once daily Lisinopril 40 MG 1/2 tablet Orally Once a day for 90 days Active losartan potassium 100 mg oral tablet (17 sources) Angiotensin 2 Receptor Luís Start: 11-05-2023 End: 12-14-2023 take 1 tablet by mouth once daily Losartan 100 mg tablet Discontinued 100 MG PO Daily November 05, 2023 1:00am December 14, 2023 1:40pm take 1 tablet by ollie th every twenty-four hours Losartan Potassium 100 MG 1 tablet Orall y Once a day Not-Taking/PRN Potassium gluconate (18 sources) Start: 11-05-2023 End: 12-26-2023 potassium gluconate Disconti nued PO November 05, 2023 12:00am December 26, 2023 7:58am Start: 11-05-2023 End: 12-26-2023 potassium gluconate Disconti nued PO November 05, 2023 1:00am December 26, 2023 8:58am Start: 11-05-2023 potassium gluc brianna Active PO November 05, 2023 1:00am potassium glucon ate 595 mg (99 mg) tablet extended release Active Potassium Glucon ate Not-Taking/PRN Potassium Glucon ate Not-Taking Potassium Glucon ate Active prasterone 50 mg oral capsule (17 sources) Start: 11-05-2023 End: 12-14-2023 Prasterone (Dhea) 50 mg caps ule Discontinued MG PO As Directed November 05, 2023 1:00am December 14, 2023 10:58am FreeTextSig: as directed Orally; Note: Source Status: Not-TakingundefinedPRN; Provider: OTC Start: 11-05-2023 End: 12-14-2023 Prasterone (Dhea) Discontinu ed MG PO As Directed November 05, 2023 1:00am December 14, 2023 10:58am FreeTextSig: as directed Orally; Note: Source Status: Not-Taking\PRN; Provider: OTC dehydroepiandros terone (DHEA) 50 MG tablet Orally Active DHEA 50 MG as di rected Orally [...] Date Documented Da te Episodic/Chronic Abdominal pain (6 sources) Unspecified abdominal pain; Translations: [Abdominal pain, other specified site] Onset: 05-05-2024 05-05-2024 Episodic Chronic kidney disease (1 source) Chronic kidney disease stage 3; Translations: [Stage 3 chronic kidney disease] Onset: 07-17-2022 07-17-2022 Chronic Chronic kidney disease (5 sources) Chronic kidney disease; Translations: [CHRONIC KIDNEY DISEASE STAGE 3A] Onset: 07-20-2022 Diabetes mellitus with complications (6 sources) Type 2 diabetes mellitus with diabetic chronic kidney disease; Translations: [Type 2 diabetes mellitus] Onset: 07-17-2022 Chronic Diabetes mellitus without complication (20 sources) Type 2 diabetes mellitus; Translations: [Type 2 diabetes mellitus without complications] Onset: 12-26-2023 Chronic Disorders of lipid metabolism (3 sources) Mixed hyperlipidemia; Translations: [Mixed hyperlipidemia] Onset: 06-07-2017 11-09-2022 Chronic Essential hypertension (20 sources) Essential (primary) hypertension; Translations: [Essential hypertension] Onset: 07-17-2022 Chronic Genitourinary symptoms and ill-defined conditions (8 sources) Urge incontinence of urine; Translations: [Urge incontinence] Onset: 10-25-2021 07-17-2022 Chronic Genitourinary symptoms and ill-defined conditions (2 sources) Urgent desire to urinate; Translations: [Urgency of urination] Onset: 02-03-2025 Episodic Headache; including migraine (3 sources) Headache; including migraine; Translations: [HEADACHE UNSPECIFIED] Onset: 07-15-2022 Menopausal disorders (1 source) Atrophic vaginitis; Translations: [Postmenopausal atrophic vaginitis] Onset: 03-16-2016 07-17-2022 Chronic Osteoporosis (2 sources) Postmenopausal osteoporosis; Translations: [Age-related osteoporosis without current pathological fracture] 01-09-2025 Chronic Other diseases of bladder and urethra (16 sources) Overactive bladder; Translations: [Overactive bladder] 11-05-2023 Chronic Other diseases of bladder and urethra (4 sources) Overactive bladder; Translations: [Overactive bladder] Onset: 12-14-2023 Chronic Other gastrointestinal disorders (17 sources) Constipation; Translations: [Constipation, unspecified] Onset: 02-23-2023 11-05-2023 Episodic Other gastrointestinal disorders (3 sources) Constipation, unspecified; Translations: [Constipation, unspecified] Onset: 02-03-2025 Episodic Other screening for suspected conditions (not mental disorders or infectious disease) (6 sources) Encounter for screening mammogram for malignant neoplasm of breast; Translations: [Patient encounter status] Onset: 02-06-2023 Episodic Other skin disorders (4 sources) Eruption; Translations: [Rash and other nonspecific skin eruption] 01-12-2025 Episodic Prolapse of female genital organs (6 sources) Cystocele; Translations: [Cystocele, unspecified] Onset: 10-25-2021 07-17-2022 Chronic Residual codes; unclassified (1 source) Family history of malignant neoplasm of breast; Translations: [FAMILY HX MALIG NEOPLASM OF BREAST] Onset: 02-07-2023 Episodic Residual codes; unclassified (1 source) Family history of malignant neoplasm of other organs or systems; Translations: [FAM HX MALIG NEOPLASM OTH ORGN/SYS] Onset: 02-07-2023 Episodic Residual codes; unclassified (17 sources) Memory impairment; Translations: [Other amnesia] 11-05-2023 Episodic Residual codes; unclassified (12 sources) Age-associated memory impairment; Translations: [Other amnesia] 11-05-2023 Episodic Residual codes; unclassified (2 sources) Postmenopausal state; Translations: [Asymptomatic menopausal state] 01-09-2025 Episodic Spondylosis; intervertebral disc disorders; other back problems (1 source) Degeneration of cervical intervertebral disc; Translations: [Other cervical disc degeneration, unspecified cervical region] Onset: 03-21-2018 07-17-2022 Chronic Thyroid disorders (20 sources) Hypothyroidism, unspecified; Translations: [Hypothyroidism] Onset: 07-17-2022 Chronic Past or Other Problems Problem Classification Problem Date Documented Da te Episodic/Chronic Conditions associated with dizziness or vertigo (2 sources) Dizziness and giddiness; Translations: [Benign paroxysmal positional vertigo] Onset: 11-16-2022 Episodic E Codes: Fall (1 source) Unspecified fall, initial encounter; Translations: [UNSPECIFIED FALL INITIAL ENCOUNTER] Onset: 07-18-2022 Episodic Fluid and electrolyte disorders (1 source) Hypokalemia; Translations: [Hypokalemia] Onset: 07-17-2022 07-17-2022 Episodic Mood disorders (1 source) Mood disorders Onset: 02-23-2023 02-23-2023 Nausea and vomiting (1 source) Nausea with vomiting, unspecified; Translations: [NAUSEA WITH VOMITING UNSPECIFIED] Onset: 07-24-2022 Episodic Other injuries and conditions due to external causes (1 source) Other specified injuries of head, initial encounter; Translations: [OTH SPEC INJURIES HEAD INITIAL ENC] Onset: 07-18-2022 Episodic Other lower respiratory disease (1 source) Chronic cough; Translations: [Chronic cough] Onset: 02-14-2018 07-17-2022 Episodic Other non-traumatic joint disorders (1 source) [...] Test Name Value Interpretation Reference Range Facility Ambulatory Visit Summaryon 0 02-03-2025 Ambulatory Visit Summary Ambulatory Visit Summary NILSA XIONG :1945 Visit Date:02/03/2025 Ambulatory Visit Instructions Your Diagnosis Urge incontinence Cystocele, midline Your Care Team Attending Physician - Sherry Roth PA-C Primary Care Physician - PATY DYER DO Referring Physician - ZEB LUZ MD This Is Your Medications List amlodipine (amLODIPine 10 mg Tab) cinnamon (cinnamon 500 mg oral capsule) docusate (docusate sodium 100 mg Cap) levothyroxine (Synthroid 75 mcg Tab) liothyronine (liothyronine 5 mcg Tab) lovastatin (lovastatin 40 mg Tab) lovastatin (lovastatin 40 mg Tab) meclizine (meclizine 12.5 mg Tab) metformin (metformin 500 mg Tab) multivitamin with minerals omega-3 polyunsaturated fatty acids ([place]-3 Fish Oil) potassium chloride (potassium chloride 99 mg oral tablet) Discharge Vitals Temperature (Oral) 36.5 ???C Heart Rate (Peripheral) 86 Respiratory Rate 16 Blood Pressure 136/54 Height 160.9 cm Height 63 in Weight 54.4 kg Weight 119.931 lb BMI 21.01 What to do next Scheduled Follow-Up Appointments Sunday 12:30 PM EDT With: Sherry Roth PA-C Where: [facility] [address] [id number]- Medications What How Much When Instructions Unchanged amlodipine (amLODIPine 10 mg Tab) 1 Tablets By Mouth Every day Unchanged cinnamon (cinnamon 500 mg oral capsule) 2 Capsules By Mouth 2 times a day Unchanged docusate (docusate sodium 100 mg Cap) 1 Capsules By Mouth 2 times a day as needed for for constipation Unchanged levothyroxine (Synthroid 75 mcg Tab) 1 Tablets By Mouth Every day Unchanged liothyronine (liothyronine 5 mcg Tab) 1 Tablets By Mouth Every day Unchanged lovastatin (lovastatin 40 mg Tab) 1 Tablets By Mouth Every day Unchanged lovastatin (lovastatin 40 mg Tab) 1 Tablets By Mouth Every day Unchanged meclizine (meclizine 12.5 mg Tab) 1 Tablets By Mouth 3 times a day as needed for for dizziness Unchanged metformin (metformin 500 mg Tab) 1 Tablets By Mouth 2 times a day Unchanged multivitamin with minerals Unchanged omega-3 polyunsaturated fatty acids ([place]-3 Fish Oil) By Mouth 3 times a day Unchanged potassium chloride (potassium chloride 99 mg oral tablet) 1 Tablets By Mouth Every day Allergies No Known Allergies Problems Ongoing - Any problem that you are currently receiving treatment for. Cystocele, midline Urge incontinence Patient Survey You may receive a survey via text or e-mail asking about your office visit. Please share your experience with us by completing your survey. We appreciate your feedback and thank you for choosing us for your care. Education Materials Urinary Incontinence Urinary incontinence refers to a condition in which a person is unable to control where and when to pass urine. A person with this condition will urinate involuntarily. This means that the person urinates when he or she does not mean to. What are the causes? This condition may be caused by: ??? Medicines. ??? Infections. ??? Constipation. ??? Overactive bladder muscles. ??? Weak bladder muscles. ??? Weak pelvic floor muscles. These muscles provide support for the bladder, intestine, and, in women, the uterus. ??? Enlarged prostate in men. The prostate is a gland near the bladder. When it gets too big, it can pinch the urethra. With the urethra blocked, the bladder can weaken and lose the ability to empty properly. ??? Surgery. ??? Emotional factors, such as anxiety, stress, or post-traumatic stress disorder (PTSD). ??? Spinal cord injury, nerve injury, or other neurological conditions. ??? Pelvic organ prolapse. This happens in women when organs move out of place and into the vagina. This movement can prevent the bladder and urethra from working properly. What increases the risk? The following factors may make you more likely to develop this condition: ??? Age. The older you are, the higher the risk. ??? Obesity. ??? Being physically inactive. ??? and childbirth. ??? Menopause. ??? Diseases that affect the nerves or spinal cord. ??? Long-term, or chronic, coughing. This can increase pressure on the bladder and pelvic floor muscles. What are the signs or symptoms? Symptoms may vary depending on the type of urinary incontinence you have. They include: ??? A sudden urge to urinate, and passing urine involuntarily before you can get to a bathroom (urge incontinence). ??? Suddenly passing urine when doing activities that force urine to pass, such as coughing, laughing, exercising, or sneezing (stress incontinence). ??? Needing to urinate often but urinating only a small amount, or constantly dribbling urine (overflow incontinence). ??? Urinating because you cannot get to the bathroom in time due to a physical d (more content not included)... Normal [facility] Alanine aminotransferase [En zymatic activity/volume] in Serum or PlasmaOrdered By: Paty Dyer on 07-21-2024 ALT [Catalytic activity/Vol] Alanine aminotransferase [Enzymatic activity/volume] in Serum or Plasma 7-52 [facility] Albumin [Mass/volume] in Ser um or Plasma by Bromocresol green (BCG) dye binding methoOrdered By: Paty Dyer 07-21-2024 Albumin BCG dye [Mass/Vol] Albumin [Mass/volume] in Serum or Plasma by Bromocresol green (BCG) dye binding metho 3.5-5.7 [facility] Alkaline phosphatase [Enzyma tic activity/volume] in Serum or PlasmaOrdered By: Paty Dyer 07-21-2024 ALP [Catalytic activity/Vol] Alkaline phosphatase [Enzymatic activity/volume] in Serum or Plasma 34-104 [facility] Aspartate aminotransferase [ Enzymatic activity/volume] in Serum or PlasmaOrdered By: Paty Dyer 07-21-2024 AST [Catalytic activity/Vol] Aspartate aminotransferase [Enzymatic activity/volume] in Serum or Plasma 13-39 [facility] Bilirubin.total [Mass/volume ] in Serum or PlasmaOrdered By: Paty Dyer 07-21-2024 Bilirubin [Mass/Vol] Bilirubin.total [Mass/volume] in Serum or Plasma 0.3-1.0 [facility] Calcium [Mass/volume] in Ser um or PlasmaOrdered By: Paty Dyer 07-21-2024 Calcium [Mass/Vol] Calcium [Mass/volume] in Serum or Plasma 8.6-10.3 [facility] Carbon dioxide, total [Moles /volume] in Serum or PlasmaOrdered By: Paty Dyer on 07-21-2024 CO2 [Moles/Vol] Carbon dioxide, total [Moles/volume] in Serum or Plasma 21.0-31.0 [facility] Chloride [Moles/volume] in S areli or PlasmaOrdered By: Paty Dyer on 07-21-2024 Chloride [Moles/Vol] Chloride [Moles/volume] in Serum or Plasma 98-107 [facility] Comprehensive Metabolic Pane chaitanya 07-21-2024 Albumin [Mass/Vol] 4.5 g/dL Normal 3.5-5.7 [facility] Comment on above: Performed By: #### T SH3 wRFLX, CMP #### [address] Albumin/Globulin [Mass ratio] 1.7 {ratio} Normal [facility] Comment on above: Performed By: #### T SH3 wRFLX, CMP #### [address] ALP [Catalytic activity/Vol] 56 U/L Normal 34-104 [facility] Comment on above: Performed By: #### T SH3 wRFLX, CMP #### [address] ALT [Catalytic activity/Vol] 10 U/L Normal 7-52 [facility] Comment on above: Performed By: #### T SH3 wRFLX, CMP #### [address] Anion gap [Moles/Vol] 12.0 mmol/L Normal 6.0-15.0 [facility] Comment on above: Performed By: #### T SH3 wRFLX, CMP #### [address] AST [Catalytic activity/Vol] 19 U/L Normal 13-39 [facility] Comment on above: Performed By: #### T SH3 wRFLX, CMP #### [place] [address] [place] Bilirubin [Mass/Vol] 0.7 mg/dL Normal 0.3-1.0 [facility] Comment on above: Performed By: #### T SH3 wRFLX, CMP #### [address] Calcium [Mass/Vol] 10.2 mg/dL Normal 8.6-10.3 [facility] Comment on above: Performed By: #### T SH3 wRFLX, CMP #### [address] Chloride [Moles/Vol] 103 mmol/L Normal 98-107 [facility] Comment on above: Performed By: #### T SH3 wRFLX, CMP #### [address] CO2 [Moles/Vol] 30.0 mmol/L Normal 21.0-31.0 [facility] Comment on above: Performed By: #### T SH3 wRFLX, CMP #### [address] Creatinine [Mass/Vol] 1.10 mg/dL Normal 0.60-1.20 [facility] Comment on above: Performed By: #### T SH3 wRFLX, CMP #### [address] GFR/1.73 sq M.predicted MDRD (S/P/Bld) [Vol rate/Area] 50.796 mL/min/{1.73_m2} Normal [facility] Comment on above: Performed By: #### T SH3 wRFLX, CMP #### [address] Globulin (S) [Mass/Vol] 2.7 g/dL Normal [facility] Comment on above: Performed By: #### T SH3 wRFLX, CMP #### [address] Glucose [Mass/Vol] 128 mg/dL High 70-100 [facility] Comment on above: Result Comment: [place] Glucose Reference Range is dependent on time and content of last meal. Glucose of more than 200 mg/dL in a nonstressed, ambulatory subject supports the diagnosis of Diabetes Mellitus. ADA recommended reference range Performed By: #### T SH3 wRFLX, CMP #### [facility] [address] Potassium [Moles/Vol] 4.0 mmol/L Normal 3.5-5.1 [facility] Comment on above: Performed By: #### T SH3 wRFLX, CMP #### [facility] [address] Protein [Mass/Vol] 7.2 g/dL Normal 6.4-8.9 [facility] Comment on above: Performed By: #### T SH3 wRFLX, CMP #### [address] Sodium [Moles/Vol] 141 mmol/L Normal 136-145 [facility] Comment on above: Performed By: #### T SH3 wRFLX, CMP #### [address] Urea nitrogen [Mass/Vol] 12 mg/dL Normal 7-25 [facility] Comment on above: Performed By: #### T SH3 wRFLX, CMP #### [address] Creatinine [Mass/volume] in Serum or PlasmaOrdered By: Paty Dyer on 07-21-2024 Creatinine [Mass/Vol] Creatinine [Mass/volume] in Serum or Plasma 0.60-1.20 [facility] Globulin Calc (S) [Mass/Vol] Ordered By: Paty Dyer on 07-21-2024 Globulin (S) [Mass/Vol] Serum globulin measurement by calculation (mass/volume) [facility] Glucose [Mass/volume] in Ser um or PlasmaOrdered By: Paty Dyer on 07-21-2024 Glucose [Mass/Vol] Glucose [Mass/volume] in Serum or Plasma High 70-100 [facility] Comment on above: ADA recommended refe rence rangeRandom Glucose Reference Range is dependent on time and content of last meal. Glucose of more than 200 mg/dL in a nonstressed, ambulatory subject supports the diagnosis of Diabetes Mellitus. HbA1c HPLC (Bld) [Mass fract ion]on 07-21-2024 HbA1c (Bld) [Mass fraction] Hemoglobin A1c/Hemoglobin.tota l in Blood by HPLC [facility] No Panel InformationOrdered By: Paty Dyer on 07-21-2024 Estimated GFR (CKD-EPI) 50.796 mL/Min [facility] Creatinine Clearance (Chem N/A [facility] Potassium [Moles/volume] in Serum or PlasmaOrdered By: Paty Dyer on 07-21-2024 Potassium [Moles/Vol] Potassium [Moles/volume] in Serum or Plasma 3.5-5.1 [facility] Protein [Mass/volume] in Ser um or PlasmaOrdered By: Paty Dyer on 07-21-2024 Protein [Mass/Vol] Protein [Mass/volume] in Serum or Plasma 6.4-8.9 [facility] Serum or plasma albumin/glob ulin mass ratioOrdered By: Paty Dyer on 07-21-2024 Albumin/Globulin [Mass ratio] Serum or plasma albumin/globulin mass ratio [facility] Serum or plasma anion gap de terminationOrdered By: Paty Dyer on 07-21-2024 Anion gap [Moles/Vol] Serum or plasma anion gap determination 6.0-15.0 [facility] Sodium [Moles/volume] in Ser um or PlasmaOrdered By: Paty yDer on 07-21-2024 Sodium [Moles/Vol] Sodium [Moles/volume] in Serum or Plasma 136-145 [facility] Thyroid Stim Hormone w/Rflxo n 07-21-2024 Thyroid Stim Hormone w/Rflx 0.77 u[iU]/mL Normal 0.45-5.33 [facility] Comment on above: Result Comment: PERF ORMED BY: [place] [address] PATHOLOGIST REAMING MACHINE OPERATOR FOR PLASTIC JOEY ANAND M.D. Performed By: #### T SH3 wRFLX, CMP #### [address] Thyrotropin [Units/volume] i n Serum or PlasmaOrdered By: Paty Dyer on 07-21-2024 TSH Qn Thyrotropin [Units/volume] in Serum or Plasma 0.45-5.33 [facility] Urea nitrogen [Mass/volume] in Serum or PlasmaOrdered By: Paty Dyer on 07-21-2024 Urea nitrogen [Mass/Vol] Urea nitrogen [Mass/volume] in Serum or Plasma 7-25 [facility] Appearance of UrineOrdered B y: Henry Burns on 05-05-2024 Appearance (U) Urine appearance Abnormal Clear [facility] Bacteria [Presence] in Urine by AutomatedOrdered By: Henry Burns on 05-05-2024 Bacteria Auto Ql (U) 1+ [HPF] High None Seen [facility] Bacteria Auto Ql (U) Bacteria [Presence] in Urine by Automated High None Seen [facility] Bilirubin Test strip Ql (U)O rdered By: Henry Burns on 05-05-2024 Bilirubin Ql (U) Negative Negative [facility] Bilirubin Ql (U) Bilirubin.total [Presence] in Urine by Test strip Negative [facility] Color Auto (U)Ordered By: Evon Burns on 05-05-2024 Color (U) Color of Urine by Auto Yellow [facility] Color of Urine by AutoOrdere d By: Henry Burns on 05-05-2024 Color (U) Yellow Normal Yellow [facility] Comment on above: Order Comment: Name Collection Type:: Voided Performed By: #### C UU, ADDONUAPLUS #### [facility] [address] [place] [address] [place] Dipstick and Microscopicon 0 05-05-2024 Bacteria,Urine 1+ High None Seen [facility] Comment on above: Order Comment: Name Collection Type:: Voided Performed By: #### C UU, ADDONUAPLUS #### [facility] [address] [place] [address] [place] Bilirubin,Urine Negative Normal Negative [facility] Comment on above: Order Comment: Name Collection Type:: Voided Performed By: #### C UU, ADDONUAPLUS #### [address] [place] Yeast,Urine 1+ High None Seen [facility] Comment on above: Order Comment: Name Collection Type:: Voided Result Comment: PERF ORMED BY: [place] [address] PATHOLOGIST REAMING MACHINE OPERATOR FOR PLASTIC JOEY NAAND M.D. Performed By: #### C UU, ADDONUAPLUS #### [address] Glucose Ql (U) Normal Normal Normal [facility] Comment on above: Order Comment: Name Collection Type:: Voided Performed By: #### C UU, ADDONUAPLUS #### [place] [address] [place] Hyaline Casts,Urine 50-100 High 0-8 [facility] Comment on above: Order Comment: Name Collection Type:: Voided Performed By: #### C UU, ADDONUAPLUS #### [place] [address] [place] Mucus,Urine Rare Normal [facility] Comment on above: Order Comment: Name Collection Type:: Voided Performed By: #### C UU, ADDONUAPLUS #### [place] [address] [place] Nitrite,Urine Negative Normal Negative [facility] Comment on above: Order Comment: Name Collection Type:: Voided Performed By: #### C UU, ADDONUAPLUS #### [place] [address] [place] Occult Blood,Urine Negative Normal Negative [facility] Comment on above: Order Comment: Name Collection Type:: Voided Result Comment: PERF ORMED BY: [place] [address] PATHOLOGIST REAMING MACHINE OPERATOR FOR P[employer]IC JOEY ANAND M.D. Performed By: #### C UU, ADDONUAPLUS #### [place] [address] [place] Protein,Urine Negative Normal Negative [facility] Comment on above: Order Comment: Name Collection Type:: Voided Performed By: #### C UU, ADDONUAPLUS #### [address] RBC,Urine 1-2 Normal 0-4 [facility] Comment on above: Order Comment: Name Collection Type:: Voided Performed By: #### C UU, ADDONUAPLUS #### [address] Specificy [place],Urine 1.015 Normal 1.001-1.030 [facility] Comment on above: Order Comment: Name Collection Type:: Voided Performed By: #### C UU, ADDONUAPLUS #### [address] Squamous Epithelial Cell,Urine 10-19 High 0-2 [facility] Comment on above: Order Comment: Name Collection Type:: Voided Performed By: #### C UU, ADDONUAPLUS #### [address] Urobilinogen,Urine Normal Normal Normal [facility] Comment on above: Order Comment: Name Collection Type:: Voided Performed By: #### C UU, ADDONUAPLUS #### [address] WBC,Urine 5-9 High 0-4 [facility] Comment on above: Order Comment: Name Collection Type:: Voided Performed By: #### C UU, ADDONUAPLUS #### [address] Epithelial cells.squamous [# /area] in Urine sediment by Automated countOrdered By: Henry Burns on 05-05-2024 Epithelial cells.squamous Auto (Urine sed) [#/Area] 10-19 [HPF] High 0-2 [facility] Epithelial cells.squamous Auto (Urine sed) [#/Area] Epithelial cells.squamous [#/area] in Urine sediment by Automated count High 0-2 [facility] Erythrocytes [#/area] in Uri ne sediment by Automated countOrdered By: Henry Burns on 05-05-2024 RBC Auto (Urine sed) [#/Area] 1-2 [HPF] 0-4 [facility] RBC Auto (Urine sed) [#/Area] Erythrocytes [#/area] in Urine sediment by Automated count 0-4 [facility] Glucose [Mass/volume] in Uri ne by Test stripOrdered By: Henry Burns on 05-05-2024 Glucose Test strip (U) [Mass/Vol] Normal mg/dL Normal [facility] Glucose Test strip (U) [Mass/Vol] Glucose [Mass/volume] in Urine by Test strip Normal [facility] Hemoglobin Test strip Ql (U) Ordered By: Henry Burns on 05-05-2024 Hemoglobin Ql (U) Negative Negative [facility] Hemoglobin Ql (U) Hemoglobin [Presence] in Urine by Test strip Negative [facility] Hyaline casts [#/area] in Ur ine sediment by Automated countOrdered By: Henry Burns on 05-05-2024 Hyaline casts Auto (Urine sed) [#/Area] 50-100 [LPF] High 0-8 [facility] Hyaline casts Auto (Urine sed) [#/Area] Hyaline casts [#/area] in Urine sediment by Automated count High 0-8 [facility] Ketones Test strip Ql (U)Ord ered By: Henry Burns on 05-05-2024 Ketones Ql (U) Ketones [Presence] in Urine by Test strip Negative [facility] Ketones [Presence] in Urine by Test stripOrdered By: Henry Burns on 05-05-2024 Ketones Ql (U) Negative Normal Negative [facility] Comment on above: Order Comment: Name Collection Type:: Voided Performed By: #### C UU, ADDONUAPLUS #### [facility] [address] [place] [address] Leukocyte esterase [Presence ] in Urine by Test stripOrdered By: Henry Burns on 05-05-2024 Leukocyte esterase Test strip Ql (U) 1+ High Negative [facility] Comment on above: Order Comment: Name Collection Type:: Voided Performed By: #### C UU, ADDONUAPLUS #### [facility] [address] [place] [address] [place] Leukocyte esterase Test strip Ql (U) Leukocyte esterase [Presence] in Urine by Test strip High Negative [facility] Leukocytes [#/area] in Urine sediment by Automated countOrdered By: Henry Burns on 05-05-2024 WBC Auto (Urine sed) [#/Area] 5-9 [HPF] High 0-4 [facility] WBC Auto (Urine sed) [#/Area] Leukocytes [#/area] in Urine sediment by Automated count High 0-4 [facility] Mucus [Presence] in Urine by AutomatedOrdered By: Henry Burns on 05-05-2024 Mucus Auto Ql (U) Rare [LPF] [facility] Mucus Auto Ql (U) Mucus [Presence] in Urine by Automated [facility] Nitrite Test strip Ql (U)Ord ered By: Henry Burns on 05-05-2024 Nitrite Ql (U) Negative Negative [facility] Nitrite Ql (U) Nitrite [Presence] in Urine by Test strip Negative [facility] Protein Test strip (U) [Mass /Vol]Ordered By: Henry Burns on 05-05-2024 Protein (U) [Mass/Vol] Negative Negative [facility] Protein (U) [Mass/Vol] Protein [Mass/volume] in Urine by Test strip Negative [facility] Specific gravity Test strip (U) [Rel density]Ordered By: Henry Burns on 05-05-2024 Specific gravity (U) [Rel density] 1.015 1.001-1.030 [facility] Specific gravity (U) [Rel density] Specific gravity of Urine by Test strip 1.001-1.030 [facility] Urine Cultureon 05-05-2024 Bacteria identified Cx Nom (U) 20,000 colonies/ml mixed bacterial skin contaminants 2 Days PERFORMED BY: [facility] [address] [place] [address] PATHOLOGIST REAMING MACHINE OPERATOR FOR PLASTIC JOEY ANAND M.D. Normal [facility] Comment on above: Performed By: #### C UU, ADDONUAPLUS #### [facility] [address] Urine appearanceOrdered By: Henry Burns on 05-05-2024 Appearance (U) Cloudy Critically abnormal Clear [facility] Comment on above: Order Comment: Name Collection Type:: Voided Performed By: #### C UU, ADDJASENUAPLUS #### [address] Urine cultureOrdered By: Trey Burns on 05-05-2024 Bacteria identified Cx Nom (U) Urine culture [facility] Urobilinogen Test strip (U) [Mass/Vol]Ordered By: Henry Burns on 05-05-2024 Urobilinogen (U) [Mass/Vol] Normal mg/dL Normal [facility] Urobilinogen (U) [Mass/Vol] Urobilinogen [Mass/volume] in Urine by Test strip Normal [facility] XR KUBon 05-05-2024 XR KUB [facility] [place] [address] [place] [address] XRay Report Signed Patient: Nilsa Xiong MR#: [id number] : 1945 Acct:[id number] Age/Sex: 78 / F ADM Date: 05/05/24 Loc: [facility] Room: Type: [facility] Attending Dr: Henry Burns STATISTICAL TYPIST Copies to: Henry Burns APRN Ordering Provider: [...] CALCIFICATIONS. Impression dictated by: Moisés Campos Jr., D.OMaxine05/05/2024 3:45 PM Dictation Location: [place] [address] Transcribed By: [facility] 05/05/24 1545 Dictated By: Moisés Campos Jr, DO 05/05/24 1544 Signed By: 05/05/24 1545 Normal [facility] Yeast.budding [Presence] in Urine by Computer assisted methodOrdered By: Henry Burns on 05-05-2024 Yeast.budding Computer assisted Ql (U) 1+ [HPF] High None Seen [facility] Yeast.budding Computer assisted Ql (U) Yeast.budding [Presence] in Urine by Computer assisted method High None Seen [facility] pH Test strip (U)Ordered By: Henry Burns on 05-05-2024 pH (U) pH of Urine by Test strip 5.0-9.0 [facility] pH of Urine by Test stripOrd ered By: Henry Burns on 05-05-2024 pH (U) 5.0 [pH] Normal 5.0-9.0 [facility] Comment on above: Order Comment: Name Collection Type:: Voided Performed By: #### C UU, ADDONUAPLUS #### [facility] [address] [place] [address] HbA1c HPLC (Bld) [Mass fract ion]on 04-18-2024 HbA1c (Bld) [Mass fraction] 6.4 % [facility] Creatinine [Mass/volume] in UrineOrdered By: Paty Dyer on 12-26-2023 Creatinine (U) [Mass/Vol] 121.0 mg/dL [facility] Comment on above: No reference range e stablished MicroAlb Creat Ratio,Uon Creatinine, Urine (Random) 121.0 mg/dL Normal [facility] Comment on above: Result Comment: No r eference range established Performed By: #### U RMACRERAT #### [facility] [address] [place] [address] Microalbumin/Creatinine Ratio Not performed Normal 0.0-30.0 [facility] Comment on above: Result Comment: PERF ORMED BY: [place] [address] PATHOLOGIST REAMING MACHINE OPERATOR FOR PLASTIC JOEY ANAND M.D. Performed By: #### U RMACRERAT #### [address] Microalbumin [Mass/volume] i n UrineOrdered By: Paty Dyer on 12-26-2023 Albumin DL <= 20 mg/L (U) [Mass/Vol] mg/dL Normal 0.0-1.8 [facility] Comment on above: Performed By: #### U RMACRERAT #### [address] Urine microalbumin/creatinin e mass ratioOrdered By: Paty Dyer on 12-26-2023 Albumin/Creatinine DL <= 20 mg/L (U) [Mass ratio] TNP [facility] Comment on above: Test not performed A1C with Estimated Average G chrisn 12-14-2023 Glucose [Mass/Vol] 126 mg/dL Normal [facility] Comment on above: Result Comment: PERF ORMED BY: [place] [address] PATHOLOGIST REAMING MACHINE OPERATOR FOR PLASTIC JOEY ANAND M.D. Performed By: #### T SH3 wRFLX, A1C WT Jose Daniel, CBCNO, CMP #### [place] [address] [place] Alanine aminotransferase [En zymatic activity/volume] in Serum or PlasmaOrdered By: Paty Dyer on 12-14-2023 ALT [Catalytic activity/Vol] 16 U/L Normal 7-52 [facility] Comment on above: Order Comment: NONFA STING. JKW Performed By: #### T SH3 wRFLX, A1C WT Jose Daniel, CBCNO, CMP #### [place] [address] [place] Albumin [Mass/volume] in Ser um or Plasma by Bromocresol green (BCG) dye binding methoOrdered By: Paty Dyre on 12-14-2023 Albumin BCG dye [Mass/Vol] 4.8 g/dL 3.5-5.7 [facility] Alkaline phosphatase [Enzyma tic activity/volume] in Serum or PlasmaOrdered By: Paty Dyer on 12-14-2023 ALP [Catalytic activity/Vol] 52 U/L Normal 34-104 [facility] Comment on above: Order Comment: NONFA STING. JKW Performed By: #### T SH3 wRFLX, A1C WT eA, CBCNO, CMP #### [address] [place] [address] [place] Aspartate aminotransferase [ Enzymatic activity/volume] in Serum or PlasmaOrdered By: Paty Dyer on 12-14-2023 AST [Catalytic activity/Vol] 23 U/L Normal 13-39 [facility] Comment on above: Order Comment: NONFA STING. JKW Performed By: #### T SH3 wRFLX, A1C [facility] eA, CBCNO, CMP #### [facility] [address] Bilirubin.total [Mass/volume ] in Serum or PlasmaOrdered By: Paty Dyer on 12-14-2023 Bilirubin [Mass/Vol] 0.6 mg/dL Normal 0.3-1.0 [facility] Comment on above: Order Comment: NONFA STING. JKW Performed By: #### T SH3 wRFLX, A1C [facility] eA, CBCNO, CMP #### [facility] [address] [place] [address] [place] Calcium [Mass/volume] in Ser um or PlasmaOrdered By: Paty Dyer on 12-14-2023 Calcium [Mass/Vol] 10.0 mg/dL Normal 8.6-10.3 [facility] Comment on above: Order Comment: NONFA STING. JKW Performed By: #### T SH3 wRFLX, A1C [facility] eA, CBCNO, CMP #### [place] [address] [place] Carbon dioxide, total [Moles /volume] in Serum or PlasmaOrdered By: Paty Dyer on 12-14-2023 CO2 [Moles/Vol] 25.3 mmol/L Normal 21.0-31.0 [facility] Comment on above: Order Comment: NONFA STING. JKW Performed By: #### T SH3 wRFLX, A1C [facility] eA, CBCNO, CMP #### [facility] [address] [place] [address] [place] Chloride [Moles/volume] in S areli or PlasmaOrdered By: Paty Dyer on 12-14-2023 Chloride [Moles/Vol] 102 mmol/L Normal 98-107 [facility] Comment on above: Order Comment: NONFA STING. JKW Performed By: #### T SH3 wRFLX, A1C WT eA, CBCNO, CMP #### [facility] [address] Comprehensive Metabolic Pane chaitanya 12-14-2023 Albumin [Mass/Vol] 4.8 g/dL Normal 3.5-5.7 [facility] Comment on above: Order Comment: NONFA STING. JKW Performed By: #### T SH3 wRFLX, A1C WT eA, CBCNO, CMP #### [address] GFR/1.73 sq M.predicted MDRD (S/P/Bld) [Vol rate/Area] 36.692 mL/min/{1.73_m2} Normal [facility] Comment on above: Order Comment: NONFA STING. JKW Performed By: #### T SH3 wRFLX, A1C WT Jose Daniel, CBCNO, CMP #### [address] Creatinine [Mass/volume] in Serum or PlasmaOrdered By: Paty Dyer on 12-14-2023 Creatinine [Mass/Vol] 1.45 mg/dL High 0.60-1.20 [facility] Comment on above: Order Comment: NONFA STING. JKW Performed By: #### T SH3 wRFLX, A1C WT Jose Daniel, CBCNO, CMP #### [address] Erythrocyte distribution wid th [Ratio] by Automated countOrdered By: Paty Dyer on 12-14-2023 Erythrocyte distribution width (RBC) [Ratio] 12.2 % Normal 11.9-15.3 [facility] Comment on above: Performed By: #### T SH3 wRFLX, A1C WT eA, CBCNO, CMP #### [address] Erythrocytes [#/volume] in B lood by Automated countOrdered By: Paty Dyer on 12-14-2023 RBC (Bld) [#/Vol] 3.80 10*6/uL Normal 3.60-5.00 [facility] Comment on above: Performed By: #### T SH3 wRFLX, A1C WT Jose Daniel, BLAYNE, CMP #### [facility] [address] Glucose [Mass/volume] in Ser um or PlasmaOrdered By: Paty Dyer on 12-14-2023 Glucose [Mass/Vol] 177 mg/dL High 70-100 [facility] Comment on above: ADA recommended refe rence rangeRandom Glucose Reference Range is dependent on time and content of last meal. Glucose of more than 200 mg/dL in a nonstressed, ambulatory subject supports the diagnosis of Diabetes Mellitus. Order Comment: NONFA STING. JKW Result Comment: [place] om Glucose Reference Range is dependent on time and content of last meal. Glucose of more than 200 mg/dL in a nonstressed, ambulatory subject supports the diagnosis of Diabetes Mellitus. ADA recommended reference range Performed By: #### T SH3 wRFLX, A1C WT Jose Daniel CBCMARYELLEN, CMP #### [facility] [address] [place] [id number] [facility] Glucose mean value [Mass/vol ume] in Blood Estimated from glycated hemoglobinOrdered By: Paty Dyer on 12-14-2023 Average glucose Estimated from glycated hemoglobin (Bld) [Mass/Vol] 126 mg/dL [facility] Hematocrit [Volume Fraction] of Blood by Automated countOrdered By: Paty Dyer on 12-14-2023 Hematocrit (Bld) [Volume fraction] 37.3 % Normal 34.0-46.4 [facility] Comment on above: Performed By: #### T SH3 wRFLX, A1C WTH BLAYNE Sky, CMP #### [facility] [address] Hemoglobin A1c percentageOrd ered By: Paty Dyer on 12-14-2023 HbA1c (Bld) [Mass fraction] 6.0 % High 4.3-5.6 [facility] Comment on above: Increased risk for d iabetes: 5.7 - 6.4diabetes: >6.4glycemic control for adults with diabetes: <7.0 Result Comment: Incr eased risk for diabetes: 5.7 - 6.4 diabetes: >6.4 glycemic control for adults with diabetes: <7.0 Performed By: #### T SH3 wRFLX, A1C WTH eA, CBCNO, CMP #### [address] Hemoglobin [Mass/volume] in BloodOrdered By: Paty Dyer on 12-14-2023 Hemoglobin (Bld) [Mass/Vol] 12.5 g/dL Normal 11.8-15.4 [facility] Comment on above: Performed By: #### T SH3 wRFLX, A1C WTH eA, CBCNO, CMP #### [address] Hemogram CBC Without Diffon 12-14-2023 Mean Corpuscular HGB Conc 33.7 g/dL Normal 32.0-35.0 [facility] Comment on above: Performed By: #### T SH3 wRFLX, A1C WTH eA, CBCNO, CMP #### [address] WBC (Bld) [#/Vol] 9.1 10*3/uL Normal 3.8-11.6 [facility] Comment on above: Performed By: #### T SH3 wRFLX, A1C WTH eA, CBCNO, CMP #### [address] Leukocytes [#/volume] correc rosmery for nucleated erythrocytes in Blood by Automated counOrdered By: Paty Dyer on 12-14-2023 WBC corrected for nucl RBC Auto (Bld) [#/Vol] 9.1 10*3/uL 3.8-11.6 [facility] MCH [Entitic mass] by Automa rosmery countOrdered By: Paty Dyer on 12-14-2023 MCH (RBC) [Entitic mass] 33.0 pg Normal 24.7-34.3 [facility] Comment on above: Performed By: #### T SH3 wRFLX, A1C WTH eA, CBCNO, CMP #### [place] [address] [place] MCHC Auto (RBC) [Mass/Vol]Or dered By: Paty Dyer on 12-14-2023 MCHC (RBC) [Mass/Vol] 33.7 g/dL 32.0-35.0 [facility] MCV [Entitic volume] by Auto mated countOrdered By: Ptay Dyer on 12-14-2023 MCV (RBC) [Entitic vol] 98.1 fL Normal 80-100 [facility] Comment on above: Performed By: #### T SH3 wRFLX, A1C [facility] eA, CBCNO, CMP #### [facility] [address] No Panel InformationOrdered By: Paty Dyer on 12-14-2023 Estimated GFR (CKD-EPI) 36.692 mL/Min [facility] Creatinine Clearance (Chem N/A [facility] Platelet mean volume [Entiti c volume] in Blood by Automated countOrdered By: Paty Dyer on 12-14-2023 Platelet mean volume (Bld) [Entitic vol] 8.7 fL Normal 6.3-10.7 [facility] Comment on above: Result Comment: PERF ORMED BY: [place] [address] PATHOLOGIST REAMING MACHINE OPERATOR FOR PLASTIC JOEY ANAND M.D. Performed By: #### T SH3 wRFLX, A1C [facility] Jose Daniel, CBCNO, CMP #### [facility] [address] Platelets [#/volume] in Bloo d by Automated countOrdered By: Paty Dyer on 12-14-2023 Platelets (Bld) [#/Vol] 290 10*3/uL Normal 150-450 [facility] Comment on above: Performed By: #### T SH3 NohemyFLX, A1C WT eA, CBCNO, CMP #### [facility] [address] [place] [address] [place] Potassium [Moles/volume] in Serum or PlasmaOrdered By: Paty Dyer on 12-14-2023 Potassium [Moles/Vol] 4.3 mmol/L Normal 3.5-5.1 [facility] Comment on above: Order Comment: NONFA STING. JKW Performed By: #### T SH3 wRFLX, A1C WT eA, CBCNO, CMP #### [facility] [address] Protein [Mass/volume] in Ser um or PlasmaOrdered By: Paty Dyer on 12-14-2023 Protein [Mass/Vol] 7.3 g/dL Normal 6.4-8.9 [facility] Comment on above: Order Comment: NONFA STING. JKW Performed By: #### T SH3 wRFLX, A1C WT eA, CBCNO, CMP #### [facility] [address] Serum globulin measurement b y calculation (mass/volume)Ordered By: Paty Dyer on 12-14-2023 Globulin (S) [Mass/Vol] 2.5 g/dL Normal [facility] Comment on above: Order Comment: NONFA STING. JKW Performed By: #### T SH3 wRFLX, A1C WT eA, CBCNO, CMP #### [facility] [address] [place] [address] Serum or plasma albumin/glob ulin mass ratioOrdered By: Paty Dyer on 12-14-2023 Albumin/Globulin [Mass ratio] 1.9 {ratio} [facility] Comment on above: Order Comment: NONFA STING. JKW Performed By: #### T SH3 wRFLX, A1C WT eA, CBCNO, CMP #### [facility] [address] Serum or plasma anion gap de terminationOrdered By: Paty Dyer on 12-14-2023 Anion gap [Moles/Vol] 16.0 mmol/L High 6.0-15.0 [facility] Comment on above: Order Comment: NONFA STING. JKW Performed By: #### T SH3 wRFLX, A1C WTH eA, CBCNO, CMP #### [facility] [address] [place] [address] [place] Sodium [Moles/volume] in Ser um or PlasmaOrdered By: Paty Dyer on 12-14-2023 Sodium [Moles/Vol] 139 mmol/L Normal 136-145 [facility] Comment on above: Order Comment: NONFA STING. JKW Performed By: #### T SH3 [place], A1C WT BLAYNE Sky, CMP #### [facility] [address] Thyroid Stim Hormone w/Rflxo n 12-14-2023 Thyroid Stim Hormone w/Rflx 0.85 u[iU]/mL Normal 0.45-5.33 [facility] Comment on above: Order Comment: NONFA STING. JKW Result Comment: PERF ORMED BY: [place] [address] PATHOLOGIST REAMING MACHINE OPERATOR FOR PLASTIC JOEY ANAND M.D. Performed By: #### T SH3 [place], A1C WT Jose Daniel CBCMARYELLEN, CMP #### [address] Thyrotropin [Units/volume] i n Serum or PlasmaOrdered By: Paty Dyer on 12-14-2023 TSH Qn 0.85 m[IU]/L 0.45-5.33 [facility] Urea nitrogen [Mass/volume] in Serum or PlasmaOrdered By: Paty Dyer on 12-14-2023 Urea nitrogen [Mass/Vol] 21 mg/dL Normal 7-25 [facility] Comment on above: Order Comment: NONFA STING. JKW Performed By: #### T SH3 wRSHELIA, A1C WT Jose Daniel, CBCMARYELLEN, CMP #### [facility] [address] A1C HEMOGLOBINon 08-14-2023 HbA1c (Bld) [Mass fraction] 6.2 % [facility] Other HbA1c (Bld) [Mass fraction]o n 08-14-2023 A1C HEMOGLOBIN [employer] Other MG MAMM SCREEN 3D KARSTEN CADon 02-06-2023 MG MAMM SCREEN 3D KARSTEN CAD Patient: NILSA XIONGMaxine Exam Date: 02/06/2023 : 1945 Gender:F Ordering : DR. MARIN RASHID D.O. Admission #: [id number] Family : Order #: [id number] CLICK HERE TO VIEW EXAM RADIOLOGY REPORT [...] pancreatic cancer at age 83. LOCATION: [facility] BREAST COMPOSITION: Scattered areas fibroglandular density. FINDINGS: [...] Connell MD on 02/06/2023 at 13:00 Normal [facility] GLYCOHEMOGLOBIN A1Con 2022 ADA RECOMMENDATION SEE BELOW Normal [facility] Comment on above: Result Comment: ADA RECOMMENDED LIMIT 4.0 - 6.0 ADA THERAPEUTIC TARGET < 7.0 ACTION SUGGESTED > 7.0 Performed By: #### V ITCHARLINE, FT4 #### [facility] [address] [address] [address] Demarcus Leija Glucose [Mass/Vol] 137 mg/dL Normal [facility] Comment on above: Performed By: #### V IGLESIA, FT4 #### [facility] [address] [address] [address] Demarcus Leija HbA1c (Bld) [Mass fraction] 6.4 % Critically high 4.5-6.2 [facility] Comment on above: Performed By: #### V ITAD, FT4 #### [facility] [address] [address] [address] Demarcus Leija LIPID PROFILEon 11-10-2022 CHOL-HDL RATIO NORM SEE BELOW Normal [facility] Comment on above: Result Comment: 3.3 - 4.4 LOW RISK 4.4 - 7.1 AVERAGE RISK 7.1 - 11.0 MODERATE RISK >11.0 HIGH RISK Performed By: #### C MP, LIPID #### [facility] [address] [address] [address] Demarcus Leija Cholesterol [Mass/Vol] 140 mg/dL Normal <=200 [facility] Comment on above: Performed By: #### C MP, LIPID #### [facility] [address] [address] [address] Demarcus Leija Cholesterol in HDL [Mass/Vol] 53 mg/dL Normal 40-60 [facility] Comment on above: Performed By: #### C MP, LIPID #### [facility] [address] [address] [address] Demarcus Leija Cholesterol in LDL [Mass/Vol] 72.8 mg/dL Normal [facility] Comment on above: Performed By: #### C MP, LIPID #### [facility] [address] [address] [address] Demarcus Leija Cholesterol.total/Jennifer sterol in HDL [Mass ratio] 2.6 {ratio} Normal [facility] Comment on above: Performed By: #### C MP, LIPID #### [facility] [address] [address] [address] Demarcus Leija HDL NORMAL > or = 60 mg/dl - LOW CARDIOVASCULAR RISK <40 mg/dl - HIGH CARDIOVASCULAR RISK Normal [facility] Comment on above: Performed By: #### C MP, LIPID #### [facility] [address] [address] [address] Demarcus Leija LDL CALC NORMAL SEE BELOW Normal [facility] Comment on above: Result Comment: <100 mg/dl OPTIMAL 100 - 129 mg/dl NEAR OR ABOVE OPTIMAL 130 - 159 mg/dl BORDERLINE HIGH 160 - 189 mg/dl HIGH >190 mg/dl VERY HIGH Performed By: #### C MP, LIPID #### [facility] [address] [address] [address] Demarcus Leija Triglyceride [Mass/Vol] 71 mg/dL Normal <=150 [facility] Comment on above: Performed By: #### C MP, LIPID #### [facility] [address] [address] [address] Demarcus Leija VLDL CALC 14.2 mg/dL Normal [facility] Comment on above: Performed By: #### C MP, LIPID #### [facility] [address] [address] [address] Demarcus Leija MICROALB CREAT RATIO RANDOMo n 11-10-2022 mALB 1.3 mg/L Normal <=30.0 [facility] Comment on above: Performed By: #### M CRR #### [facility] [address] [place] [address] Dr. Demarcus MATAMOROS CR RATIO 12.1 mg/g Normal 0.0-29.9 [facility] Comment on above: Performed By: #### M CRR #### [facility] [address] [place] [address] Dr. Demarcus Leija MALB CR RATIO RANGE SEE BELOW Normal [facility] Comment on above: Result Comment: NO M ICROALBUMINURIA 0-29 MG/G CLINICAL MICROALBUMINURIA 30-300 MG/G MACROALBUMINURIA >300 MG/G Performed By: #### M CRR #### [facility] [address] [address] [address] Demarcus Leija URINE CREAT 107.52 mg/dL Normal 20.00-300.00 [facility] Comment on above: Performed By: #### M CRR #### [facility] [address] [place] [address] Dr. Demarcus Leija PROF 14(COMP METB)on 023 Albumin [Mass/Vol] 4.1 g/dL Normal 3.4-5.0 [facility] Comment on above: Performed By: #### V ITCHARLINE, FT4 #### [facility] [address] [address] [address] Demarcus Leija Albumin/Globulin [Mass ratio] 1.2 {ratio} Normal [facility] Comment on above: Performed By: #### V IGLESIA, FT4 #### [facility] [address] [address] [address] Demarcus Leija ALP [Catalytic activity/Vol] 75 U/L Normal 46-116 [facility] Comment on above: Performed By: #### V IGLESIA, FT4 #### [facility] [address] [place] [address] Dr. Demarcus Leija ALT [Catalytic activity/Vol] 24 U/L Normal 14-59 [facility] Comment on above: Performed By: #### V IGLESIA, FT4 #### [facility] [address] [place] [address] Dr. Demarcus Leija Anion gap [Moles/Vol] 14.1 mmol/L Normal [facility] Comment on above: Performed By: #### [place] PAREKH, FT4 #### [facility] [address] [place] [address] Dr. Demarcus Leija AST [Catalytic activity/Vol] 22 U/L Normal 15-37 [facility] Comment on above: Performed By: #### V IGLESIA, FT4 #### [facility] [address] [place] [address] Dr. Demarcus Leija Bilirubin [Mass/Vol] 0.5 mg/dL Normal 0.2-1.0 [facility] Comment on above: Performed By: #### V IGLESIA, FT4 #### [facility] [address] [place] [address] Dr. Demarcus Leija Calcium [Mass/Vol] 9.7 mg/dL Normal 8.5-10.1 [facility] Comment on above: Performed By: #### V IGLESIA, FT4 #### [facility] [address] [place] [address] Dr. Demarcus Leija Chloride [Moles/Vol] 101 mmol/L Normal 98-107 [facility] Comment on above: Performed By: #### V ITAD, FT4 #### [facility] [address] [address] [address] Demarcus Leija CO2 [Moles/Vol] 27.3 mmol/L Normal 21.0-32.0 [facility] Comment on above: Performed By: #### V ITAD, FT4 #### [facility] [address] [address] [address] Demarcus Leija Creatinine [Mass/Vol] 1.08 mg/dL Critically high 0.55-1.02 [facility] Comment on above: Performed By: #### V ITAD, FT4 #### [facility] [address] [address] [address] Demarcus Leija EGFR-AF BOTSWANAN 59 mL/min/1.73m2 Critically low >=60 [facility] Comment on above: Performed By: #### V ITAD, FT4 #### [facility] [address] [place] [address] Dr. Demarcus Leija EGFR-NON AF BOTSWANAN 49 mL/min/1.73m2 Critically low >=60 [facility] Comment on above: Performed By: #### V ITAD, FT4 #### [facility] [address] [address] [address] Demarcus Leija Globulin (S) [Mass/Vol] 3.4 g/dL Normal [facility] Comment on above: Performed By: #### V ITAD, FT4 #### [facility] [address] [address] [address] Demarcus Lejia Glucose [Mass/Vol] 189 mg/dL Critically high 74-106 [facility] Comment on above: Performed By: #### V ITAD, FT4 #### [facility] [address] [address] [address] Demarcus Leija Potassium [Moles/Vol] 4.4 mmol/L Normal 3.5-5.1 [facility] Comment on above: Performed By: #### V ITAD, FT4 #### [facility] [address] [address] [address] Demarcus Leija Protein [Mass/Vol] 7.5 g/dL Normal 6.4-8.2 [facility] Comment on above: Performed By: #### V ITAD, FT4 #### [facility] [address] [place] [address] Dr. Demarcus Leija Sodium [Moles/Vol] 138 mmol/L Normal 136-145 [facility] Comment on above: Performed By: #### V ITAD, FT4 #### [facility] [address] [place] [address] Dr. Demarcus Leija Urea nitrogen [Mass/Vol] 18.0 mg/dL Normal 7.0-18.0 [facility] Comment on above: Performed By: #### V ITCHARLINE, FT4 #### [facility] [address] [place] [address] Dr. Demarcus Leija Urea nitrogen/Creatinine [Mass ratio] 16.7 mg/mg Normal [facility] Comment on above: Performed By: #### V ITAD, FT4 #### [facility] [address] [place] [address] Dr. Demarcus Leija PTH INTACTon 07-21-2022 PTH, Intact 14 pg/mL Critically low 15-65 [facility] Comment on above: Performed By: #### P THINT #### [facility] [address] [place] [address] Dr. Demarcus Leija AMYLASEon 07-20-2022 Amylase [Catalytic activity/Vol] 53 U/L Normal 25-115 [facility] Comment on above: Performed By: #### V ITAD, FT4 #### [facility] [address] [place] [address] Dr. Demarcus Leija CBC AUTO DIFFon 07-20-2022 BASO # 0.0 103/ul Normal 0.0-0.1 [facility] Comment on above: Performed By: #### C BC #### [facility] [address] [place] [address] Dr. Demarcus Leija Basophils/100 WBC (Bld) 0.7 % Normal 0.2-2.0 [facility] Comment on above: Performed By: #### C BC #### [facility] [address] [place] [address] Dr. Demarcus Leija EO # 0.1 103/ul Normal 0.0-0.7 [facility] Comment on above: Performed By: #### C BC #### [facility] [address] [place] [address] Dr. Demarcus Leija Eosinophils/100 WBC (Bld) 0.8 % Critically low 0.9-7.0 [facility] Comment on above: Performed By: #### C BC #### [facility] [address] [place] [address] Dr. Demarcus Leija Erythrocyte distribution width (RBC) [Ratio] 12.3 % Normal 11.0-15.0 [facility] Comment on above: Performed By: #### C BC #### [facility] [address] [place] [address] Dr. Demarcus Leija Hematocrit (Bld) [Volume fraction] 38.4 % Normal 36.0-48.0 [facility] Comment on above: Performed By: #### C BC #### [facility] [address] [place] [address] Dr. Demarcus Leija Hemoglobin (Bld) [Mass/Vol] 13.2 g/dL Normal 12.0-16.0 [facility] Comment on above: Performed By: #### C BC #### [facility] [address] [place] [address] Dr. Demarcus Leija IG # 0.01 10e3/ul Normal 0.00-0.03 [facility] Comment on above: Performed By: #### C BC #### [facility] [address] [place] [address] Dr. Demarcus Leija IG % 0.2 % Normal 0.0-0.5 [facility] Comment on above: Performed By: #### C BC #### [facility] [address] [place] [address] Dr. Demarcus Leija LYMPH # 2.1 103/ul Normal 1.2-3.8 [facility] Comment on above: Performed By: #### C BC #### [facility] [address] [place] [address] Dr. Demarcus Leija Lymphocytes/100 WBC (Bld) 36.0 % Normal 20.5-60.0 [facility] Comment on above: Performed By: #### C BC #### [facility] [address] [place] [address] Dr. Demarcus Leija MANUAL DIFF REQ NO Normal [facility] Comment on above: Performed By: #### C BC #### [facility] [address] [place] [address] Dr. Demarcus Leija MCH (RBC) [Entitic mass] 32.7 pg Normal 26.7-34.0 [facility] Comment on above: Performed By: #### C BC #### [facility] [address] [place] [address] Dr. Demarcus Leija MCHC (RBC) [Mass/Vol] 34.4 g/dL Normal 29.9-35.2 [facility] Comment on above: Performed By: #### C BC #### [facility] [address] [place] [address] Dr. Demarcus Leija MCV (RBC) [Entitic vol] 95.0 fL Normal 81.0-99.0 [facility] Comment on above: Performed By: #### C BC #### [facility] [address] [place] [address] Dr. Demarcus Leija MONO # 0.7 103/ul Normal 0.3-0.8 [facility] Comment on above: Performed By: #### C BC #### [facility] [address] [place] [address] Dr. Demarcus Leija Monocytes/100 WBC (Bld) 11.2 % Normal 1.7-12.0 [facility] Comment on above: Performed By: #### C BC #### [facility] [address] [place] [address] Dr. Demarcus Leija NEUT # 3.0 103/ul Normal 1.4-6.5 [facility] Comment on above: Performed By: #### C BC #### [facility] [address] [place] [address] Dr. Demarcus Leija Neutrophils/100 WBC (Bld) 51.1 % Normal 43.0-75.0 [facility] Comment on above: Performed By: #### C BC #### [facility] [address] [place] [address] Dr. Demarcus Leija Platelet mean volume (Bld) [Entitic vol] 10.3 fL Normal 9.5-13.5 [facility] Comment on above: Performed By: #### C BC #### [facility] [address] [place] [address] Dr. Demarcus Leija PLT 284 103/ul Normal 150-450 [facility] Comment on above: Performed By: #### C BC #### [facility] [address] [place] [address] Dr. Demarcus Leija RBC 4.04 106/ul Critically low 4.20-5.40 [facility] Comment on above: Performed By: #### C BC #### [facility] [address] [place] [address] Dr. Demarcus Leija WBC 5.9 103/ul Normal 4.0-11.0 [facility] Comment on above: Performed By: #### C BC #### [facility] [address] [place] [address] Dr. Demarcus Leija FREE T4on 07-20-2022 Free T4 [Mass/Vol] 1.43 ng/dL Normal 0.76-1.46 [facility] Comment on above: Performed By: #### V IGLESIA, FT4 #### [facility] [address] [place] [address] Dr. Demarcus Leija GLYCOHEMOGLOBIN A1Con 2021 ADA RECOMMENDATION SEE BELOW Normal [facility] Comment on above: Result Comment: ADA RECOMMENDED LIMIT 4.0 - 6.0 ADA THERAPEUTIC TARGET < 7.0 ACTION SUGGESTED > 7.0 Performed By: #### V IGLESIA, FT4 #### [facility] [address] [place] [address] Dr. Demarcus Leija Glucose [Mass/Vol] 114 mg/dL Normal [facility] Comment on above: Performed By: #### V IGLESIA, FT4 #### [facility] [address] [place] [address] Dr. Demarcus Leija HbA1c (Bld) [Mass fraction] 5.6 % Normal 4.5-6.2 [facility] Comment on above: Performed By: #### V ITAD, FT4 #### [facility] [address] [place] [address] Dr. Demarcus Leija LIPASEon 07-20-2022 Lipase [Catalytic activity/Vol] 109.0 U/L Normal 73.0-393.0 [facility] Comment on above: Performed By: #### V ITAD, FT4 #### [facility] [address] [place] [address] Dr. Demarcus Leija MAGNESIUMon 07-20-2022 Magnesium [Mass/Vol] 1.6 mg/dL Critically low 1.8-2.4 [facility] Comment on above: Performed By: #### V ITAD, FT4 #### [facility] [address] [place] [address] Dr. Demarcus Leija PHOSPHORUSon 07-20-2022 Phosphate [Mass/Vol] 4.5 mg/dL Normal 2.6-4.7 [facility] Comment on above: Performed By: #### V ITAD, FT4 #### [facility] [address] [place] [address] Dr. Demarcus Leija PROF CHEM 8 (BAS METB)on Anion gap [Moles/Vol] 14.0 mmol/L Normal [facility] Comment on above: Performed By: #### V ITAD, FT4 #### [facility] [address] [place] [address] Dr. Demarcus Leija Calcium [Mass/Vol] 9.9 mg/dL Normal 8.5-10.1 [facility] Comment on above: Performed By: #### V ITAD, FT4 #### [facility] [address] [place] [address] Dr. Demarcus Leija Chloride [Moles/Vol] 99 mmol/L Normal 98-107 [facility] Comment on above: Performed By: #### V ITAD, FT4 #### [facility] [address] [address] [address] Demarcus Leija CO2 [Moles/Vol] 26.5 mmol/L Normal 21.0-32.0 [facility] Comment on above: Performed By: #### V ITAD, FT4 #### [facility] [address] [address] [address] Demarcus Leija Creatinine [Mass/Vol] 1.06 mg/dL Critically high 0.55-1.02 [facility] Comment on above: Performed By: #### V ITAD, FT4 #### [facility] [address] [address] [address] Demarcus Leija EGFR-AF BOTSWANAN >60 Normal >=60 [facility] Comment on above: Performed By: #### V ITAD, FT4 #### [facility] [address] [place] [address] Dr. Demarcus Leija EGFR-NON AF BOTSWANAN 50 mL/min/1.73m2 Critically low >=60 [facility] Comment on above: Performed By: #### V ITAD, FT4 #### [facility] [address] [address] [address] Demarcus Leija Glucose [Mass/Vol] 128 mg/dL Critically high 74-106 T [facility] Comment on above: Performed By: #### V ITAD, FT4 #### [facility] [address] [address] [address] Demarcus Leija Potassium [Moles/Vol] 4.5 mmol/L Normal 3.5-5.1 [facility] Comment on above: Performed By: #### V ITAD, FT4 #### [facility] [address] [address] [address] Demarcus Leija Sodium [Moles/Vol] 135 mmol/L Critically low 136-145 Th [facility] Comment on above: Performed By: #### V ITAD, FT4 #### [facility] [address] [address] [address] Demarcus Leija Urea nitrogen [Mass/Vol] 26.0 mg/dL Critically high 7.0-18.0 [facility] Comment on above: Performed By: #### V ITAD, FT4 #### [facility] [address] [place] [address] Dr. Demarcus Leija Urea nitrogen/Creatinine [Mass ratio] 24.5 mg/mg Normal [facility] Comment on above: Performed By: #### V ITAD, FT4 #### [facility] [address] [place] [address] Dr. Demarcus Leija TSHon 07-20-2022 TSH 0.748 uIU/mL Normal 0.358-3.740 [facility] Comment on above: Performed By: #### V ITAD, FT4 #### [facility] [address] [place] [address] Dr. Demarcus Leija URIC ACID SERUMon 07-20-2022 Urate [Mass/Vol] 4.9 mg/dL Normal 2.6-6.0 [facility] Comment on above: Performed By: #### V ITAD, FT4 #### [facility] [address] [place] [address] Dr. Demarcus Leija VITAMIN D 25 OHon 07-20-2022 VIT D 25-OH 67.4 ng/mL Normal [facility] Comment on above: Performed By: #### V ITAD, FT4 #### [facility] [address] [place] [address] Dr. Demarcus Leija VIT D RANGES SEE BELOW Normal [facility] Comment on above: Result Comment: <20 ng/mL Vit D deficient 20 - <30 ng/mL Vit D insufficient 30 - 100 ng/mL Vit D sufficient >100 ng/mL Potential Toxicity Performed By: #### V ITAD, FT4 #### [facility] [address] [place] [address] CSPINE WO CONon [...] BECKY CLIFTON Date: 2022-07-15 14:42 Normal [facility] CT HEAD WO CONon 07-15-2022 CT HEAD [...] BECKY CLIFTON Date: 2022-07-15 14:36 Normal [facility] CT TSPINE WO CONon 2 CT TSPINE WO CON CT THORACIC SPINE WITHOUT CONTRAST. HISTORY: [...] BECKY CLIFTON Date: 2022-07-15 14:44 Normal [facility] XR SHOULDER KARSTEN 2V or >on XR [...] BECKY CLIFTON Date: 2022-07-15 14:47 Normal [facility] COMPREHENSIVE METABOLIC PANE Chaitanya 01-26-2022 Albumin [Mass/Vol] 4.4 g/dL Normal 3.6-5.1 [facility] Comment on above: Performed By: #### 1 0231, 7600, 496 #### [facility] [place] [address] [employer]: Keven Shukla MD Albumin/Globulin [Mass ratio] 1.9 {ratio} Normal 1.0-2.5 [facility] Comment on above: Performed By: #### 1 0231, 0, 496 #### [facility] [place] [address] [employer]worker: Keven Shukla MD ALP [Catalytic activity/Vol] 50 U/L Normal 37-153 [facility] Comment on above: Performed By: #### 1 0231, 7600, 496 #### [facility] [place] [address] [employer] Farmworker: Keven Shukla MD ALT [Catalytic activity/Vol] 20 U/L Normal 6-29 [facility] Comment on above: Performed By: #### 1 0231, 7600, 496 #### [facility] [place] [address] General [employer] Farmworker: Keven Shukla MD AST [Catalytic activity/Vol] 21 U/L Normal 10-35 [facility] Comment on above: Performed By: #### 1 0231, 7600, 496 #### [facility] [address], [address] [place] [address] General [employer] Farmworker: Keven Shukla MD Bilirubin [Mass/Vol] 0.5 mg/dL Normal 0.2-1.2 [facility] Comment on above: Performed By: #### 1 0231, 7600, 496 #### [facility] [place] [address] [employer] Farmworker: Keven Shukla MD Calcium [Mass/Vol] 10.3 mg/dL Normal 8.6-10.4 [facility] Comment on above: Performed By: #### 1 023, 0, 496 #### [facility] [place] [address] [employer] Farmworker: Keven Shukla MD Chloride [Moles/Vol] 106 mmol/L Normal 98-110 [facility] Comment on above: Performed By: #### 1 023, 0, 496 #### [facility] [place] [address] [employer] Farmworker: Keven Shukla MD CO2 [Moles/Vol] 24 mmol/L Normal 20-32 [facility] Comment on above: Performed By: #### 1 0231, 7600, 496 #### [facility] [place] [address] [employer] Farmworker: Keven Shukla MD Creatinine [Mass/Vol] 1.06 mg/dL High 0.60-0.[address] [facility] Comment on above: Result Comment: For patients >49 years of age, the reference limit for Creatinine is approximately 13% higher for people identified as -Albanian. Performed By: #### 1 0231, 7600, 496 #### [facility] [place] [address] [employer] Farmworker: Keven Shukla MD eGFR NON-AFR. BOTSWANAN 51 mL/min/1.73m2 Low > OR = 60 [facility] Comment on above: Performed By: #### 1 0231, 7600, 496 #### [facility] of [address], [address] [place] [address] General [employer] Farmworker: Keven Shukla MD GFR/1.73 sq M.predicted among blacks MDRD (S/P/Bld) [Vol rate/Area] 59 mL/min/{1.73_m2} Low > OR = 60 [facility] Comment on above: Performed By: #### 1 0231, 7600, 496 #### [facility] [place] [address] [employer]worker: Keven Shukla MD Globulin (S) [Mass/Vol] 2.3 g/dL Normal 1.9-3.7 [facility] Comment on above: Performed By: #### 1 0231, 7600, 496 #### [facility] [place] [address] [employer] Farmworker: Keven Shukla MD Glucose [Mass/Vol] 56 mg/dL Low 65-99 [facility] Comment on above: Result Comment: Fasting reference interval Performed By: #### 1 0231, 7600, 496 #### [facility] [place] [address] General [employer] Farmworker: Keven Shukla MD Potassium [Moles/Vol] 4.4 mmol/L Normal 3.5-5.[address] [facility] Comment on above: Performed By: #### 1 0231, 7600, 496 #### [facility] [place] [address] [employer] Farmworker: Keven Shukla MD Protein [Mass/Vol] 6.7 g/dL Normal 6.1-8.1 [facility] Comment on above: Performed By: #### 1 0231, 7600, 496 #### [facility] [address], [address] [place] [address] General [employer] Farmworker: Keven Shukla MD Sodium [Moles/Vol] 142 mmol/L Normal 135-146 [facility] Comment on above: Performed By: #### 1 0231, 7600, 496 #### [facility] [address], [address] [place] [address] General [employer] Farmworker: Keven Shukla MD Urea nitrogen [Mass/Vol] 25 mg/dL Normal 7-25 [facility] Comment on above: Performed By: #### 1 0231, 7600, 496 #### [facility] [address], [address] [place] [address] General [employer] Farmworker: Keven Shukla MD Urea nitrogen/Creatinine [Mass ratio] 24 mg/mg High 6-22 [facility] Comment on above: Performed By: #### 1 0231, 7600, 496 #### [facility] [address], [address] [place] [address] General [employer] Farmworker: Keven Shukla MD HEMOGLOBIN A1con 01-26-2022 HEMOGLOBIN [...] Performed By: #### 7 18, 6399, 622, 36910, 79921, 905, 72834, 62823 #### [facility] [address], [address] [place] [address] [employer] Farmworker: Keven Shukla MD LIPID PANEL, STANDARDon 01-08 Cholesterol [Mass/Vol] 109 mg/dL Normal <200 [facility] Comment on above: Order Comment: FASTI NG:YES FASTING: YES Performed By: #### 1 0231, 7600, 496 #### [facility] [address], [address] [place] [address] General [employer] Farmworker: Keven Shukla MD Cholesterol in HDL [Mass/Vol] 36 mg/dL Low > OR = 50 [facility] Comment on above: Order Comment: FASTI NG:YES FASTING: YES Performed By: #### 1 0231, 7600, 496 #### [facility] [address], [address] [place] [address] General [employer] Farmworker: Keven Shukla MD Cholesterol in LDL [Mass/Vol] [...] LDL-C. Srinivas SS et al. TEJ. 2013;310(19): 7399-8543 (http://education.Metacafe/faq/ASK260) Performed By: #### 1 0231, 7600, 496 #### [facility] [address], [address] [place] [address] General [employer] Farmworker: Keven Shukla MD Cholesterol.total/Jennifer sterol in HDL [Mass ratio] 3.0 {ratio} Normal <5.0 [facility] Comment on above: Order Comment: FASTI NG:YES FASTING: YES Performed By: #### 1 0231, 7600, 496 #### [facility] [place] [address] General [employer] Farmworker: Keven Shukla MD NON HDL CHOLESTEROL 73 mg/dL (calc) Normal <130 [facility] Comment on above: Order Comment: FASTI NG:YES FASTING: YES Result Comment: For patients with diabetes plus 1 major ASCVD risk factor, treating to a non-HDL-C goal of <100 mg/dL (LDL-C of <70 mg/dL) is considered a therapeutic option. Performed By: #### 1 0231, 7600, 496 #### [facility] [address], [address] [place] [address] General [employer] Farmworker: Keven Shukla MD Triglyceride [Mass/Vol] 94 mg/dL Normal <150 [facility] Comment on above: Order Comment: FASTI NG:YES FASTING: YES Performed By: #### 1 0231, 7600, 496 #### [facility] [place] [address] [employer] Farmworker: Keven Shukla MD BASIC METABOLIC PANELon 07-11 Calcium [Mass/Vol] 10.2 mg/dL Normal 8.6-10.4 [facility] Comment on above: Performed By: #### 7 18, 6399, 622, 17816, 13512, 905, 65895, 96998 #### [facility] [address], [address] [place] [address] General [employer] Farmworker: Keven Shukla MD Chloride [Moles/Vol] 102 mmol/L Normal 98-110 [facility] Comment on above: Performed By: #### 7 18, 6399, 622, 37314, 55705, 905, 75073, 69715 #### [facility] [place] [address] General Ii Farmworker: Keven Shukla MD CO2 [Moles/Vol] 27 mmol/L Normal 20-32 [facility] Comment on above: Performed By: #### 7 18, 6399, 622, 69836, 20467, 905, 81555, 74483 #### [facility] [place] [address] General I[employer] Farmworker: Keven Shukla MD Creatinine [Mass/Vol] 1.02 mg/dL High 0.60-0.[address] [facility] Comment on above: Result Comment: For patients >49 years of age, the reference limit for Creatinine is approximately 13% higher for people identified as -Albanian. Performed By: #### 7 18, 6399, 622, 80300, 84020, 905, 28794, 50548 #### [facility] [address], [address] [place] [address] General I[employer] Farmworker: Keven Shukla MD eGFR NON-AFR. BOTSWANAN 53 mL/min/1.73m2 Low > OR = 60 [facility] Comment on above: Performed By: #### 7 18, 6399, 622, 37550, 50902, 905, 03663, 98707 #### [facility] [address], [address] [place] [address] General Ii Farmworker: Keven Shukla MD GFR/1.73 sq M.predicted among blacks MDRD (S/P/Bld) [Vol rate/Area] 61 mL/min/{1.73_m2} Normal > OR = 60 [facility] Comment on above: Performed By: #### 7 18, 6399, 622, 61231, 16663, 905, 30579, 07309 #### [facility] [address], [address] [place] [address] General Ii Farmworker: Keven Shukla MD Glucose [Mass/Vol] 108 mg/dL High 65-99 [facility] Comment on above: Result Comment: Fasting reference interval For someone without known diabetes, a glucose value between 100 and 125 mg/dL is consistent with prediabetes and should be confirmed with a follow-up test. Performed By: #### 7 18, 6399, 622, 13196, 93115, 905, 72433, 27824 #### [facility] [address], [address] [place] [address] General Ii Farmworker: Keven Shukla MD Potassium [Moles/Vol] 4.6 mmol/L Normal 3.5-5.[address] [facility] Comment on above: Performed By: #### 7 18, 6399, 622, 11540, 15054, 905, 62523, 63622 #### [facility] [address], [address] [place] [address] General Ii Farmworker: Keven Shukla MD Sodium [Moles/Vol] 139 mmol/L Normal 135-146 [facility] Comment on above: Performed By: #### 7 18, 6399, 622, 98908, 85155, 905, 06967, 48077 #### [facility] of [address], [address] [place] [address] General Ii Farmworker: Keven Shukla MD Urea nitrogen [Mass/Vol] 16 mg/dL Normal 7-25 [facility] Comment on above: Performed By: #### 7 18, 6399, 622, 59982, 22691, 905, 72552, 84738 #### [facility] [place] [address] General Ii Farmworker: Keven Shukla MD Urea nitrogen/Creatinine [Mass ratio] 16 mg/mg Normal 6-22 [facility] Comment on above: Performed By: #### 7 18, 6399, 622, 30605, 09437, 905, 20985, 54783 #### [facility] [place] [address] General Ii Farmworker: Keven Shukla MD CBC (INCLUDES DIFF/PLT)on Basophils (Bld) [#/Vol] 0.038 10*3/uL Normal 0-200 [facility] Comment on above: Performed By: #### 7 18, 6399, 622, 97724, 82867, 905, 23346, 51314 #### [facility] [place] [address] General Ii Farmworker: Keven Shukla MD Basophils/100 WBC (Bld) 0.5 % Normal [facility] Comment on above: Performed By: #### 7 18, 6399, 622, 21931, 23677, 905, 47789, 15896 #### [facility] [place] [address] General Ii Farmworker: Keven Shukla MD Eosinophils (Bld) [#/Vol] 0.106 10*3/uL Normal 15-500 [facility] Comment on above: Performed By: #### 7 18, 6399, 622, 70457, 78718, 905, 08459, 87207 #### [facility] of [address], [address] [place] [address] General Ii Farmworker: Keven Shukla MD Eosinophils/100 WBC (Bld) 1.4 % Normal [facility] Comment on above: Performed By: #### 7 18, 6399, 622, 67979, 43813, 905, 79808, 29940 #### [facility] [place] [address] General Ii Farmworker: Keven Shukla MD Erythrocyte distribution width (RBC) [Ratio] 12.0 % Normal 11.0-15.0 [facility] Comment on above: Performed By: #### 7 18, 6399, 622, 28987, 89111, 905, 18172, 87433 #### [facility] [place] [address] General Ii Farmworker: Keven Shukla MD Hematocrit (Bld) [Volume fraction] 38.5 % Normal 35.0-45.0 [facility] Comment on above: Performed By: #### 7 18, 6399, 622, 40489, 65407, 905, 03857, 23904 #### [facility] [place] [address] General Ii Farmworker: Keven Shukla MD Hemoglobin (Bld) [Mass/Vol] 13.3 g/dL Normal 11.7-15.5 [facility] Comment on above: Performed By: #### 7 18, 6399, 622, 57411, 07145, 905, 53783, 58334 #### [facility] [place] [address] General Ii Farmworker: Keven Shukla MD Lymphocytes (Bld) [#/Vol] 1.87 10*3/uL Normal 850-3900 [facility] Comment on above: Performed By: #### 7 18, 6399, 622, 22948, 93050, 905, 03289, 46374 #### [facility] [place] [address] General Ii Farmworker: Kveen Shukla MD Lymphocytes/100 WBC (Bld) 24.6 % Normal [facility] Comment on above: Performed By: #### 7 18, 6399, 622, 54429, 95167, 905, 45323, 70843 #### [facility] [place] [address] General Ii Farmworker: Keven Shukla MD MCH (RBC) [Entitic mass] 33.7 pg High 27.0-33.0 [facility] Comment on above: Performed By: #### 7 18, 6399, 622, 62959, 49221, 905, 36599, 39835 #### [facility] [place] [address] General Ii Farmworker: Keven Shukla MD MCHC (RBC) [Mass/Vol] 34.5 g/dL Normal 32.0-36.[address] [facility] Comment on above: Performed By: #### 7 18, 6399, 622, 36975, 70342, 905, 17918, 95139 #### [facility] [place] [address] General Ii Farmworker: Keven Shukla MD MCV (RBC) [Entitic vol] 97.5 fL Normal 80.0-100.0 [facility] Comment on above: Performed By: #### 7 18, 6399, 622, 18927, 52496, 905, 28575, 14777 #### [facility] [place] [address] General Ii Farmworker: Keven Shukla MD Monocytes (Bld) [#/Vol] 0.768 10*3/uL Normal 200-950 [facility] Comment on above: Performed By: #### 7 18, 6399, 622, 09972, 86490, 905, 21309, 60773 #### [facility] of [address], [address] [place] [address] General Ii Farmworker: Keven Shukla MD Monocytes/100 WBC (Bld) 10.1 % Normal [facility] Comment on above: Performed By: #### 7 18, 6399, 622, 62004, 80647, 905, 54096, 30834 #### [facility] of [address], [address] [place] [address] General Ii Farmworker: Keven Shukla MD Neutrophils (Bld) [#/Vol] 4.818 10*3/uL Normal 3217-0685 [facility] Comment on above: Performed By: #### 7 18, 6399, 622, 08890, 04914, 905, 94263, 66599 #### [facility] [place] [address] General Ii Farmworker: Keven Shukla MD Neutrophils/100 WBC (Bld) 63.4 % Normal [facility] Comment on above: Performed By: #### 7 18, 6399, 622, 12616, 10788, 905, 91459, 54900 #### [facility] [place] [address] General Ii Farmworker: Keven Shukla MD Platelet mean volume (Bld) [Entitic vol] 11.2 fL Normal 7.5-12.5 [facility] Comment on above: Performed By: #### 7 18, 6399, 622, 11362, 14566, 905, 97686, 00465 #### [facility] [place] [address] General Ii Farmworker: Keven Shukla MD Platelets (Bld) [#/Vol] 285 10*3/uL Normal 140-400 [facility] Comment on above: Performed By: #### 7 18, 6399, 622, 22061, 15574, 905, 12358, 97472 #### [facility] [address] [place] [address] General Ii Farmworker: Keven Shukla MD RBC (Bld) [#/Vol] 3.95 10*6/uL Normal 3.80-5.10 [facility] Comment on above: Performed By: #### 7 18, 6399, 622, 97535, 82653, 905, 68775, 54425 #### [facility] [address], [address] [place] [address] General Ii Farmworker: Keven Shukla MD WBC (Bld) [#/Vol] 7.6 10*3/uL Normal 3.8-10.8 [facility] Comment on above: Performed By: #### 7 18, 6399, 622, 82959, 06338, 905, 98962, 55310 #### [facility] [place] [address] General Ii Farmworker: Keven Shukla MD MAGNESIUMon 07-26-2021 Magnesium [Mass/Vol] 1.4 mg/dL Low 1.5-2.5 [facility] Comment on above: Performed By: #### 7 18, 6399, 622, 03004, 66519, 905, 95220, 74725 #### [facility] [place] [address] General Ii Farmworker: Keven Shukla MD PHOSPHATE ( PHOSPHORUS)on 07-26-2021 Phosphate [Mass/Vol] 4.2 mg/dL Normal 2.1-4.3 [facility] Comment on above: Performed By: #### 7 18, 6399, 622, 68993, 81474, 905, 72471, 08981 #### [facility] [place] [address] General Ii Farmworker: Keven Shukla MD PTH, INTACT WITHOUT CALCIUMo [...] Performed By: #### 7 18, 6399, 622, 47359, 77111, 905, 90289, 84982 #### [facility] [address], [address] [place] [address] General Ii Farmworker: Keven Shukla MD TSH+FREE T4on 07-26-2021 Free T4 [Mass/Vol] 1.4 ng/dL Normal 0.8-1.8 [facility] Comment on above: Order Comment: FASTI NG:UNKNOWN FASTING: UNKNOWN Performed By: #### 7 18, 6399, 622, 63076, 77231, 905, 91266, 41139 #### [facility] [place] [address] General Ii Farmworker: Keven Shukla MD TSH Qn 1.43 m[IU]/L Normal 0.40-4.50 [facility] Comment on above: Order Comment: FASTI NG:UNKNOWN FASTING: UNKNOWN Performed By: #### 7 18, 6399, 622, 18066, 08012, 905, 31695, 69288 #### [facility] [place] [address] General Ii Farmworker: Keven Shukla MD URIC ACIDon 07-26-2021 Urate [Mass/Vol] 4.5 mg/dL Normal 2.5-7.0 [facility] Comment on above: Result Comment: Ther apeutic target for gout patients: <6.0 mg/dL Performed By: #### 7 18, 6399, 622, 11784, 20300, 905, 06861, 99559 #### [facility] [address], [address] [place] [address] General Ii Farmworker: Keven Shukla MD VITAMIN D,25-OH,TOTAL,IAon 1 09-25-2020 [...] D, (D2,D3), LC/MS/MS is recommended: order code 14138 (patients >2yrs). See Note 1 Note 1 For additional information, please refer to http://education.ESBATech.Wheeldo/faq/QXG391 (This link is being provided for informational/ educational purposes only.) Performed By: #### 7 18, 6399, 622, 36392, 04233, 905, 83699, 95444 #### [facility] [address], [address] [place] [address] General [employer] Farmworker: Keven Shukla MD Vital Signs Date Time Vital Sign Value Performing Clinician Facility 01-19-2025 13:06-0400 Body height 160.02 cm [facility] 01-19-2025 13:06-0400 Body mass index (BMI) [Ratio] 20.7 kg/m2 [facility] 01-19-2025 13:06-0400 Body weight 53.12 kg [facility] 01-19-2025 13:06-0400 Diastolic blood pressure 64 mm[Hg] [facility] 01-19-2025 13:06-0400 Heart rate 81 /min [facility] 01-19-2025 13:06-0400 Respiratory rate 18 /min [facility] 01-19-2025 13:06-0400 SaO2% (BldA) [Mass fraction] 99 % [facility] 01-19-2025 13:06-0400 Systolic blood pressure 132 mm[Hg] [facility] 01-12-2025 14:30-0400 Body mass index (BMI) [Ratio] 21.95 kg/m2 Zeb Luz MD Work Phone: [facility] 01-12-2025 14:30-0400 Body weight 54.43 kg Zeb Luz MD Work Phone: [facility] 01-12-2025 14:30-0400 Diastolic blood pressure 62 mm[Hg] Zeb Luz MD Work Phone: [facility] 01-12-2025 14:30-0400 Systolic blood pressure 112 mm[Hg] Zeb Luz MD Work Phone: [facility] 07-21-2024 13:07-0500 Body height 160.02 cm Paty Dyer DO Work Phone: [facility] 07-21-2024 13:07-0500 Body mass index (BMI) [Ratio] 20.9 kg/m2 Paty Dyer DO Work Phone: [facility] 07-21-2024 13:07-0500 Body weight 53.75 kg Paty Dyer DO Work Phone: [facility] 07-21-2024 13:07-0500 Diastolic blood pressure 64 mm[Hg] Paty Dyer DO Work Phone: [facility] 07-21-2024 13:07-0500 Heart rate 82 /min Paty Dyer DO Work Phone: [facility] 07-21-2024 13:07-0500 Respiratory rate 18 /min Paty Dyer DO Work Phone: [facility] 07-21-2024 13:07-0500 SaO2% (BldA) [Mass fraction] 98 % Paty Dyer DO Work Phone: [facility] 07-21-2024 13:07-0500 Systolic blood pressure 110 mm[Hg] Paty Dyer DO Work Phone: [facility] 05-05-2024 13:42-0400 Body height 160.02 cm [facility] 05-05-2024 13:42-0400 Body mass index (BMI) [Ratio] 21.6 kg/m2 [facility] 05-05-2024 13:42-0400 Body weight 55.33 kg [facility] 05-05-2024 13:42-0400 Diastolic blood pressure 78 mm[Hg] [facility] 05-05-2024 13:42-0400 Heart rate 72 /min [facility] 05-05-2024 13:42-0400 Systolic blood pressure 128 mm[Hg] [facility] 04-18-2024 11:06-0400 Body height 160.02 cm [facility] 04-18-2024 11:06-0400 Body mass index (BMI) [Ratio] 20.9 kg/m2 [facility] 04-18-2024 11:06-0400 Body weight 53.52 kg [facility] 04-18-2024 11:06-0400 Diastolic blood pressure 58 mm[Hg] [facility] 04-18-2024 11:06-0400 Heart rate 80 /min [facility] 04-18-2024 11:06-0400 Respiratory rate 18 /min [facility] 04-18-2024 11:06-0400 SaO2% (BldA) [Mass fraction] 98 % [facility] 04-18-2024 11:06-0400 Systolic blood pressure 126 mm[Hg] [facility] 12-26-2023 08:40-0400 Body height 160.02 cm DO Paty Dyer Work Phone: [facility] 12-26-2023 08:40-0400 Body mass index (BMI) [Ratio] 21.2 kg/m2 DO Paty Dyer Work Phone: [facility] 12-26-2023 08:40-0400 Body weight 54.43 kg DO Paty Brickfish Work Phone: [facility] 12-26-2023 08:40-0400 Diastolic blood pressure 56 mm[Hg] DO Paty Dyer Work Phone: [facility] 12-26-2023 08:40-0400 Heart rate 83 /min DO Paty Dyer Work Phone: [facility] 12-26-2023 08:40-0400 Respiratory rate 18 /min DO Paty Dyer Work Phone: [facility] 12-26-2023 08:40-0400 SaO2% (BldA) [Mass fraction] 99 % DO Paty Dyer Work Phone: [facility] 12-26-2023 08:40-0400 Systolic blood pressure 128 mm[Hg] DO Paty Dyer Work Phone: [facility] 12-14-2023 10:45-0400 Body height 160.02 cm DO Paty Dyer Work Phone: [facility] 12-14-2023 10:45-0400 Body mass index (BMI) [Ratio] 20.8 kg/m2 DO Paty Dyer Work Phone: [facility] 12-14-2023 10:45-0400 Body weight 53.32 kg DO Paty Dyer Work Phone: [facility] 12-14-2023 10:45-0400 Diastolic blood pressure 70 mm[Hg] DO Paty Dyer Work Phone: [facility] 12-14-2023 10:45-0400 Heart rate 80 /min DO Paty Dyer Work Phone: [facility] 12-14-2023 10:45-0400 Respiratory rate 18 /min DO Paty Dyer Work Phone: [facility] 12-14-2023 10:45-0400 SaO2% (BldA) [Mass fraction] 99 % DO Paty Dyer Work Phone: [facility] 12-14-2023 10:45-0400 Systolic blood pressure 104 mm[Hg] DO Paty Dyer Work Phone: [facility] 11-05-2023 11:46-0500 Body height 160.02 cm DO Paty Dyer Work Phone: [facility] 11-05-2023 11:46-0500 Body mass index (BMI) [Ratio] 21.4 kg/m2 DO Paty Dyer Work Phone: [facility] 11-05-2023 11:46-0500 Body weight 55.05 kg DO Paty Dyer Work Phone: [facility] 11-05-2023 11:46-0500 Respiratory rate 18 /min DO Paty Dyer Work Phone: [facility] 08-14-2023 11:45-0500 Body height 160.02 cm Paty Dyer Other [facility] Other 08-14-2023 11:45-0500 Body mass index (BMI) [Ratio] 21.45 kg/m2 Paty Dyer Other [facility] Other 08-14-2023 11:45-0500 Body weight 54.93 kg Paty Dyer Other [facility] Other 08-14-2023 11:45-0500 Diastolic blood pressure 62 mm[Hg] Patyvanita Dyer Other [facility] Other 08-14-2023 11:45-0500 Respiratory rate 18 /min Paty Dyer Other [facility] Other 08-14-2023 11:45-0500 SaO2% (BldA) [Mass fraction] 99 % Patyvanita Dyer Other [facility] Other 12-05-2023 11:45-0500 Systolic blood pressure 118 mm[Hg] Paty Dyer Other [facility] Other 05-15-2023 10:30-0400 Body height 160.02 cm Paty Dyer Other [facility] Other 05-15-2023 10:30-0400 Body mass index (BMI) [Ratio] 21.01 kg/m2 Paty Dyer Other [facility] Other 05-15-2023 10:30-0400 Body weight 53.8 kg Paty Dyer Other [facility] Other 05-15-2023 10:30-0400 Diastolic blood pressure 72 mm[Hg] Paty Dyer Other [facility] Other 05-15-2023 10:30-0400 Respiratory rate 18 /min Paty Dyer Other [facility] Other 05-15-2023 10:30-0400 SaO2% (BldA) [Mass fraction] 98 % Paty Dyer Other [facility] Other 05-15-2023 10:30-0400 Systolic blood pressure 118 mm[Hg] Paty Dyer Other [facility] Other 03-14-2023 11:00-0400 Body height 160.02 cm Paty Dyer Other [facility] Other 03-14-2023 11:00-0400 Body mass index (BMI) [Ratio] 20.42 kg/m2 Paty Dyer Other [facility] Other 03-14-2023 11:00-0400 Body weight 52.3 kg Patyvanita Dyer Other [facility] Other 03-14-2023 11:00-0400 Diastolic blood pressure 58 mm[Hg] Paty Dyer Other [facility] Other 03-14-2023 11:00-0400 Respiratory rate 18 /min Paty Manisha Other [facility] Other 03-14-2023 11:00-0400 SaO2% (BldA) [Mass fraction] 98 % Patyallison Dyer Other [facility] Other 03-14-2023 11:00-0400 Systolic blood pressure 122 mm[Hg] Paty Dyer Other [facility] Other Encounters Encounter Date Encounter Type Care Provider Facility Start: 03-31-2025 ambulatory Sherry Ira Facility:[facility] Start: 02-03-2025 End: 02-03-2025 ambulatory Sherry Ira Facility:[facility] Start: 02-03-2025 End: 02-03-2025 Patient encounter procedure Sherry Beea [facility] Start: 01-27-2025 ambulatory Sherry Ira Facility:[facility] [place] Start: 01-19-2025 End: 01-19-2025 ambulatory [facility] Work Phone: Start: 01-19-2025 End: 01-19-2025 Patient encounter procedure [facility] [place] Work Phone: Start: 01-12-2025 End: 01-12-2025 Office outpatient visit 15 minutes Zeb Luz MD Work Phone: [facility] Comment on above: Rash (Primary Dx); Encounter for screening mammogram for malignant neoplasm of breast; Osteoporosis, post-menopausal (CMS/HCC); Urge incontinence; Cystocele, midline; Rectocele; Post-menopause Start: 01-12-2025 End: 01-12-2025 ambulatory ZEB LUZ Not Available Start: 07-21-2024 End: 07-21-2024 Patient encounter procedure Paty Manisha DALY Work Phone: [facility] Start: 07-21-2024 End: 07-21-2024 ambulatory Paty A Dyer Facility:[facility] Start: 07-21-2024 End: 07-21-2024 ambulatory Paty A Manisha DALY Work Phone: [facility] Work Phone: Start: 07-21-2024 End: 07-21-2024 Patient encounter procedure Paty Manisha DALY Work Phone: [facility] Work Phone: Start: 05-06-2024 End: 05-06-2024 ambulatory DO Paty A Manisha Work Phone: [facility] Work Phone: Start: 05-06-2024 End: 05-06-2024 Patient encounter procedure DO Paty Manisha Work Phone: [facility] Start: 05-05-2024 End: 05-05-2024 ambulatory DO Paty A Manisha Work Phone: [facility] Work Phone: Start: 05-05-2024 End: 05-05-2024 Patient encounter procedure [facility] Work Phone: Start: 04-18-2024 End: 04-18-2024 ambulatory [facility] Work Phone: Start: 04-18-2024 End: 04-18-2024 Patient encounter procedure [facility] Work Phone: Start: 01-16-2024 End: 01-16-2024 Telephone encounter Kathy Coleman [facility] Comment on above: appointment due Start: 12-26-2023 End: 12-26-2023 Patient encounter procedure DO Paty Dyer Work Phone: [facility] Work Phone: Start: 12-26-2023 End: 12-26-2023 ambulatory DO Paty A Dyer Work Phone: [facility] Work Phone: Start: 12-19-2023 Non-patient / Non-visit DO Yojana vanita Dyer Work Phone: [facility] Work Phone: Start: 12-14-2023 End: 12-14-2023 Patient encounter procedure DO Paty Dyer Work Phone: [facility] Start: 12-14-2023 End: 12-14-2023 ambulatory DO Paty A Dyer Work Phone: [facility] Work Phone: Start: 12-14-2023 End: 12-14-2023 ambulatory DO Paty A Dyer Work Phone: [facility] Work Phone: Start: 12-14-2023 End: 12-14-2023 Patient encounter procedure DO Paty Dyer Work Phone: [facility] Work Phone: Start: 11-23-2023 End: 11-23-2023 Patient encounter procedure DO Paty Manisha Work Phone: [facility] Start: 11-23-2023 End: 11-23-2023 ambulatory DO Paty Allison Dyer Work Phone: [facility] Work Phone: Start: 11-05-2023 End: 11-05-2023 Patient encounter procedure DO Paty Manisha Work Phone: [facility] [place] Work Phone: Start: 10-22-2023 End: 10-22-2023 ambulatory Paty Dyer Other [facility] Other Start: 10-22-2023 Telephone encounter Paty Dyer [facility] [place] Start: 09-11-2023 End: 09-11-2023 ambulatory Paty Dyer Other [facility] Other Start: 09-11-2023 Telephone encounter Paty Manisha [facility] [place] Start: 08-14-2023 End: 08-14-2023 ambulatory Paty Dyer Other [facility] Other Start: 08-14-2023 Office outpatient vi sit 25 minutes Paty Dyer [facility] [place] Start: 05-15-2023 End: 05-15-2023 ambulatory Paty Dyer Other [facility] Other Start: 05-15-2023 Office outpatient vi sit 25 minutes Paty Dyer [facility] [place] Start: 03-14-2023 End: 03-14-2023 ambulatory Paty Dyer Other [facility] Other Start: 03-14-2023 Office outpatient ne w 45 minutes Paty Dyer [facility] [place] Start: 02-06-2023 End: 02-07-[address] JORDAN PANDEY Facility:[facility] Start: 11-10-2022 End: 11-11-[address] JORDAN PANDEY Facility:[facility] Start: 07-20-2022 End: 07-21-[address] JORDAN PANDEY Facility:[facility] Start: 07-15-2022 End: 07-15-2022 ambulatory DESHAUN SANCHEZ . Facility: Procedures Date Procedure Procedure Detail Performing Clinician Start: 05-05-2024 Diagnostic radiograp hy of abdomen DO Paty Dyer Work Phone: Start: 05-05-2024 Urine culture Paty guevara DO Work Phone: Start: 02-23-2023 Adult depression scr eening assessment Kathy Coleman CMA Plan of Treatment Date Care Activity Detail Author Start: 01-18-2026 End: 01-18-2026 Patient encounter procedure 01/18/2026 2:30 PM EDT Office Visit [facility] [address] [place] [id number] Zeb Luz MD [address] [facility] [address] [place] [address] [facility] Start: 01-12-2025 End: 03-14-2026 DBT Breast - bilateral screening Bilateral screening mammogram with tomosynthesis Imaging Routine Encounter for screening mammogram for malignant neoplasm of breast Expected: 01/12/2025, Expires: 03/14/2026 [facility] Work Phone: Comment on above: Expected: 01/12/2025 , Expires: 03/14/2026 Start: 01-12-2025 End: 01-09-2026 DXA Skeletal system Views for bone density DEXA bone density Imaging Routine Osteoporosis, post-menopausal ([facility]/HCC) Expected: 01/12/2025, Expires: 01/09/2026 [facility] Comment on above: Expected: 01/12/2025 , Expires: 01/09/2026 Start: 05-11-2024 Influenza vaccination Influenza Vacc ine [facility] Start: 05-05-2024 Bacteria identified in Urine by Culture [facility] Start: 02-24-2024 Adult BMI Screening Adult BMI Screen ing [facility] Start: 02-24-2024 Depression Screening Depression Scre ening [facility] Start: 02-24-2024 Tobacco Screening Tobacco Screening [facility] Start: 01-31-2024 Fall Risk Screening Fall Risk Screen ing [facility] Start: 01-31-2024 Medicare Annual Well ness Visit Medicare Annual Wellness Visit [facility] Start: 12-26-2023 [facility] Start: 12-14-2023 [facility] Start: 11-05-2023 Patient referral [facility] Work Phone: Start: 05-11-2023 COVID-19 Vaccine ( season) COVID-19 Vaccine () [facility] Start: 04-22-2022 DTaP,Tdap and Td Vaccines (2 - Td or Tdap) DTaP,Tdap and Td Vaccines (2 - Td or Tdap) [facility] Comprehensive metabo lic 1999 panel - Serum or Plasma [facility] Comprehensive metabo lic 1999 panel - Serum or Plasma [facility] Diagnostic radiograp hy of abdomen [facility] DXA Skeletal system.axial Views for bone density [facility] Glucose measurement estimated from glycated hemoglobin [facility] MG Breast - bilatera l Screening [facility] Microalbumin [Mass/volume] in Urine [facility] Microalbumin/Creatin ine [Mass Ratio] in Urine [facility] Patient referral [facility] Work Phone: Supine abdominal X-ray [facility] Immunizations Immunization Date Immunization Notes Care Provider Fa ciliroel 08-21-2023 RSV, preF3, adj, pf DO Shaye Dyer Work Phone: [facility] 06-17-2023 COVID-19 Vaccine Pfi zer - Documentation Purposes Only Paty Dyer Other [facility] 06-17-2023 Flu Shot - Documenta tion Purposes Only Paty Dyer Other [facility] 06-22-2022 influenza, seasonal, injectable Paty Dyer Other [facility] 06-22-2022 COVID-19 Pfizer (bivalent) Paty Dyer Other [facility] 06-22-2022 Fluzone QIV High-Dos e 65YR+ DO Paty Dyer Work Phone: [facility] 06-22-2022 influenza virus vacc ine, unspecified formulation Kathy Coleman [facility] 12-21-2021 COVID-19 Pfizer Paty Dyer Other [facility] 07-20-2021 COVID-19 Vaccine Mod marlo - Documentation Purposes Only Paty Dyer Other [facility] 06-20-2021 Fluzone QIV High-Dos e 65YR+ DO Paty Dyer Work Phone: [facility] 05-19-2021 zoster vaccine recombinant Paty Dyer Other [facility] 12-13-2020 zoster vaccine recombinant Paty Dyer Other [facility] 11-10-2020 COVID-19 Vaccine Mod marlo - Documentation Purposes Only Paty Dyer Other [facility] 10-13-2020 COVID-19 Vaccine Mod marlo - Documentation Purposes Only Paty Dyer Other [facility] 06-22-2020 Seasonal, quadrivale nt, recombinant, injectable influenza vaccine, preservative free DO Paty Dyer Work Phone: [facility] 07-09-2018 influenza, high dose seasonal, preservative-free DO Paty Dyer Work Phone: [facility] 06-11-2018 influenza, high dose seasonal, preservative-free DO Paty Dyer Work Phone: [facility] 08-13-2017 influenza, injectabl e, quadrivalent, contains preservative DO Paty Dyer Work Phone: [facility] 06-07-2017 Influenza, injectabl e, Madin [facility] Canine Kidney, preservative free, quadrivalent Akthy [facility] 02-01-2017 pneumococcal polysaccharide vaccine, 23 valent Kathy [facility] 06-13-2016 influenza, seasonal, injectable, preservative free DO Paty Dyer Work Phone: [facility] 05-24-2015 influenza, seasonal, injectable, preservative free Kathy [facility] 11-12-2014 pneumococcal conjuga te vaccine, 13 valent Kathy [facility] 04-22-2012 tetanus toxoid, redu danielle diphtheria toxoid, and acellular pertussis vaccine, adsorbed Kathy [facility] 12-11-2011 zoster vaccine, live Kathy [facility] 06-30-2009 influenza virus vacc ine, whole virus Kathy [facility] 07-10-2007 influenza virus vacc ine, whole virus Kathy [facility] Payers Date Payer Category Payer Medicare [id number] 2023 Self-pay [id number] 2021 Private Health Insurance [id number] 2009 Medicare [id number] 1959 Medicare [id number] 1959 Unknown [id number] 1944 Unknown [id number] 1944 Unknown [id number] 1944 Unknown [id number] 1944 Unknown [id number] 1944 Unknown [id number] 1944 Unknown [id number] 1944 Unknown [id number] Unknown [facility] [id number] Unknown [facility] [id number] Unknown [id number] Unknown [id number] Unknown [id number] Unknown [id number] Unknown [id number] Unknown [id number] Social History Date Type Detail Facility Unknown if ever smoked [facility] Other Start: 01-30-2023 End: 01-12-2025 [facility] Start: 10-22-2023 End: 02-03-2025 Tobacco smoking status NHIS Never smoked tobacco (finding) [facility] Start: 1945 Sex Assigned At Female [facility] Start: 07-21-2024 End: 01-19-2025 Sex Female (finding) [facility] Start: 07-17-2022 End: 09-05-2023 Tobacco use and exposure Smokeless tobacco non-user [facility] Start: 02-23-2023 Alcoholic beverage intake Lifetime non-drinker (finding) [facility] Start: 01-30-2023 End: 01-12-2025 History of Social function [facility] Do you belong to any clubs or organizations such as moravian groups, unions, fraternal or athletic groups, or school groups? No [facility] Are you now , , , , never or living with a partner? [facility] How often to you hav e a drink containing alcohol? Never [facility] How many standard dr inks containing alcohol do you have on a typical day? Patient does not drink [facility] Do you feel stress - tense, restless, nervous, or anxious, or unable to sleep at night because your mind is troubled all the time - these days [OSQ] Not at all [facility] Start: 1945 [facility] Start: 01-18-2025 Alcoholic beverage intake Current drinker of alcohol (finding) [facility] Start: 09-06-2023 Alcohol Comment caffeine intake : 2-3 cups per day ; coffee [facility] Sexual Orientation [facility] Clinical Notes 03-14-2023 to 02-03-2025 Zeb Luz MD - 01/12/2025 2:00 PM EDT Note Date & Type Note Facility 02-03-2025 Hospital Discharge instructions Patient Education 02/03/2025 13:36:07 Urinary Incontinence Urinary Incontinence Urinary incontinence refers to a condition in which a person is unable to control where and when to pass urine. A person with this condition will urinate involuntarily. This means that the person urinates when he or she does not mean to. What are the causes? This condition may be caused by: Medicines. Infections. Constipation. Overactive bladder muscles. Weak bladder muscles. Weak pelvic floor muscles. These muscles provide support for the bladder, intestine, and, in women, the uterus. Enlarged prostate in men. The prostate is a gland near the bladder. When it gets too big, it can pinch the urethra. With the urethra blocked, the bladder can weaken and lose the ability to empty properly. Surgery. Emotional factors, such as anxiety, stress, or post-traumatic stress disorder (PTSD). Spinal cord injury, nerve injury, or other neurological conditions. Pelvic organ prolapse. This happens in women when organs move out of place and into the vagina. This movement can prevent the bladder and urethra from working properly. What increases the risk? The following factors may make you more likely to develop this condition: Age. The older you are, the higher the risk. Obesity. Being physically inactive. and childbirth. Menopause. Diseases that affect the nerves or spinal cord. Long-term, or chronic, coughing. This can increase pressure on the bladder and pelvic floor muscles. What are the signs or symptoms? Symptoms may vary depending on the type of urinary incontinence you have. They include: A sudden urge to urinate, and passing urine involuntarily before you can get to a bathroom (urge incontinence). Suddenly passing urine when doing activities that force urine to pass, such as coughing, laughing, exercising, or sneezing (stress incontinence). Needing to urinate often but urinating only a small amount, or constantly dribbling urine (overflow incontinence). Urinating because you cannot get to the bathroom in time due to a physical disability, such as arthritis or injury, or due to a communication or thinking problem, such as Alzheimer's disease (functional incontinence). How is this diagnosed? This condition may be diagnosed based on: Your medical history. A physical exam. Tests, such as: ?Urine tests. ?X-rays of your kidney and bladder. ?Ultrasound. ?CT scan. ?Cystoscopy. In this procedure, a health care provider inserts a tube with a light and camera (cystoscope) through the urethra and into the bladder to check for problems. ?Urodynamic testing. These tests assess how well the bladder, urethra, and sphincter can store and release urine. There are different types of urodynamic tests, and they vary depending on what the test is measuring. To help diagnose your condition, your health care provider may recommend that you keep a log of when you urinate and how much you urinate. How is this treated? Treatment for this condition depends on the type of incontinence that you have and its cause. Treatment may include: Lifestyle changes, such as: ?Quitting smoking. ?Maintaining a healthy weight. ?Staying active. Try to get 150 minutes of moderate-intensity exercise every week. Ask your health care provider which activities are safe for you. ?Eating a healthy diet. ?Avoid high-fat foods, like fried foods. ?Avoid refined carbohydrates like white bread and white rice. ?Limit how much alcohol and caffeine you drink. ?Increase your fiber intake. Healthy sources of fiber include beans, whole grains, and fresh fruits and vegetables. Behavioral changes, such as: ?Pelvic floor muscle exercises. ?Bladder training, such as lengthening the amount of time between bathroom breaks, or using the bathroom at regular intervals. ?Using techniques to suppress bladder urges. This can include distraction techniques or controlled breathing exercises. Medicines, such as: ?Medicines to relax the bladder muscles and prevent bladder spasms. ?Medicines to help slow or prevent the growth of a man's prostate. ?Botox injections. These can help relax the bladder muscles. Treatments, such as: ?Using pulses of electricity to help change bladder reflexes (electrical nerve stimulation). ?For women, using a medical records coder to prevent urine leaks. This is a small, tampon-like, disposable device that is inserted into the urethra. ?Injecting collagen or carbon beads (bulking agents) into the urinary sphincter. These can help thicken tissue and close the bladder opening. ?Surgery. Follow these instructions at home: Lifestyle Limit alcohol and caffeine. These can fill your bladder quickly and irritate it. Keep yourself clean to help prevent odors and skin damage. Ask your health care provider about special skin creams and cleansers that can protect the skin from urine. Consider wearing pads or adult diapers. Make sure to change them regularly, and always change them right after experiencing incontinence. General instructions Take lsdx-zri-mmbenfp and prescription medicines only as told by your health care provider. Use the bathroom about every 3 4 hours, even if you do not feel the need to urinate. Try to empty your bladder completely every time. After urinating, wait a minute. Then try to urinate again. Make sure you are in a relaxed position while urinating. If your incontinence is caused by nerve problems, keep a log of the medicines you take and the times you go to the bathroom. Keep all follow-up visits. This is important. Where to find more information National [place] of [employer] and Digestive and Kidney Diseases: www.niddk.nih.gov [place] [employer]: www.urologyhealth.org Contact a health care provider if: You have pain that gets worse. Your incontinence gets worse. Get help right away if: You have a fever or chills. You are unable to urinate. You have redness in your groin area or down your legs. Summary Urinary incontinence refers to a condition in which a person is unable to control where and when to pass urine. This condition may be caused by medicines, infection, weak bladder muscles, weak pelvic floor muscles, enlargement of the prostate (in men), or surgery. Factors such as older age, obesity, and childbirth, menopause, neurological diseases, and chronic coughing may increase your risk for developing this condition. Types of urinary incontinence include urge incontinence, stress incontinence, overflow incontinence, and functional incontinence. This condition is usually treated first with lifestyle and behavioral changes, such as quitting smoking, eating a healthier diet, and doing regular pelvic floor exercises. Other treatment options include medicines, bulking agents, medical devices, electrical nerve stimulation, or surgery. This information is not intended to replace advice given to you by your health care provider. Make sure you discuss any questions you have with your health care provider. Document Revised: 04/01/2021 Document Reviewed: 04/01/2021 [employer] Patient Education 2023 [employer]. 02/03/2025 13:36:06 Overactive Bladder, Adult Overactive Bladder, Adult Overactive bladder is a condition in which a person has a sudden and frequent need to urinate. A person might also leak urine if he or she cannot get to the bathroom fast enough (urinary incontinence). Sometimes, symptoms can interfere with work or social activities. What are the causes? Overactive bladder is associated with poor nerve signals between your bladder and your brain. Your bladder may get the signal to empty before it is full. You may also have very sensitive muscles that make your bladder squeeze too soon. This condition may also be caused by other factors, such as: Medical conditions: ?Urinary tract infection. ?Infection of nearby tissues. ?Prostate enlargement. ?Bladder stones, inflammation, or tumors. ?Diabetes. ?Muscle or nerve weakness, especially from these conditions: ?A spinal cord injury. ?Stroke. ?Multiple sclerosis. ?Parkinson's disease. Other causes: ?Surgery on the uterus or urethra. ?Drinking too much caffeine or alcohol. ?Certain medicines, especially those that eliminate extra fluid in the body (diuretics). ?Constipation. What increases the risk? You may be at greater risk for overactive bladder if you: Are an older adult. Smoke. Are going through menopause. Have prostate problems. Have a neurological disease, such as stroke, dementia, Parkinson's disease, or multiple sclerosis (MS). Eat or drink alcohol, spicy food, caffeine, and other things that irritate the bladder. Are overweight or obese. What are the signs or symptoms? Symptoms of this condition include a sudden, strong urge to urinate. Other symptoms include: Leaking urine. Urinating 8 or more times a day. Waking up to urinate 2 or more times overnight. How is this diagnosed? This condition may be diagnosed based on: Your symptoms and medical history. A physical exam. Blood or urine tests to check for possible causes, such as infection. You may also need to see a health care provider who specializes in urinary tract problems. This is called a urologist. How is this treated? Treatment for overactive bladder depends on the cause of your condition and whether it is mild or severe. Treatment may include: Bladder training, such as: ?Learning to control the urge to urinate by following a schedule to urinate at regular intervals. ?Doing Kegel exercises to strengthen the pelvic floor muscles that support your bladder. Special devices, such as: ?Biofeedback. This uses sensors to help you become aware of your body's signals. ?Electrical stimulation. This uses electrodes placed inside the body (implanted) or outside the body. These electrodes send gentle pulses of electricity to strengthen the nerves or muscles that control the bladder. ?Women may use a plastic device, called a pessary, that fits into the vagina and supports the bladder. Medicines, such as: ?Antibiotics to treat bladder infection. ?Antispasmodics to stop the bladder from releasing urine at the wrong time. ?Tricyclic antidepressants to relax bladder muscles. ?Injections of botulinum toxin type A directly into the bladder tissue to relax bladder muscles. Surgery, such as: ?A device may be implanted to help manage the nerve signals that control urination. ?An electrode may be implanted to stimulate electrical signals in the bladder. ?A procedure may be done to change the shape of the bladder. This is done only in very severe cases. Follow these instructions at home: Eating and drinking Make diet or lifestyle changes recommended by your health care provider. These may include: ?Drinking fluids throughout the day and not only with meals. ?Cutting down on caffeine or alcohol. ?Eating a healthy and balanced diet to prevent constipation. This may include: ?Choosing foods that are high in fiber, such as beans, whole grains, and fresh fruits and vegetables. ?Limiting foods that are high in fat and processed sugars, such as fried and sweet foods. Lifestyle Lose weight if needed. Do not use any products that contain nicotine or tobacco. These include cigarettes, chewing tobacco, and vaping devices, such as e-cigarettes. If you need help quitting, ask your health care provider. General instructions Take dvdo-tlm-voevbgb and prescription medicines only as told by your health care provider. If you were prescribed an antibiotic medicine, take it as told by your health care provider. Do not stop taking the antibiotic even if you start to feel better. Use any implants or pessary as told by your health care provider. If needed, wear pads to absorb urine leakage. Keep a log to track how much and when you drink, and when you need to urinate. This will help your health care provider monitor your condition. Keep all follow-up visits. This is important. Contact a health care provider if: You have a fever or chills. Your symptoms do not get better with treatment. Your pain and discomfort get worse. You have more frequent urges to urinate. Get help right away if: You are not able to control your bladder. Summary Overactive bladder refers to a condition in which a person has a sudden and frequent need to urinate. Several conditions may lead to an overactive bladder. Treatment for overactive bladder depends on the cause and severity of your condition. Making lifestyle changes, doing Kegel exercises, keeping a log, and taking medicines can help with this condition. This information is not intended to replace advice given to you by your health care provider. Make sure you discuss any questions you have with your health care provider. Document Revised: 05/16/2021 Document Reviewed: 05/16/2021 [employer] Patient Education 2023 WSO2. Follow Up Care 01/27/2025 09:53:00 With:Sherry Roth PA-C, SERA Address: When: Unknown Comments:2 month f/u w/ [facility] 02-03-2025 Note Urology Office/Clini c Note Chief Complaint referral urinary incontinence HPI Staff 79 yr old female referred by Dr Zeb Luz MD for UUI. pt is no longer taking Myrbetriq History of Present Illness I have reviewed and verified the staff HPI to be accurate for this encounter. Review of Systems PHQ Score Initial Depression Screen Score: 0 SCORE no fever, chills, malaise, myalgia. no abdominal pain, nausea, vomiting. Physical Exam Vitals & Measurements T: 36.5 ???C(Oral) HR: 86(Peripheral) RR: 16 BP: 136/54 HT: 160.9 cm HT: 63 in WT: 54.4 kg WT: 119.931 lb BMI: 21.01 General: Well developed, well nourished, in no acute distress. Assessment/Plan 79 y/o female [employer] referred by Zeb Luz MD for urge incontinence Patient accompanied w/ her daughter today who helped to contribute to patient's history 07/21/24 - Cr 1.10, GFR 50.8 1. Urge incontinence (N39.41: Urge incontinence) BBSQ 19 PVR 34 ml today UA today w/ small leuks only. Denies symptoms of infection. Shares she has been experiencing urinary urgency with leakage for many years. She has been taking Myrbetriq 25 mg qd since 2022. Shares she struggles with constipation at baseline, so her PCP (Paty Dyer DO) stopped her Myrbetriq 2 weeks ago to see if patient's constipation would improve. Patient has not noticed improvement in bowel habits or worsening of her urinary sxs since stopping Myrbetriq. Discussed bladder/bowel connection. She shares that her urgency is most bothersome in the morning and she will leak on the way to the bathroom at this time. Otherwise, has occasional UUI during the day. Denies AMOS. Voids every 3 hours. Does not wear pads. She drinks mostly water, but will have coffee and occasional pop daily. Educated pt on bladder irritants. She reports drinking fluids until bedtime. Advised her to limit fluid intake 2 hrs prior to bed to see if this helps w/ morning urgency/UUI. Today, we discussed pathophysiology of overactive bladder/UUI. Discussed behavioral modifications and further treatment options including medications, Botox and SNM. Discussed increasing Myrbetriq dose to 50 mg daily today or trialing a new medication such as Gemtesa. Daughter and pt share that patient has a large supply of Myrbetriq 25 mg ER leftover at home, so she prefers to increase Myrbetriq dosage today to ensure previous prescription does not go to waste. Patient was advised to take two 25 mg tablets to equal new dose of 50 mg qd (verified this is okay by pharmacist). Will send a new script for Myrbetriq 50 mg qd in the meantime. We did also have brief discussion today regarding Botox/SNM but did not go into elaborate detail. Handouts provided. Patient to think about these options. I instructed the patient to contact me immediately if she has any significant side effects, including urinary retention. Discontinue the medication if bothersome SE occur. Patient verbalizes understanding. All questions answered. -Start Myrbetriq 50 mg PO daily. Rx sent. -Increase water intake, avoid bladder irritants -Limit fluid intake 2 hrs prior to bed -Timed voids, double voids -Bowel regimen w/ fiber/stool softeners. Handout provided. -F/U in 2 months w/ PVR, call sooner if needed Ordered: mirabegron, 50 mg = 1 tab(s), Oral, Daily, X 30 day(s), # 30 tab(s), Refills(s) 2, Pharmacy: [id number], 160.9, cm, 02/03/25 13:47:00 EDT, Height/Length Dosing, 54.4, kg, 02/03/25 13:47:00 EDT, Weight Dosing 58604 Measure Post Void residual urine and/or bladder capacity by US- non-imaging Urnls Dip Stick Auto w/o Microscopy POC 12035 2. Urinary urgency (R39.15: Urgency of urination) -See #1 3. Constipation (K59.00: Constipation, unspecified) -See #1 -Bowel regimen w/ fiber/stool softeners. Handout provided. Follow-up With When Contact Information Sherry Roth PA-C, URL Additional Instructions: 2 month f/u w/ PVR Patient Education Urinary Incontinence Overactive Bladder, Adult Problem List/Past Medical History Ongoing Constipation Urge incontinence Urinary urgency Historical No qualifying data Medications amLODIPine 10 mg Tab, 10 mg= 1 tab(s), Oral, Daily cinnamon 500 mg oral capsule, 1000 mg= 2 cap(s), Oral, BID docusate sodium 100 mg Cap, 100 mg= 1 cap(s), Oral, BID, PRN liothyronine 5 mcg Tab, 5 mcg= 1 tab(s), Oral, Daily lovastatin 40 mg Tab, 40 mg= 1 tab(s), Oral, Daily lovastatin 40 mg Tab, 40 mg= 1 tab(s), Oral, Daily meclizine 12.5 mg Tab, 12.5 mg= 1 tab(s), Oral, TID, PRN metformin 500 mg Tab, 500 mg= 1 tab(s), Oral, BID multivitamin with minerals Myrbetriq 50 mg oral tablet, extended release, 50 mg= 1 tab(s), Oral, Daily, 2 refills [place]-3 Fish Oil, Oral, TID potassium chloride 99 mg oral tablet, 99 mg= 1 tab(s), Oral, Daily Synthroid 75 mcg Tab, 75 mcg= 1 tab(s), Oral, Daily Allergies No Known Allergies Social History Alcohol Never, 02/03/2025 Tobacco Never (less than 100 in lifetime) Tobacco Use:. Never Smokeless T (more content not included)... [facility] Comment on above: Result Comment: Elec tronically Signed By: Sherry Roth PA-C\.br\Date and Time Signed: 02/03/25 15:33 EDT 02-03-2025 Note Patient Education Obstetrics and Gynecology Overactive Bladder, Adult Overactive bladder is a condition in which a person has a sudden and frequent need to urinate. A person might also leak urine if he or she cannot get to the bathroom fast enough (urinary incontinence). Sometimes, symptoms can interfere with work or social activities. What are the causes? Overactive bladder is associated with poor nerve signals between your bladder and your brain. Your bladder may get the signal to empty before it is full. You may also have very sensitive muscles that make your bladder squeeze too soon. This condition may also be caused by other factors, such as: ??? Medical conditions: ? Urinary tract infection. ? Infection of nearby tissues. ? Prostate enlargement. ? Bladder stones, inflammation, or tumors. ? Diabetes. ? Muscle or nerve weakness, especially from these conditions: ? A spinal cord injury. ? Stroke. ? Multiple sclerosis. ? Parkinson's disease. ??? Other causes: ? Surgery on the uterus or urethra. ? Drinking too much caffeine or alcohol. ? Certain medicines, especially those that eliminate extra fluid in the body (diuretics). ? Constipation. What increases the risk? You may be at greater risk for overactive bladder if you: ??? Are an older adult. ??? Smoke. ??? Are going through menopause. ??? Have prostate problems. ??? Have a neurological disease, such as stroke, dementia, Parkinson's disease, or multiple sclerosis (MS). ??? Eat or drink alcohol, spicy food, caffeine, and other things that irritate the bladder. ??? Are overweight or obese. What are the signs or symptoms? Symptoms of this condition include a sudden, strong urge to urinate. Other symptoms include: ??? Leaking urine. ??? Urinating 8 or more times a day. ??? Waking up to urinate 2 or more times overnight. How is this diagnosed? This condition may be diagnosed based on: ??? Your symptoms and medical history. ??? A physical exam. ??? Blood or urine tests to check for possible causes, such as infection. You may also need to see a health care provider who specializes in urinary tract problems. This is called a urologist. How is this treated? Treatment for overactive bladder depends on the cause of your condition and whether it is mild or severe. Treatment may include: ??? Bladder training, such as: ? Learning to control the urge to urinate by following a schedule to urinate at regular intervals. ? Doing Kegel exercises to strengthen the pelvic floor muscles that support your bladder. ??? Special devices, such as: ? Biofeedback. This uses sensors to help you become aware of your body's signals. ? Electrical stimulation. This uses electrodes placed inside the body (implanted) or outside the body. These electrodes send gentle pulses of electricity to strengthen the nerves or muscles that control the bladder. ? Women may use a plastic device, called a pessary, that fits into the vagina and supports the bladder. ??? Medicines, such as: ? Antibiotics to treat bladder infection. ? Antispasmodics to stop the bladder from releasing urine at the wrong time. ? Tricyclic antidepressants to relax bladder muscles. ? Injections of botulinum toxin type A directly into the bladder tissue to relax bladder muscles. ??? Surgery, such as: ? A device may be implanted to help manage the nerve signals that control urination. ? An electrode may be implanted to stimulate electrical signals in the bladder. ? A procedure may be done to change the shape of the bladder. This is done only in very severe cases. Follow these instructions at home: Eating and drinking ??? Make diet or lifestyle changes recommended by your health care provider. These may include: ? Drinking fluids throughout the day and not only with meals. ? Cutting down on caffeine or alcohol. ? Eating a healthy and balanced diet to prevent constipation. This may include: ? Choosing foods that are high in fiber, such as beans, whole grains, and fresh fruits and vegetables. ? Limiting foods that are high in fat and processed sugars, such as fried and sweet foods. Lifestyle ??? Lose weight if needed. ??? Do not use any products that contain nicotine or tobacco. These include cigarettes, chewing tobacco, and vaping devices, such as e-cigarettes. If you need help quitting, ask your health care provider. General instructions ??? Take mool-oxm-edeljjx and prescription medicines only as told by your health care provider. ??? If you were prescribed an antibiotic medicine, take it as told by your health care provider. Do not stop taking the antibiotic even if you start to feel better. ??? Use any implants or pessary as told by your health care provider. ??? If needed, wear pads to absorb urine leakage. ??? Keep a log to track how much and when you drink, and whe (more content not included)... [facility] 01-12-2025 History of Present illness Narrative Images from the original note were not included. Zeb Luz MD Obstetrics and Gynecology Patient: Nilsa Xiong : 1945 (79 y.o.) Yearly Wellness Exam Date: 01/12/2025 Reason for Visit - Chief Complaint Patient presents with Gynecologic Exam Patient present for yearly. Patient states she's tried OTC stool softener. Patient states she's on myrbetriq and still has trouble making it to restroom in time. LMP: [employer] Last DEXA: 02/02/22 - Neg Last Mammogram: 02/13/22 - Neg at [place] Last Pap: 08/11/20 - Neg Colonoscopy: 2009 - Neg Complaints: Urgency of urine History of Present Illness The patient,presents with multiple concerns including urinary urgency, facial skin issues, and body rashes. She reports difficulty getting to the bathroom on time, particularly when getting up from bed. The patient has been prescribed Myrbetriq for her urinary symptoms, Regarding her skin concerns,pt mentions having facial skin issues for which she was previously given a topical treatment in a bottle with a sponge applicator . However, she states that this treatment has not been effective. She also reports having rashes on her trunk and other unspecified areas of her body, describing them as sore and really bad. pt mentions having to scratch these rashes, which she finds frustrating. She notes that these skin issues have been present for about a year, becoming noticeable when she started seeing doctors regularly. Pt has a medical history of urinary incontinence. Her current medication includes Myrbetriq. In terms of social history, the patient mentions having a notepad and calendars at home for organization. A review of systems indicates positive findings for skin lesions on trunk and other unspecified areas, as well as itching. The genitourinary system review is positive for urinary urgency, especially when getting up from bed. Visit Vitals BP 112/62 (BP Location: Left arm) Wt 120 lb BMI 21.95 kg/m OB Status Postmenopausal Smoking Status Never BSA 1.54 m History of Present Illness, Associated Treatments and Results - OB History Para Term AB Living 3 3 0 0 0 3 SAB IAB Ectopic Multiple Live Births 0 0 0 0 3 # Outcome Date GA Lbr Tristian/2nd Weight Sex Type Anes PTL Lv 3 Para Vag-Spont 2 Para Vag-Spont 1 Para Vag-Spont Review of Systems - Constitutional: Negative. HENT: Negative. Eyes: Negative. Respiratory: Negative. Cardiovascular: Negative. Gastrointestinal: Negative. Endocrine: Negative. Genitourinary: Negative. Musculoskeletal: Negative. Skin: Negative. Allergic/Immunologic: Negative. Neurological: Negative. Hematological: Negative. Psychiatric/Behavioral: Negative. No Known Allergies Current Outpatient Medications: amLODIPine (Norvasc) 10 MG tablet, 1 (one) time each day at the same time, Disp: , Rfl: cinnamon 500 MG capsule, as directed Orally, Disp: , Rfl: dehydroepiandrosterone (DHEA) 50 MG tablet, Orally, Disp: , Rfl: Docusate Sodium (DSS) 100 MG capsule, 1 (one) time each day at the same time, Disp: , Rfl: glimepiride (Amaryl) 4 MG tablet, every 12 (twelve) hours, Disp: , Rfl: hydroCHLOROthiazide (HYDRODiuril) 50 MG tablet, 1 (one) time each day at the same time, Disp: , Rfl: levothyroxine (Synthroid, Levoxyl) 75 MCG tablet, 1 (one) time each day at the same time, Disp: , Rfl: liothyronine (Cytomel) 5 MCG tablet, 1 tablet on an empty stomach Orally M,W,F, Disp: , Rfl: lisinopril 40 MG tablet, 1 (one) time each day at the same time, Disp: , Rfl: lovastatin (Mevacor) 40 MG tablet, 1 (one) time each day at the same time, Disp: , Rfl: metFORMIN (Glucophage) 1000 MG tablet, every 12 (twelve) hours, Disp: , Rfl: omega-3 (Fish Oil) 1000 MG capsule, 1 capsule 1 (one) time each day at the same time, Disp: , Rfl: Potassium 99 MG tablet, 1 (one) time each day at the same time, Disp: , Rfl: terbinafine (LamISIL) 250 MG tablet, 1 (one) time each day at the same time, Disp: , Rfl: verapamil ER (Verelan) 180 MG 24 hr capsule, 1 capsule 1 (one) time each day at the same time, Disp: , Rfl: Past Medical History: Diagnosis Date Diabetes mellitus ([facility]) GERD (gastroesophageal reflux disease) H/O chlamydia infection and trich Heavy menstrual bleeding Heavy menstrual bleeding Hyperlipidemia (CMS/HCC) Hypertension (CMS/HCC) Hypothyroidism (CMS/HCC) Kidney stones Nephrolithiasis Past Surgical History: Procedure Laterality Date APPENDECTOMY CHOLECYSTECTOMY COLONOSCOPY 2009 negative CYSTOSCOPY DILATION AND CURETTAGE OF UTERUS 3-4 MOUTH SURGERY teeth pulled OTHER SURGICAL HISTORY Exc mole from leg OTHER SURGICAL HISTORY Removal L clavicle secondary to benign tumor TONSILLECTOMY TUBAL LIGATION VAGINAL DELIVERY x3 Family History Problem Relation Name Age of Onset Pancreatic cancer Mother Diabetes Father Stroke Father Diabetes Mother's Sister Melanoma Maternal Grandmother Heart disease Maternal Grandfather Diabetes Paternal Grandmother Breast cancer Other Social History Tobacco Use Smoking Status Never Smokeless Tobacco Never Physical Exam - General appearance, mentation, extraocular movements, facial strength and movement, hearing, upper and lower extremity strength and tone, sensation to gross testing, coordination, and gait are normal or at baseline unless noted below. Physical Exam Constitutional: Appearance: Normal appearance. Genitourinary: Right Labia: No rash. Left Labia: No rash. Right Adnexa: no mass present. Left Adnexa: no mass present. No cervical lesion. Uterus is anteverted. Breasts: Right: Normal. No mass or nipple discharge. Left: Normal. No mass or nipple discharge. HENT: Head: Normocephalic and atraumatic. Cardiovascular: Rate and Rhythm: Normal rate and regular rhythm. Pulmonary: Breath sounds: Normal breath sounds. Abdominal: General: There is no distension. Palpations: Abdomen is soft. There is no mass. Tenderness: There is no abdominal tenderness. Musculoskeletal: General: Normal range of motion. Cervical back: Neck supple. Lymphadenopathy: Cervical: No cervical adenopathy. Neurological: Mental Status: She is alert and oriented to person, place, and time. Skin: General: Skin is warm and dry. Psychiatric: Mood and Affect: Mood normal. Behavior: Behavior normal. Assessment/Plan ICD-10-CM 1. Rash R21 Ambulatory referral to Dermatology 2. Encounter for screening mammogram for malignant neoplasm of breast Z12.31 Bilateral screening mammogram with tomosynthesis CANCELED: Bilateral screening mammogram with tomosynthesis 3. 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 Urge incontinence N39.41 Ambulatory referral to Urology 5. Cystocele, midline N81.11 6. Rectocele N81.6 7. Post-menopause Z78.0 Exam today 1. Urinary urgency: Mammogram and Dexa ordered - Assessment: Patient reports difficulty getting to the bathroom on time. She is currently taking Myrbetriq for this issue, but it appears to be ineffective. The urgency is particularly problematic when getting up from bed. - Plan: a) Refer to urologist for further evaluation and management of urinary urgency. 2. Dermatological issues: - Assessment: Patient presents with multiple dermatological concerns, including facial skin issues and lesions on the trunk and other unspecified areas of the body. A previous treatment with a topical medication (details unclear) has been ineffective. Patient reports soreness associated with the lesions and mentions having to scratch them, which raises concerns about potential bacterial infection due to nail contamination. - Plan: a) Refer to heel blacker for comprehensive evaluation and management of facial skin issues and body lesions. b) Advise patient to avoid scratching lesions to prevent potential bacterial infection. 3. Preventive care: - Assessment: Patient is due for routine preventive screenings. - Plan: a) Schedule mammogram at [facility]. b) Schedule bone density scan at [facility]. Assessment & Plan documented in this encounter [facility] 05-05-2024 Evaluation note Diagnosis Onset Date Resolution Flank pain noneactive May 05, 1:32pm [facility] Work Phone: 1(378) 471-729908-26-2024 Evaluation note* Diagnosis Onset Date Resolution Status Admit Date Flank pain noneactive May 05, 2 024 1:32pm Constipation acute July 12:58pm Essential hypertension acute No vem2023 12:58pm Hypothyroidism acute July 112023 12:58pm Type 2 diabetes mellitus acute July 21, 2024 12:58pm [facility] Work Phone: 1(902) 316-981105-08-2024 Miscellaneous Notes* Telephone Encounter - Ktahy Coleman CMA - 01/16/2024 10:27 AM EDT Care Coordination Outreach performed to coordinate overdue appointments, testing, and/or follow-up care: Yes Audit/Outreach Date: January 16, 2024 Reason: Chronic Condition Appt Method: Telephone and Letter Outreach Attempt: First Outcome: No Answer/Busy and letter sent Next PCP Appointment: N/A Tests/Referrals Pended: N/A Resources/Education Provided: Additional Comments: Unable to reach patient by telephone to schedule appointment. Letter sent.Patient appears to have possibly transferred care. [facility]* Telephone Encounter - Kathy Coleman CMA - 01/16/2024 10:27 AM EDT Care Coordination Outreach performed to coordinate overdue appointments, testing, and/or follow-up care: Yes Audit/Outreach Date: January 16, 2024 Reason: Chronic Condition Appt Method: Telephone and Letter Outreach Attempt: First Outcome: No Answer/Busy and letter sent Next PCP Appointment: N/A Tests/Referrals Pended: N/A Resources/Education Provided: Additional Comments: Unable to reach patient by telephone to schedule appointment. Letter sent.Patient appears to have possibly transferred care. [facility]01[facility] Evaluation note* Encounter Date Diagnosis Assessment Notes Treatment Notes Treatment Clinical Notes Sep, Essential hypertension (ICD-10 - I10) [facility] Other 12-05-2023 Evaluation note* Encounter Date Diagnosis [...] - E03.9) Recent TFTs in normal range 03/2023 05 Dec, 2023 Constipation (ICD-10 - K59.00) Encouraged to increase water intake, she is compliant with daily stool softener. Will f/u if no improvement or worsening symptoms. [facility] Other 09-05-2023 Evaluation note* Encounter Date Diagnosis [...] eval if no improvement or worsening symptoms. [facility] Other 07-05-2023 Evaluation note* Encounter Date Diagnosis [...] control symptoms Mar, Vertigo (ICD-10 - R42) [facility] Other Evaluation + Plan note Future Appointments Appointment Date:03/31/2025 12:30:00 PM Scheduled Provider:Sherry Roth PA-C Location:[facility] Appointment Type:URO Office Visit [facility] evaluation noteNo InformationN[place] Other Evaluation note* Diagnosis Onset Date Resolution Status Age-related memory disorder acute [facility] Work Phone: Evaluation note* Diagnosis Onset Date Resolution Status Age-related memory disorder acute Essential hypertension acute Hypothyroidism acute Medicare annual wellness visit, subsequent acute Type 2 diabetes mellitus acu te [facility] Work Phone: Evaluation note* Diagnosis Onset Date Resolution Status Age-related memory disorder acute Age-related memory disorder acute Essential hypertension acute Hypothyroidism acute Medicare annual wellness visit, subsequent acute Type 2 diabetes mellitus acu te [facility] Work Phone: Evaluation note* Diagnosis Onset Date Resolution Status Age-related memory disorder acute Age-related memory disorder acute Essential hypertension acute Hypothyroidism acute Medicare annual wellness visit, subsequent acute Type 2 diabetes mellitus acu te Essential hypertension acute [facility] Work Phone: Evaluation noteNo assessment information available [facility] Work Phone: evaluation note* Diagnosis Onset Date Resolution Status Essential hypertension acute Type 2 diabetes mellitus acu te Flank pain noneactive [facility] Work Phone: Evaluation note* Diagnosis Rash- Primary Rash and other nonspecific skin eruption Encounter for screening mammogram for malignant neoplasm of breast Osteoporosis, post-menopausal (CMS/HCC) Senile osteoporosis Urge incontinence Cystocele, midline Rectocele Post-menopause Asymptomatic postmenopausal status (age-related) (natural) [facility] - Reported* Type Description Date Medical History type 2 diabetic Medical History hypertension Medical History hypothyroidism Surgical History T&A Surgical History Appendectomy Surgical History D&C Surgical History Cholecystectomy Surgical History Nephrolithiasis Surgical History left clavicle sx Hospitalization History see above Hospitalization History child [facility] Other Hospital course Narrative No data available for this section [facility] InstructionsNot on filedocumented in this encounter [facility] No data available for this section [facility] reason for referral (narrative)* Reason cognitive evaluation for memory change pt phone# [phone] Diagnosis 1 Memory impairment (R 41.3) Referral Organization [facility] Referring Provider First Name Paty Referring Provider Last Name Manisha Referring Provider Specialty Family [facility] cine Referred Organization [facility] Referred Address [address],[id number] Referred Provider Specialty Neuropsychia try Referral Priority Routine General Notes Alisha Cortez 01/2023 02:13:24 PM >referral received, please call [phone] to schedule appt [facility] Other Summary Purpose Family History No Family [...] Date/ Time Advance Directives No October 5:32pm Advance Directive Response Recorded Date/ Time Advance Directives No October 4:32pm Chief Complaint and Reason for Visit Chief [...] 2 diabetes mellitus Flank pain Chief Complaint Admit Date possible kidney infection May 05, 024 1:32pm R10.9 May 05, 2024 2: 06pm R10.9 May 06, 2024 2: 18pm 3 month follow up a1c July 21 12:58pm Reason for Visit Admit Date Flank pain May 05, 2024 1: 32pm Chief Complaint Admit Date possible kidney infection May 05 024 1:32pm R10.9 May 05, 2024 2: 06pm R10.9 May 06, 2024 2: 18pm 3 month follow up a1c July 21 12:58pm E03.9 I10 July 21, 2024 2:13pm Reason for Visit Admit Date Flank pain May 05, 2024 1: 32pm Constipation July 21, 2024 12:58pm Essential hypertension July 21 12:58pm Hypothyroidism July 21, 2024 12:58pm Type 2 diabetes mellitus July 21, 2024 12:58pm Chief Complaint Admit Date mcsawv January 19, 2025 12:48 pm Additional Source Comments INFORMATION SOURCE (unrecogn ized section and content) DATE CREATED AUTHOR 01/28/2022 [facility] DATE CREATED AUTHOR AUTHOR'S ORGANIZ ATION 02/16/2023 [facility] DATE CREATED AUTHOR AUTHOR'S ORGANIZ ATION 07/23/2024 [facility] DATE CREATED AUTHOR AUTHOR'S ORGANIZ ATION 01/15/2025 [facility] EPIC DATE CREATED AUTHOR AUTHOR'S ORGANIZ ATION 02/06/2025 [facility] REASON FOR VISIT (unrecogniz ed section and content) Reason Onset Date Comments appointment due 01/16/2024 Reason Comments Gynecologic Exam Patient present for yearly. Patient states she's tried OTC stool softener. Patient states she's on myrbetriq and still has trouble making it to restroom in time. Care Teams (unrecognized sec tion and content) [...] 2023 Team Status: Inactive Member Role Status Lizbeth Dyer DO Primary Care Provide r, Attending Provider Active Start: December 14, 2023 End: December 14, 2023 Team Status: Active Member Role Status Lizbeth Dyer DO Primary Care Provider Active Start: December 19, 2023 NATALI Jacobs Attending Provider Active S tart: December 19, 2023 Team Status: Active Member Role Status Lizbeth Dyer DO Primary Care Provide r, Attending Provider Active Start: December 26, 2023 Team Status: Inactive Member Role Status Lizbeth Dyer DO Primary Care Provide r, Attending Provider Active Start: December 26, 2023 End: December 26, 2023 Team Status: Inactive Member Role Status Lizbeth Dyer DO Primary Care Provide r, Attending Provider Active Start: April 18, 2024 End: April 18, 2024 Team Status: Inactive Member Role Status Lizbeth Dyer DO Primary Care Provider Active Start: May 05, 2024 End: May 05, 2024 Henry Burns APRN Attending Provider Active Start: May 05, 2024 End: May 05, 2024 Team Status: Inactive Member Role Status Lizbeth Dyer DO Primary Care Provider Active Start: May 06, 2024 End: May 06, 2024 Henry Burns APRN Attending Provider Active Start: May 06, 2024 End: May 06, 2024 Team Status: Inactive Member Role Status Lizbeth Dyer DO Primary Care Provide r, Attending Provider Active Start: July 21, 2024 End: July 21, 2024 Management Nurse Rn Relationship Specialty Start Date End Date Paty Dyer MD [address] [place] [address] PCP - General Family Medicine 10/12/23 Management Nurse Rn Relationship Specialty Start Date End Date Paty Dyer DO PCP - General Family Medicine 09/05/23 Team Status: Inactive Member Role Status Dates Paty Dyer DO Primary Care Provide r, Attending Provider Active Start: January 19, 2025 End: January 19, 2025 Goals (unrecognized section and content) Goals may [...] BE BASED ON THE PRIMARY CLINICAL RECORDS. [facility] [employer] [facility]. provides no warranty or guarantee of the accuracy or completeness of information in this document.
== END 2025-02-09 12:30 | disposition home or self-care (01) ==
LOC: MAMMO 12:30
PROVIDERS: PCP Family Medicine; Visit Provider Family Medicine
DX: Z12.31 Encounter for screening mammogram for malignant neoplasm of breast (principal); Z80.3 Family history of malignant neoplasm of breast; Z80.8 Family history of malignant neoplasm of other organs or systems
CPT/HCPCS: 77063; 77067

== ENCOUNTER 2025-07-24 09:25 | Outpatient (OUT) | payer MEDICARE, SELFPAY ==
--- OUTSIDE RECORDS SUMMARY | 2025-07-24 09:28 | XMS_ITS | Clinical Summary ---
Author Organization [employer] Address [id number] [address] [place] [address] Care Team Providers Care Rn Relief Charge Name Role Phone Paty Dyer MD Primary Care Provider [phone] Allergies No known active allergies Medications MedicationSigDispense QuantityRefillsLast FilledStart DateEnd DateStatus terbinafine (LamISIL) 250 mg tablet Active prasterone, dhea, 50 mg tablet Active potassium gluconate 595 mg (99 mg) tablet extended release Active aspirin 81 mg Take 1 tablet (81 mg total) by mouth daily. 100 tablet ctive cholecalciferol, vitamin D3, 25 mcg (1,000 unit) capsule Take 1 capsule (1,000 Units total) by mouth in the morning. 90 capsule ctive docusate sodium (COLACE) 100 mg capsule Indications:Constipation, unspecified constipation type1 capsule as needed Orally Once a day 10 capsule 02/23/2023ctive mirabegron (MYRBETRIQ) 25 mg tablet extended release 24 hr Indications:Urinary incontinence, unspecified typeTake 1 tablet (25 mg total) by mouth in the morning. 90 tablet ctive meclizine (ANTIVERT) 12.5 mg tablet Indications:Benign paroxysmal positional vertigo of right earTAKE 1 TABLET THREE TIMES A DAY NEEDED FOR DIZZINESS 90 tablet ctive amLODIPine (NORVASC) 10 mg tablet TAKE 1 TABLET IN THE MORNING 90 tablet ctive lovastatin (MEVACOR) 40 mg tablet TAKE 1 TABLET NIGHTLY 90 tablet ctive metFORMIN (GLUCOPHAGE) 500 mg tablet Take 1 tablet (500 mg total) by mouth in the morning and 1 tablet (500 mg total) in the evening. Take with meals. 180 tablet ctive levothyroxine (SYNTHROID, LEVOTHROID) 75 MCG tablet TAKE 1 TABLET IN THE MORNING 90 tablet 07/30/2023ctive liothyronine (CYTOMEL) 5 MCG tablet TAKE 1 TABLET THREE TIMES A WEEK 39 tablet 07/30/2023ctive Active Problems ProblemNoted DateDiagnosed DateUrinary hedyllndatdi07/16/2023onstipation 02/23/2023enign paroxysmal positional vertigo of right ear11/16/2022Essential kxfhenvusnbw46/07/6470Fgrzbhuenle11/07/5305Cjgejmnjonnvcx83/07/2022ectocele 07/17/2022tage 3 chronic kidney kjzbwox9007/17/2022Type 2 diabetes mellitus with stage 3a chronic kidney disease and uenmjlmzjimm02/07/2022Female cystocele 10/25/2021Urge incontinence of urine10/25/2021DD (degenerative disc disease), htqjjbwi63/12/2018Chronic cough02/14/2018Mixed pmaefduvzbksma24/28/2017Atrophic ygfjexkuj26/07/2016 Immunizations ImmunizationAdministration DatesNext DueInfluenza (IM) Preservative Free 06/13/2016,05/24/2015Influenza High Dose Preservative Free IM07/09/2018, 06/11/2018Influenza Whole06/30/2009,07/10/2007Influenza, High-dose, Quadrivalent 06/22/2022,06/20/2021Influenza, Injectable, Mdck, Preservative Free, Quad 06/07/2017Influenza, Injectable, Maoyyslkloak85/04/2017Influenza, Recombinant, Quadrivalent, Injectable, Shuvlkk5206/22/2020Pneumococcal Conjugate 13-Valent 11/12/2014Pneumococcal Iuqqoholffkols64/25/6243Hjwl08/13/2012Zoster Live 12/11/2011Zoster Vaccine Pawmomjxvcz18/09/2021,12/13/2020 Family History Medical HistoryRelationNameCommentsPancreatic cancerMaternal Grandmother Pancreatic cancerMotherStrokeSister 1Pancreatic cancerSister 3RelationNameStatus CommentsBrother 1AliveBrother 2AliveBrother 3AliveMaternal GrandmotherDeceased MotherDeceasedSister 1AliveSister 2AliveSister 3Deceased Social History Tobacco UseTypesPacks/DayYears UsedDateSmoking Tobacco: NeverSmokeless Tobacco: Never Tobacco Cessation:Counseling Given: Not Answered Alcohol UseStandard Drinks/WeekCommentsNever0 (1 standard drink = 0.6 oz pure alcohol)Social Connection and Isolation PanelAnswerDate RecordedIn a typical week, how many times do you talk on the phone with family, friends, or neighbors?More than three times a week01/30/2023How often do you get together with friends or relatives?Once a week01/30/2023How often do you attend restoration or jain services?Never01/30/2023o you belong to any clubs or organizations such as restoration groups, unions, fraHar[employer] University or athletic groups, or school groups?No 01/30/2023How often do you attend meetings of the clubs or organizations you belong to?Never01/30/2023re you , , , , never , or living with a partner?Wgjbacqh54/23/2023UDIT-CAnswerDate Recorded Q1: How often do you have a drink containing alcohol?Never01/30/2023Q2: How many drinks containing alcohol do you have on a typical day when you are drinking? Patient does not drink01/30/2023Q3: How often do you have six or more drinks on one occasion?Never01/30/2023Overall Financial Resource Strain (CARDIA)AnswerDate RecordedHow hard is it for you to pay for the very basics like food, housing, medical care, and heating?Not hard at all01/30/2023HQ-2AnswerDate RecordedTotal Ahlkr567[facility] [place] [facility] Occupational Health - Occupational Stress QuestionnaireAnswerDate RecordedDo you feel stress - tense, restless, nervous, or anxious, or unable to sleep at night because yourmind is troubled all the time - these days?Not at all01/30/2023Exercise Vital SignAnswerDate RecordedOn average, how many days per week do you engage in moderate to strenuous exercise (like a brisk walk)?0 days01/30/2023On average, how many minutes do you engage in exercise at this level?0 min01/30/2023RAPARE - TransportationAnswerDate RecordedIn the past 12 months, has lack of transportation kept you from medical appointments or from getting medications?No01/30/2023In the past 12 months, has lack of transportation kept you from meetings, work, or from getting things needed for daily living?No01/30/2023Housing InstabilityAnswerDate RecordedAre you worried or concerned that in the next two months you may not have stable housing that you own, rent or stay in as a part of a household?No01/30/2023 ChildcareAnswerDate RecordedDo problems getting infant childcare provider make it difficult for you to work or study?No01/30/2023EmploymentAnswerDate RecordedDo you need help finding a local career center and/or a training program?No01/30/2023Hunger ScreeningAnswerDate RecordedWithin the past 12 months we worried whether our food would run out before we got money to buy more.Never True02/23/2023Within the past 12 months the food we bought just didn't last and we didn't have money to get more.Never True02/23/2023urpose - LifeAnswerDate RecordedI have a purpose and direction in my life.Strongly Agree01/30/2023CommentsUnknown Sex and Gender InformationValueDate RecordedSex Assigned at BirthNot on file Legal GdjDqmqnk38/06/2015 11:23 AM EDTGender IdentityNot on fileSexual OrientationNot on file Last Filed Vital Signs Vital SignReadingTime TakenCommentsBlood Dblxtrtr937/68002/23/2023 9:57 AM EDT Bhcdb309302/23/2023 9:57 AM JTTYqhpqzvanhv82.2 ??C (97.2 ??F)02/23/2023 9:57 AM EDTRespiratory Vxwj301602/23/2023 9:57 AM EDTOxygen Iymrcogdmi222%02/23/2023 9:57 AM EDTInhaled Oxygen Concentration--Ijhnku07.7 kg (114 lb)02/23/2023 9:57 AM EDT Cfgoxj409 cm (5' 3 )02/23/2023 9:57 AM EDTBody Mass Index20.19002/23/2023 9:57 AM EDT Plan of Treatment Health MaintenanceDue DateLast DoneCommentsTobacco Uhlzvduxu56/27/1956RSV ( or age 60+ yrs) (1 - 1-dose 75+ series)2019DTaP,Tdap and Td Vaccines (2 - Td or Tdap)/Fall Risk Wlpgdqyyp47/23/2024 01/30/2023epression Xvakhglfv12/3COVID-19 Vaccine ( season), 12/21/2021, 07/20/2021, Additional history exists Influenza Wsfbcps65, 06/20/2021, 06/22/2020, Additional history existsZoster (Shingles) OrasrhqQwzoeasbc25/09/2021, 12/13/2020, 12/11/2011 Medical Devices Not on file Insurance Care Teams Team MemberRelationshipSpecialtyStart DateEnd Date Paty Dyer MD [address] [place] [address] PCP - GeneralFamily Medicine10/12/23
--- OUTSIDE RECORDS SUMMARY | 2025-07-24 09:28 | XMS_ITS | Clinical Summary ---
Author Organization [facility] Address [address] [place] [address], [address] [place] [address] Care Team Providers Care School Commissioner Name Role Phone Unavailable Primary Care Provider Unavailabl e Social History Tobacco UseTypesPacks/DayYears UsedDateSmoking Tobacco: Never Assessed CommentsUnknownSex and Gender InformationValueDate RecordedSex Assigned at Not on fileLegal TdoQjnfxc76/10/2013 11:41 AM ESTGender IdentityNot on file Sexual OrientationNot on file Plan of Treatment Not on file
--- OUTSIDE RECORDS SUMMARY | 2025-07-24 09:28 | XMS_ITS | Clinical Summary ---
Author Organization [facility] Address [address] [place] [address] Care Team Providers Care Alteration Workroom Supervisor Name Role Phone Paty Dyer DO Primary Care Provider [phone] Allergies No known active allergies Medications MedicationSigDispense QuantityRefillsLast FilledStart DateEnd DateStatus verapamil ER (Verelan) 180 MG 24 hr capsule 1 capsule 1 (one) time each day at the same timeActive terbinafine (LamISIL) 250 MG tablet 1 (one) time each day at the same timeActive dehydroepiandrosterone (DHEA) 50 MG tablet OrallyActive Potassium 99 MG tablet 1 (one) time each day at the same timeActive omega-3 (Fish Oil) 1000 MG capsule 1 capsule 1 (one) time each day at the same timeActive metFORMIN (Glucophage) 1000 MG tablet every 12 (twelve) hoursActive lovastatin (Mevacor) 40 MG tablet 1 (one) time each day at the same timeActive lisinopril 40 MG tablet 1 (one) time each day at the same timeActive liothyronine (Cytomel) 5 MCG tablet 1 tablet on an empty stomach Orally M,W,FActive levothyroxine (Synthroid, Levoxyl) 75 MCG tablet 1 (one) time each day at the same timeActive hydroCHLOROthiazide (HYDRODiuril) 50 MG tablet 1 (one) time each day at the same timeActive glimepiride (Amaryl) 4 MG tablet every 12 (twelve) hoursActive Docusate Sodium (DSS) 100 MG capsule 1 (one) time each day at the same timeActive cinnamon 500 MG capsule as directed OrallyActive amLODIPine (Norvasc) 10 MG tablet 1 (one) time each day at the same timeActive Family History Medical HistoryRelationNameCommentsDiabetesFatherStrokeFatherHeart disease Maternal GrandfatherMelanomaMaternal GrandmotherPancreatic cancerMotherDiabetes Mother's SisterBreast cancerOtherDiabetesPaternal GrandmotherRelationNameStatus CommentsDaughter2 daughtersFatherDeceasedMaternal GrandfatherMaternal GrandmotherMotherDeceasedMother's SisterOthermaternal great auntPaternal GrandmotherSon1 son Social History Tobacco UseTypesPacks/DayYears UsedDateSmoking Tobacco: NeverSmokeless Tobacco: Never Tobacco Cessation:Counseling Given: Not Answered Alcohol UseStandard Drinks/WeekCommentsYes1 (1 standard drink = 0.6 oz pure alcohol)caffeine intake : 2-3 cups per day ; coffeeCommentsNoSex and Gender InformationValueDate RecordedSex Assigned at BirthNot on fileLegal Sex Evojdm7411/22/2022 7:20 PM EDTGender IdentityNot on fileSexual OrientationNot on file Last Filed Vital Signs Vital SignReadingTime TakenCommentsBlood Ehggtroy334/62001/12/2025 2:30 PM EDT Pulse--Temperature--Respiratory Rate--Oxygen Saturation--Inhaled Oxygen Concentration--Rrxmws87.4 kg (120 lb)01/12/2025 2:30 PM LGBHrwpsk608.5 cm (5' 2 )08/31/2021 12:00 PM ESTBody Mass Index21.9508/31/2021 12:00 PM EST Plan of Treatment DateTypeDepartmentCare Team (Latest Contact Info)Vllollxamgj49/11/2026 2:30 PM EDTOffice Visit [facility] [address] [facility] [address] [place] [address] Zeb Cruz MD [address] [facility] [address] [place] [address] Health MaintenanceDue DateLast DoneCommentsCOVID-19 Vaccine ( season) 4, 06/17/2023, 12/21/2021, Additional history existsInfluenza Vaccine (#1)509/, 06/17/2023, 06/22/2022, Additional history existsPneumococcal Vaccine: 65+ UivvxXhdpctneu23/25/2017, 11/12/2014 Insurance Care Teams Team MemberRelationshipSpecialtyStart DateEnd Date Paty Dyer DO [address] [facility] [place] [id number] PCP - GeneralFamily Bvcxjbiq21/27/23
[2025-07-24 10:19] LABS: Hematocrit 34.3 % (36.0-48.0); Hemoglobin 11.8 g/dL (12.0-16.0); Immature Granulocytes Abs Auto 0.01 10^3/uL (0.00-0.03); Immature Granulocytes Pct Auto 0.2 % (0.0-0.5); Lymphocytes Absolute Auto 1.9 10^3/uL (1.2-3.8); Mean Corpuscular HGB Conc 34.4 g/dL (29.9-35.2); Mean Corpuscular Hemoglobin 32.9 pg (26.7-34.0); Mean Corpuscular Volume 95.5 fL (81.0-99.0); Platelet Count 260 10^3/uL (150-450); Red Blood Count 3.59 10^6/uL (4.20-5.40); White Blood Count 4.9 10^3/uL (4.0-11.0)
[2025-07-24 11:36] LABS: Alanine Aminotransferase 27 U/L (14-59); Albumin Globulin Ratio 1.1; Albumin Level 4.2 g/dL (3.4-5.0); Alkaline Phosphatase 68 U/L (46-116); Anion Gap 11.7; Aspartate Amino Transferase 23 U/L (15-37); Blood Urea Nitrogen 19.0 mg/dL (7.0-18.0); Calcium 10.1 mg/dL (8.5-10.1); Carbon Dioxide 29.2 mmol/L (21.0-32.0); Chloride 105 mmol/L (98-107); Cholesterol 159 mg/dL (<=200); Estimated GFR (African America 47 (>=60 mL/min/1.73m^2); Estimated GFR (Non-African Ame 39 (>=60 mL/min/1.73m^2); Globulin 3.9 g/dL; Glucose 114 mg/dL (74-106); HDL Cholesterol 76 mg/dL (40-60); Potassium 3.9 mmol/L (3.5-5.1); Sodium 142 mmol/L (136-145); TSH W/ REFLEX FT4 1.337 uIU/mL (0.358-3.740); Total Protein 8.1 g/dL (6.4-8.2); Triglycerides 106 mg/dL (<=150); VLDL CHOLESTEROL 21.2 mg/dL
[2025-07-25 04:07] LABS: Vitamin B12 379 pg/mL (232-1245)
== END 2025-07-24 09:26 | disposition home or self-care (01) ==
LOC: LAB 09:25
PROVIDERS: PCP Nurse Practitioner Family; Visit Provider Nurse Practitioner Family
DX: E11.22 Type 2 diabetes mellitus with diabetic chronic kidney disease (principal); N18.31 Chronic kidney disease, stage 3a; R39.81 Functional urinary incontinence; E03.9 Hypothyroidism, unspecified; I12.9 Hypertensive chronic kidney disease with stage 1 through stage 4 chronic kidney disease, or unspecified chronic kidney disease
CPT/HCPCS: 36415; 80053; 80061; 82043; 82570; 82607; 84443; 85025